=== PATIENT | male | born 1950 | race Caucasian/White ===

== ENCOUNTER 2018-04-02 14:08 | Inpatient (IN) | payer OTHER, SELFPAY ==
[2018-04-02 14:40] VITALS: BP 158/88; PULSE 76; RESP 17; TEMP 36.2; O2SAT 97
[2018-04-02 15:13] LABS: Bacteria Urine Occasional (0-1); Ictotest Urine Positive (Negative); RBC Urine 0-1/HPF (0-5/HPF); Squamous Epithelial Cell Urine 0-1 /HPF; WBC Urine 1-5/HPF (0-5/HPF)
[2018-04-02 15:14] LABS: Culture Indicated Urine Specimen Cultured; Mucus Urine 2+ (Negative)
[2018-04-02 15:20] LABS: Add Manual Diff / Slide Review NO; Basophils Percent Auto 0.5 % (0-2); Eosinophils Percent Auto 1.2 % (2-4); Hematocrit 44.3 % (41-53); Hemoglobin 15.2 g/dL (13.5-17.5); Lymphocytes Percent Auto 9.2 % (25-40); Mean Corpuscular HGB Conc 34.4 % (30-36); Mean Corpuscular Hemoglobin 29.5 PG (26-34); Monocytes Percent Auto 8.8 % (3-14); Neutrophils Absolute Auto 7000 /uL (3000-5900); Neutrophils Percent Auto 80.3 % (50-75); Platelet Count 193 X10^3/uL (150-400); Red Blood Cell Count 5.15 X10^6/uL (4.5-5.9); Red Cell Distribution Width 14.7 % (11.6-14.8); White Blood Cell Count 8.7 X10^3/uL (4.5-11.0)
[2018-04-02 15:29] LABS: INR 0.9 (0.9-1.3); Prothrombin Time 10.1 SECONDS (10.1-12.7)
[2018-04-02 15:32] LABS: PTT Partial Thromboplastin Tim 59 SECONDS (26.4-36.2)
[2018-04-02 15:33] LABS: Alanine Aminotransferase 312 IU/L (21-72); Albumin 3.9 g/dL (3.5-5.0); Alkaline Phosphatase 291 U/L (38-126); Aspartate Aminotransferase 178 IU/L (17-59); BUN Creatinine Ratio 21.4 (6-22); Bilirubin Total 9.6 mg/dL (0.2-1.3); Blood Urea Nitrogen 15 mg/dL (9-20); Calcium 8.8 mg/dL (8.4-10.2); Carbon Dioxide 25 mmol/L (22-32); Chloride 101 mmol/L (98-107); Estimated Glomerular Filt Rate > 60.0 mL/min (>60); Glucose 127 mg/dL (80-110); HEMOLYSIS < 15 (0-50); Lipase 134 U/L (23-300); Potassium 3.7 mmol/L (3.4-5.1); Sodium 139 mmol/L (137-145); Total Protein 7.9 g/dL (6.3-8.2)
--- NOTE | 2018-04-02 16:20 | ED.MALEGU ---
HPI - Male Genitourinary <ALEXEY Lorenzana - Last Filed: 04/02/18 21:31> General Chief complaint: Urogenital-Male Stated complaint: skin and eyes yellow Time Seen by Provider: 04/02/18 16:19 Source: patient Mode of arrival: ambulatory Limitations: no limitations History of Present Illness HPI Narrative: 67-year-old male with history of hyperlipidemia and is a former smoker here for complaint of having nausea vomiting with generalized abdominal discomfort over the past for 5 days. He also states that he noticed that his skin is yellow and his eyes were yellow over the past couple of days. Positive p.o. intake. Last bowel movement was earlier today as unremarkable. He also reports having dark colored urine. He denies any dysuria. He denies any frequent urination. He denies any right upper quadrant pain however does state that he has had some pain to his generalized abdomen periodically. he denies any recent travel. He denies any history of hepatitis. Related Data Home Medications Medication Instructions Recorded Confirmed vit C,T-Cv-mdcjd-lutein-zeaxan 1 tab PO QDAY #0 01/09/17 04/02/18 [PreserVision AREDS-2] [probiotic] See Label Instructions PO .QDAY 11/07/17 04/02/18 aspirin 81 mg tablet,delayed 81 mg PO DAILY tab 11/07/17 04/02/18 release vitamin D3 3,775 unit-folic acid 1 1 cap PO DAILY #0 cap 11/07/17 04/02/18 mg capsule Allergies Allergy/AdvReac Type Severity Reaction Status Date / Time amoxicillin [AMOXICILLIN] Allergy Intermediate HIVES-DELAYED Verified 04/02/18 14:40 RESPONSE Review of Systems <ALEXEY Lorenzana - Last Filed: 04/02/18 21:31> Constitutional Denies chills, Denies fever(s), Denies lethargy and Denies weakness Eyes Denies change in vision, Denies eye discharge, Denies irritation and Denies loss of vision ENT Ears, Nose, Mouth, and Throat: Denies change in voice, Denies neck pain and Denies sore throat Cardiovascular Denies chest pain, Denies irregular heart rhythm, Denies lightheadedness, Denies palpitations, Denies dyspnea, Denies dyspnea on exertion and Denies orthopnea Respiratory Denies cough, Denies dyspnea, Denies dyspnea on exertion and Denies wheezing Gastrointestinal Gastrointestinal: Reports abdominal pain, Reports nausea and Reports vomiting Genitourinary Denies hematuria, Denies flank pain, Denies urinary incontinence and Denies urinary urgency Musculoskeletal Denies neck pain Integumentary/Breasts Denies pruritus, Denies erythema, Denies rash and Denies wounds Neurologic Denies confusion, Denies loss of vision and Denies weakness Psychiatric Denies anxiety, Denies confusion, Denies depression, Denies homicidal ideation and Denies suicidal ideation Endocrine Denies palpitations Hematologic/Lymphatic Denies easy bruising Allergic/Immunologic Denies wheezing Exam <ALEXEY Lorenzana - Last Filed: 04/02/18 21:31> Initial Vital Signs Initial Vital Signs: Vital Signs Temperature 97.2 F L 04/02/18 14:40 Pulse Rate 76 04/02/18 14:40 Respiratory Rate 17 04/02/18 14:40 Blood Pressure 158/88 H 04/02/18 14:40 Pulse Oximetry 97 04/02/18 14:40 Const General: cooperative and well developed Nutritional Appearance: well nourished Orientation: alert, awake, oriented x3 and not confused [facility] Mouth: oral mucosae normal and moist mucous membranes Eyes Conjunctivae: conjunctivae normal Sclera: sclerae normal and scleral abnormality ( Jaundice) bilaterally Pupils: PERRL EOM: EOM intact bilaterally Resp Effort & Inspection: normal respiratory effort, able to speak in complete sentences, no respiratory distress and no use of accessory muscles Auscultation: clear to auscultation bilaterally, no rales, no rhonchi and no wheezes Cardio Rate: regular rate Rhythm: regular rhythm Heart Sounds: no click, no gallops, no murmurs and no rubs Pulses: normal peripheral pulses GI Inspection: non-distended Palpation: soft, no hepatosplenomegaly, No guarding, No pulsatile mass and No tender Auscultation: normal bowel sounds General: No CVA tenderness Skin General: no rashes or lesions noted, No jaundice and No petechiae Neuro General: alert, oriented x3, gait normal and no focal motor deficits Speech: speech normal <Patti Cannon DO - Last Filed: 04/03/18 07:23> Initial Vital Signs Initial Vital Signs: Vital Signs Temperature 97.2 F L 11/29/18 14:40 Pulse Rate 76 04/02/18 14:40 Respiratory Rate 17 04/02/18 14:40 Blood Pressure 158/88 H 04/02/18 14:40 Pulse Oximetry 97 04/02/18 14:40 Course <ALEXEY Lorenzana - Last Filed: 04/02/18 21:31> Orders Ordered: Dextrose/Sodium Chloride (Dextrose 5%-0.45% Ns) 1,000 mls @ 125 mls/hr IV CONT KALIE Last Admin: 04/03/18 05:27 Dose: 125 mls/hr Infusion: 04/03/18 05:18 Dose: 125 mls/hr Admin: 04/02/18 21:18 Dose: 125 mls/hr Morphine Sulfate (Morphine) 2 mg IV Q4HR PRN PRN Reason: Pain, Moderate (4-6) Discontinued Medications Sodium Chloride (Normal Saline 0.9%) 1,000 mls @ 1,000 mls/hr IV BOLUS ONE Stop: 04/02/18 17:34 Last Infusion: 04/02/18 19:01 Dose: 0 mls/hr Admin: 04/02/18 17:08 Dose: 1,000 mls/hr Sodium Chloride (Normal Saline 0.9%) 1,000 mls @ 125 mls/hr IV CONT KALEI Last Infusion: 04/02/18 20:38 Dose: 125 mls/hr Infusion: 04/02/18 20:31 Dose: 0 mls/hr Admin: 04/02/18 20:01 Dose: 125 mls/hr Vital Signs - 8 hr 04/03/18 05:29 Temperature 98.1 F Pulse Rate 74 Respiratory Rate 18 Blood Pressure 115/77 Pulse Oximetry 96 <Patti Cannon DO - Last Filed: 04/03/18 07:23> Orders Ordered: Dextrose/Sodium Chloride (Dextrose 5%-0.45% Ns) 1,000 mls @ 125 mls/hr IV CONT KALIE Last Admin: 04/03/18 05:27 Dose: 125 mls/hr Infusion: 04/03/18 05:18 Dose: 125 mls/hr Admin: 04/02/18 21:18 Dose: 125 mls/hr Morphine Sulfate (Morphine) 2 mg IV Q4HR PRN PRN Reason: Pain, Moderate (4-6) Discontinued Medications Sodium Chloride (Normal Saline 0.9%) 1,000 mls @ 1,000 mls/hr IV BOLUS ONE Stop: 04/02/18 17:34 Last Infusion: 04/02/18 19:01 Dose: 0 mls/hr Admin: 04/02/18 17:08 Dose: 1,000 mls/hr Sodium Chloride (Normal Saline 0.9%) 1,000 mls @ 125 mls/hr IV CONT KALIE Last Infusion: 04/02/18 20:38 Dose: 125 mls/hr Infusion: 04/02/18 20:31 Dose: 0 mls/hr Admin: 04/02/18 20:01 Dose: 125 mls/hr Vital Signs - 8 hr 04/03/18 05:29 Temperature 98.1 F Pulse Rate 74 Respiratory Rate 18 Blood Pressure 115/77 Pulse Oximetry 96 MDM - Male Genitourinary <ALEXEY Lorenzana - Last Filed: 04/02/18 21:31> Lab Data Result diagrams: 04/02/18 15:11 04/02/18 15:11 Lab Results 04/02/18 04/02/18 04/02/18 Range/Units 14:48 15:11 15:11 WBC 8.7 (4.5-11.0) X10^3/uL RBC 5.15 (4.5-5.9) X10^6/uL Hgb 15.2 (13.5-17.5) g/dL Hct 44.3 (41-53) % MCV 86.0 (80-100) fL MCH 29.5 (26-34) PG MCHC 34.4 (30-36) % RDW 14.7 (11.6-14.8) % Plt Count 193 (150-400) X10^3/uL Neut % (Auto) 80.3 H (50-75) % Lymph % (Auto) 9.2 L (25-40) % [place] % (Auto) 8.8 (3-14) % Eos % (Auto) 1.2 L (2-4) % Baso % (Auto) 0.5 (0-2) % Neut # (Auto) 7000 H (6890-6827) /uL PT 10.1 (10.1-12.7) SECONDS INR 0.9 (0.9-1.3) APTT 59 H (26.4-36.2) SECONDS Sodium (137-145) mmol/L Potassium (3.4-5.1) mmol/L Chloride (98-107) mmol/L Carbon Dioxide (22-32) mmol/L BUN (9-20) mg/dL Creatinine (0.66-1.25) mg/dL Estimated GFR (>60) mL/min BUN/Creatinine Ratio (6-22) Glucose (80-110) mg/dL Calcium (8.4-10.2) mg/dL Total Bilirubin (0.2-1.3) mg/dL AST (17-59) IU/L ALT (21-72) IU/L Alkaline Phosphatase (38-126) U/L Total Protein (6.3-8.2) g/dL Albumin (3.5-5.0) g/dL Globulin (1.7-4.1) g/dL Albumin/Globulin Ratio (1.0-2.8) Lipase (23-300) U/L Urine Ictotest Positive H (Negative) Urine RBC 0-1/hpf (0-5/HPF) Urine WBC 1-5/hpf (0-5/HPF) Ur Squamous Epith Cells 0-1 /hpf Urine Bacteria Occasional (0-1) (None) Urine Mucus 2+ H (Negative) Ur Culture Indicated? Specimen cultured Micro UA Comment Not Reportable 04/02/18 Range/Units 15:11 WBC (4.5-11.0) X10^3/uL RBC (4.5-5.9) X10^6/uL Hgb (13.5-17.5) g/dL Hct (41-53) % MCV (80-100) fL MCH (26-34) PG MCHC (30-36) % RDW (11.6-14.8) % Plt Count (150-400) X10^3/uL Neut % (Auto) (50-75) % Lymph % (Auto) (25-40) % [place] % (Auto) (3-14) % Eos % (Auto) (2-4) % Baso % (Auto) (0-2) % Neut # (Auto) (2625-2213) /uL PT (10.1-12.7) SECONDS INR (0.9-1.3) APTT (26.4-36.2) SECONDS Sodium 139 (137-145) mmol/L Potassium 3.7 (3.4-5.1) mmol/L Chloride 101 (98-107) mmol/L Carbon Dioxide 25 (22-32) mmol/L BUN 15 (9-20) mg/dL Creatinine 0.70 (0.66-1.25) mg/dL Estimated GFR > 60.0 (>60) mL/min BUN/Creatinine Ratio 21.4 (6-22) Glucose 127 H (80-110) mg/dL Calcium 8.8 (8.4-10.2) mg/dL Total Bilirubin 9.6 H (0.2-1.3) mg/dL AST 178 H (17-59) IU/L ALT 312 H (21-72) IU/L Alkaline Phosphatase 291 H (38-126) U/L Total Protein 7.9 (6.3-8.2) g/dL Albumin 3.9 (3.5-5.0) g/dL Globulin 4.0 (1.7-4.1) g/dL Albumin/Globulin Ratio 1.0 (1.0-2.8) Lipase 134 (23-300) U/L Urine Ictotest (Negative) Urine RBC (0-5/HPF) Urine WBC (0-5/HPF) Ur Squamous Epith Cells Urine Bacteria (None) Urine Mucus (Negative) Ur Culture Indicated? Micro UA Comment Urine Dip Bedside Urine Glucose Negative Bedside Urine Bilirubin ++ 2 Bedside Urine Ketone - Negative Urine Specific [place] 1.025 Bedside Urine Occult Blood - Negative Bedside Urine pH 6.0 Bedside Urine Protein +/- 15 Bedside Urine Urobilinogen - Negative Bedside Urine Nitrite - Negative Bedside Urine Leukocytes + 70 Esterase MDM Narrative Medical decision making narrative: CBC was obtained was unremarkable. Chem panel shows elevated Bilirubin at 9.6. AST and ALT were also elevated at 178 and 312 respectively. alk-phos was elevated to 291. CT of the abdomen shows a a blockage at the distal common bile duct with some inflammation to the common bile duct wall with 1 cm diameter. there is some sludge in stones seen to the gallbladder however no gallbladder wall thickening. Discussed case with surgery Dr. Valverde recommends ERCP. Patient is a [place] patient. Discussed case with Dr. Lind who would like patient to go to [facility] for the ERCP. There is no bed available this evening so would request admission here and then transferred to [place] tomorrow for procedure. discussed case with Dr. Delarosa hospitalist who accepted patient for admission for tonight. Patient is bedridden patient services <Patti Joaquin Cannon, - Last Filed: 04/03/18 07:23> Lab Data Lab Results 04/02/18 04/02/18 04/02/18 Range/Units 14:48 15:11 15:11 WBC 8.7 (4.5-11.0) X10^3/uL RBC 5.15 (4.5-5.9) X10^6/uL Hgb 15.2 (13.5-17.5) g/dL Hct 44.3 (41-53) % MCV 86.0 (80-100) fL MCH 29.5 (26-34) PG MCHC 34.4 (30-36) % RDW 14.7 (11.6-14.8) % Plt Count 193 (150-400) X10^3/uL Neut % (Auto) 80.3 H (50-75) % Lymph % (Auto) 9.2 L (25-40) % [place] % (Auto) 8.8 (3-14) % Eos % (Auto) 1.2 L (2-4) % Baso % (Auto) 0.5 (0-2) % Neut # (Auto) 7000 H (7247-0916) /uL PT 10.1 (10.1-12.7) SECONDS INR 0.9 (0.9-1.3) APTT 59 H (26.4-36.2) SECONDS Sodium (137-145) mmol/L Potassium (3.4-5.1) mmol/L Chloride (98-107) mmol/L Carbon Dioxide (22-32) mmol/L BUN (9-20) mg/dL Creatinine (0.66-1.25) mg/dL Estimated GFR (>60) mL/min BUN/Creatinine Ratio (6-22) Glucose (80-110) mg/dL Calcium (8.4-10.2) mg/dL Total Bilirubin (0.2-1.3) mg/dL AST (17-59) IU/L ALT (21-72) IU/L Alkaline Phosphatase (38-126) U/L Total Protein (6.3-8.2) g/dL Albumin (3.5-5.0) g/dL Globulin (1.7-4.1) g/dL Albumin/Globulin Ratio (1.0-2.8) Lipase (23-300) U/L Urine Ictotest Positive H (Negative) Urine RBC 0-1/hpf (0-5/HPF) Urine WBC 1-5/hpf (0-5/HPF) Ur Squamous Epith Cells 0-1 /hpf Urine Bacteria Occasional (0-1) (None) Urine Mucus 2+ H (Negative) Ur Culture Indicated? Specimen cultured Micro UA Comment Not Reportable 04/02/18 Range/Units 15:11 WBC (4.5-11.0) X10^3/uL RBC (4.5-5.9) X10^6/uL Hgb (13.5-17.5) g/dL Hct (41-53) % MCV (80-100) fL MCH (26-34) PG MCHC (30-36) % RDW (11.6-14.8) % Plt Count (150-400) X10^3/uL Neut % (Auto) (50-75) % Lymph % (Auto) (25-40) % [place] % (Auto) (3-14) % Eos % (Auto) (2-4) % Baso % (Auto) (0-2) % Neut # (Auto) (0910-4636) /uL PT (10.1-12.7) SECONDS INR (0.9-1.3) APTT (26.4-36.2) SECONDS Sodium 139 (137-145) mmol/L Potassium 3.7 (3.4-5.1) mmol/L Chloride 101 (98-107) mmol/L Carbon Dioxide 25 (22-32) mmol/L BUN 15 (9-20) mg/dL Creatinine 0.70 (0.66-1.25) mg/dL Estimated GFR > 60.0 (>60) mL/min BUN/Creatinine Ratio 21.4 (6-22) Glucose 127 H (80-110) mg/dL Calcium 8.8 (8.4-10.2) mg/dL Total Bilirubin 9.6 H (0.2-1.3) mg/dL AST 178 H (17-59) IU/L ALT 312 H (21-72) IU/L Alkaline Phosphatase 291 H (38-126) U/L Total Protein 7.9 (6.3-8.2) g/dL Albumin 3.9 (3.5-5.0) g/dL Globulin 4.0 (1.7-4.1) g/dL Albumin/Globulin Ratio 1.0 (1.0-2.8) Lipase 134 (23-300) U/L Urine Ictotest (Negative) Urine RBC (0-5/HPF) Urine WBC (0-5/HPF) Ur Squamous Epith Cells Urine Bacteria (None) Urine Mucus (Negative) Ur Culture Indicated? Micro UA Comment Urine Dip Bedside Urine Glucose Negative Bedside Urine Bilirubin ++ 2 Bedside Urine Ketone - Negative Urine Specific [place] 1.025 Bedside Urine Occult Blood - Negative Bedside Urine pH 6.0 Bedside Urine Protein +/- 15 Bedside Urine Urobilinogen - Negative Bedside Urine Nitrite - Negative Bedside Urine Leukocytes + 70 Esterase Discharge Plan Departure Patient Disposition: Admitted As Inpatient Clinical Impression: Serum total bilirubin elevated Discharge Date/Time: 04/02/18 20:31 Interventions: ED Discharge Assessment Last Done: 04/02/18 20:22 Admit Date/Time: 04/02/18 20:07 Admit Provider: Leoncio Delarosa <Patti Cannon DO - Last Filed: 04/03/18 07:23> Cosign ED Attending Cosignature Attestation: I was immediately available in the department for consultation. This documentation has been reviewed and I agree with assessment and plan. Supervised by Patti Cannon DO
--- NOTE | 2018-04-02 16:35 | DI.CT.S_ITS ---
PROCEDURE: CT ABDOMEN PELVIS W CON INDICATIONS: jaundice elevated liver enzymes TECHNIQUE: After the administration of intravenous contrast, 5 mm thick sections acquired from the diaphragm to the symphysis. 5 mm coronal and sagittal reformats were acquired. For radiation dose reduction, the following was used: automated exposure control, adjustment of mA and/or kV according to patient size. COMPARISON: None. FINDINGS: Image quality: Excellent. ABDOMEN: Lung bases: Lung bases are clear. Heart size is normal. Solid organs: Liver is normal in size and enhancement. The gallbladder demonstrates apparent layering gallstone/sludge. No musa gallbladder wall thickening is seen. There is intrahepatic and extrahepatic biliary dilatation, with the common duct measuring up to 1 cm. On series 4 image 36, there is a relatively abrupt cut off of the common duct seen. The pancreas is largely fatty replaced. No pancreatic ductal dilatation is seen. Spleen is normal in size and enhancement. No adrenal nodules. Kidneys demonstrate normal size and enhancement, without hydronephrosis. Peritoneum and bowel: Bowel loops demonstrate normal wall thickness and caliber. No free fluid or air. Incidental note is made of a normal-appearing appendix. Nodes and vessels: No retroperitoneal or mesenteric adenopathy by size criteria. Aorta and inferior vena cava are normal in size. Miscellaneous: No ventral hernias. PELVIS: Genitourinary: Bladder wall thickness is normal. Miscellaneous: No inguinal hernias or adenopathy. Bones: No suspicious bony lesions. No vertebral body compression fractures. Degenerative changes are seen throughout, which are most prominent involving the L5-S1 level. IMPRESSION: Mild biliary dilatation, with an abrupt cut off seen of the distal common bile duct. Differential diagnosis includes a stone, stricture, or potentially neoplasm. As clinically appropriate, an MRCP could be considered for further evaluation (assuming that there is no contraindication to MRI). Likely layering stones/sludge seen within the gallbladder. Incidental note is made of: Focal L5-S1 degenerative change Dictated by: Alejo Arana M.D. on 04/02/2018 at 16:18 Approved by: Alejo Arana M.D. on 04/02/2018 at 16:22
[2018-04-02] MEDS: SODIUM CHLORIDE 0.9% 1,000 ML 1000 ML IV (17:08)
[2018-04-02] MEDS: SODIUM CHLORIDE 0.9% 1,000 ML 125 ML IV (20:01)
[2018-04-02 20:18] VITALS: BMI 43.9
[2018-04-02 20:24] VITALS: BP 168/91; PULSE 88; RESP 20; TEMP 37; O2SAT 99
[2018-04-02 20:35] VITALS: BP 161/80; PULSE 79; RESP 20; TEMP 36.9; O2SAT 97
[2018-04-02 21:10] VITALS: O2SAT 97
[2018-04-02] MEDS: DEXTROSE 5%-0.45% NS 1,000 ML 125 ML IV (21:18)
--- NOTE | 2018-04-02 21:30 | PC.NURSE ---
Patient up to floor from ED by 2034. Patient is ambulatory without walker, 97% on RA, skin intact, denies tingling or numbness, and denies any pain except for heartburn. Patient sitting in chair, oriented to call light and its use, verbalizes compliance to use it instead of getting up by himself. IVF infusing as ordered. Patient states he feels somewhat nauseous. Patient given mouth swab for oral care. Skin and eyes are yellow. MD at bedside discussing plan of care at this time. Will continue to monitor.
--- NOTE | 2018-04-02 21:47 | P.HP_ITS ---
History of Present Illness Date Patient Seen: 04/02/18 Time Patient Seen: 21:40 Chief complaint: skin and eyes yellow Narrative: 67-year-old male presents with jaundice. He started having symptoms of constipation day after Thanksgiving and then today started having some vomiting and some what he describes as acid in his stomach and he has noticed that his urine became very dark yellow. Constipation continued. He was then brought to the urgent care and then they referred him to the ER. In the ER CT scan of the abdomen was done which showed an obstruction in the common bile duct Patient History Medical History Shoulder pain (Chronic ~2013) Dupuytrens contracture (Chronic 2005) Osteoarthritis (Chronic 2009) Psoriasis (Chronic 2014) Allergic rhinitis (Chronic 1967) Hearing loss (Chronic 2010) Tinnitus of both ears (Chronic Unknown) Colon polyps (Resolved 1997) Hyperlipemia (Chronic 1989) Chickenpox (Resolved 1957) Fractures (Resolved 1963) Surgical History S/P total knee arthroplasty (Resolved 01/2017) Hx of tracheostomy (Resolved 1956) Status post knee surgery (Chronic) History of knee replacement (Chronic) Family & Social History Social History: household members spouse Prior Living Arrangements House Safety & Behavioral: Feels Safe in Current Yes Environment Been Physically Hurt or No Threatened By a Person Suicidal Ideation Description None Suicide Plan Description No Plan Tobacco & Substance use: Smoking Status Former smoker alcohol intake current alcohol intake frequency 3 or more drinks per day Substance Use Type marijuana Meds Home Medications Medication Instructions Recorded Confirmed Type vit C,L-Yz-btfth-lutein-zeaxan 1 tab PO QDAY #0 01/09/17 04/02/18 History [PreserVision AREDS-2] [probiotic] See Label Instructions PO .QDAY 11/07/17 04/02/18 History aspirin 81 mg tablet,delayed 81 mg PO DAILY tab 11/07/17 04/02/18 History release vitamin D3 3,775 unit-folic acid 1 1 cap PO DAILY #0 cap 11/07/17 04/02/18 History mg capsule Allergies Allergy/AdvReac Type Severity Reaction Status Date / Time amoxicillin [AMOXICILLIN] Allergy Intermediate HIVES-DELAYED Verified 04/02/18 14:40 RESPONSE Review of Systems Constitutional Constitutional: Reports system reviewed and no additional complaints, except as documented Eyes Eyes: Reports system reviewed; no additional complaints, except as documented ENT Ears, Nose, Mouth, and Throat: Yes system reviewed; no additional complaints, except as documented Cardiovascular Cardiovascular: Reports system reviewed; no additional complaints, except as documented Respiratory Respiratory: Reports system reviewed and no additional complaints, except as documented Gastrointestinal Gastrointestinal: Reports abdominal pain and Reports vomiting Genitourinary Genitourinary: Reports system reviewed and no additional complaints, except as documented Musculoskeletal Musculoskeletal: Reports system reviewed; no additional complaints, except as documented Integumentary/Breasts Skin/Breast: Reports system reviewed and no additional complaints, except as documented Neurologic Neurologic: Reports system reviewed and no additional complaints, except as documented Psychiatric Psychiatric: Reports system reviewed and no additional complaints, except as documented Endocrine Endocrine: Reports system reviewed and no additional complaints, except as documented Hematologic/Lymphatic Hematologic/Lymphatic: Reports system reviewed and no additional complaints, except as documented Allergic/Immunologic Allergic/Immunologic: Reports system reviewed and no additional complaints, except as documented Exam Vital Signs (past 8 hours): - 04/02/18 14:40 04/02/18 20:24 04/02/18 20:35 Temperature 97.2 F L 98.6 F 98.4 F Pulse Rate 76 88 79 Respiratory Rate 17 20 20 Blood Pressure 158/88 H 161/80 H Blood Pressure [Left Arm] 168/91 H Pulse Oximetry 97 99 97 04/02/18 21:10 Temperature Pulse Rate Respiratory Rate Blood Pressure Blood Pressure [Left Arm] Pulse Oximetry 97 Oxygen Delivery Method Room Air Oxygen Flow Rate 0 Narrative Exam Narrative: Middle-aged male sitting up in a chair apparently jaundiced Oropharynx clear Neck is supple Lungs clear Heart regular rhythm Abdomen soft nontender bowel sounds present no masses Lower extremities trace edema Skin warm and dry Neuro exam awake alert oriented x3 no focal deficits Objective Labs Result Diagrams: 04/02/18 15:11 04/02/18 15:11 Labs: Laboratory Results - last 24 hr 04/02/18 04/02/18 04/02/18 14:48 15:11 15:11 WBC 8.7 RBC 5.15 Hgb 15.2 Hct 44.3 MCV 86.0 MCH 29.5 MCHC 34.4 RDW 14.7 Plt Count 193 Neut % (Auto) 80.3 H Lymph % (Auto) 9.2 L [place] % (Auto) 8.8 Eos % (Auto) 1.2 L Baso % (Auto) 0.5 Neut # (Auto) 7000 H PT 10.1 INR 0.9 APTT 59 H Sodium Potassium Chloride Carbon Dioxide BUN Creatinine Estimated GFR BUN/Creatinine Ratio Glucose Calcium Total Bilirubin AST ALT Alkaline Phosphatase Total Protein Albumin Globulin Albumin/Globulin Ratio Lipase Urine Ictotest Positive H Urine RBC 0-1/hpf Urine WBC 1-5/hpf Ur Squamous Epith Cells 0-1 /hpf Urine Bacteria Occasional (0-1) Urine Mucus 2+ H Ur Culture Indicated? Specimen cultured Micro UA Comment Not Reportable 04/02/18 15:11 WBC RBC Hgb Hct MCV MCH MCHC RDW Plt Count Neut % (Auto) Lymph % (Auto) [place] % (Auto) Eos % (Auto) Baso % (Auto) Neut # (Auto) PT INR APTT Sodium 139 Potassium 3.7 Chloride 101 Carbon Dioxide 25 BUN 15 Creatinine 0.70 Estimated GFR > 60.0 BUN/Creatinine Ratio 21.4 Glucose 127 H Calcium 8.8 Total Bilirubin 9.6 H AST 178 H ALT 312 H Alkaline Phosphatase 291 H Total Protein 7.9 Albumin 3.9 Globulin 4.0 Albumin/Globulin Ratio 1.0 Lipase 134 Urine Ictotest Urine RBC Urine WBC Ur Squamous Epith Cells Urine Bacteria Urine Mucus Ur Culture Indicated? Micro UA Comment Assessment & Plan Plan: Assessment/Plan Narrative: One. Mild biliary dilatation with distal common bile duct obstruction. Patient jaundice symptomatic. CT scan showing these abnormalities. The emergency room provider contacted surgery who suggested an ERCP and attempts were made to transfer the patient to [facility] where his insurance for firs they had no beds available so the patient will be placed here overnight admitted at inpatient placed on IV fluids and kept NPO in anticipation of transfer tomorrow morning for ERCP
[2018-04-02 23:00] VITALS: BP 162/83; PULSE 70; RESP 16; TEMP 37; O2SAT 97; O2SAT 99
[2018-04-03] MEDS: DEXTROSE 5%-0.45% NS 1,000 ML 125 ML IV ×2 (05:27→14:00)
[2018-04-03 05:29] VITALS: BP 115/77; PULSE 74; RESP 18; TEMP 36.7; O2SAT 96
--- NOTE | 2018-04-03 05:59 | PC.NURSE ---
04/03 0600; pt alert and oriented with VSS on RA, denied pain throughout this shift. IVF maintained, adequate urine output quantity but continues to be tea colored and viscous in character. Anticipates transfer during day.
[2018-04-03 07:35] VITALS: BP 123/62; PULSE 74; RESP 18; TEMP 37.4; O2SAT 93
[2018-04-03 08:44] LABS: Alanine Aminotransferase 275 IU/L (21-72); Albumin 3.2 g/dL (3.5-5.0); Albumin Globulin Ratio 0.9 (1.0-2.8); Alkaline Phosphatase 250 U/L (38-126); Aspartate Aminotransferase 167 IU/L (17-59); BUN Creatinine Ratio 17.1 (6-22); Bilirubin Total 8.9 mg/dL (0.2-1.3); Blood Urea Nitrogen 12 mg/dL (9-20); Calcium 8.4 mg/dL (8.4-10.2); Carbon Dioxide 25 mmol/L (22-32); Chloride 104 mmol/L (98-107); Estimated Glomerular Filt Rate > 60.0 mL/min (>60); Globulin 3.4 g/dL (1.7-4.1); Glucose 136 mg/dL (80-110); HEMOLYSIS < 15 (0-50); Potassium 3.6 mmol/L (3.4-5.1); Sodium 140 mmol/L (137-145); Total Protein 6.6 g/dL (6.3-8.2)
--- NOTE | 2018-04-03 08:53 | CM.DANOTE ---
Addendum entered by Julissa Childs LPN 04/03/18 14:51: Received request from RN coordinator Jose Angel for assist in finding out where in process this transfer was in terms of [facility] authorization as he was in middle of urgent situation with another pt. Updated by NEO Guajardo that she had just spoken with Mary Ann/Adam CM assigned to pt. Called Mary Ann. She reported that usual technical coordinator Samantha was off today, Joselin was the primary contact at [phone]. Mary Ann is also trying to assist: [phone]. Confirmed for Mary Ann that ERCP was not available in this facility. She noted that this would be authorized and that if they had been called this morning they could have been assisting with this transfer process. She said they had already been on the phone with [facility] but needed to coordinate all of this with the RN Coordinator, hospitalist (given Dr. Conti's contact number) and surgeon (Dr. Dowd on today and contact info provided.). Gave Mary Ann the contact number for the RN coordinator desk and she will follow up with Jose Angel and then james taylor as need be. Later discussion with Care management steam cleaning machine operator showed that Mary Ann had called the UR desk, the dcp/healthcare social worker desk and the CMAA desk and left messages re this case. She was finally able to talk with NEO. Info and contact numbers provided to CARRI Walter. Transfer will continue to be coordinated with [facility]/ RN coordinator team and [facility] or other accepting facility. Original Note: Discharge Planning/Care Management DCP: assessment: case received, EMR reviewed and plan for transfer to an appropriate facility for ERCP is noted. Confirmed with CARRI Walter that he is working on this. Pt is a 67 year old male who admitted to care of hospitalist team last night. Surgery was consulted and need for ERCP identified. Payer: [facility] ADV. P: follow prn if needs arise... Transfer pending to higher level of specialty care facility. CM Discharge Assessment Start: 04/03/18 08:50 Freq: Status: Active Protocol: Document 04/03/18 08:51 ITV (Rec: 04/03/18 08:53 ITV [id number]) Discharge Planning Assessment History Provided By Medical Record Prior Living Arrangements House Household Members spouse Comment Physician and RN coordinator Jose Angel working on transfer to appropriate facility for ERCP. Comment pending transfer/NA at this time Review Status In Process Next Review Type Continued Stay Review
[2018-04-03 09:15] VITALS: O2SAT 98
[2018-04-03 11:55] VITALS: BP 130/79; PULSE 73; RESP 17; TEMP 37.1; O2SAT 96
--- NOTE | 2018-04-03 12:22 | PC.NURSE ---
Day Shift- Pt A&OX4, pleasant & cooperative. Indep in room with steady gait. NPO, mouth swabs given for comfort. IVF infusing well to Right hand PIV. Pt denies pain/discomfort. Sttaes this AM had intermittent acid reflux, non upon reassessment and it was non distressing. Denies nausea. T-max 99.3 this AM & upon reassessment was 98.7. Can make needs known. Awaiting transfer to [place] for ERCP. Will get further update from Coordinator after 1300. Pt updated.
[2018-04-03 15:23] VITALS: BP 125/80; PULSE 60; RESP 12; TEMP 36.8; O2SAT 96
--- NOTE | 2018-04-03 16:04 | P.DS_ITS ---
History of Present Illness Date Patient Seen: 04/03/18 Chief complaint: skin and eyes yellow Narrative: 67-year-old male presents with jaundice. He started having symptoms of constipation day after Thanks[place] and then today started having some vomiting and some what he describes as acid in his stomach and he has noticed that his urine became very dark yellow. Constipation continued. He was then brought to the urgent care and then they referred him to the ER. In the ER CT scan of the abdomen was done which showed an obstruction in the common bile duct Discharge Providers Date of admission: 04/02/18 20:07 Primary care physician: Dalton Youssef MD Discharge provider: Maddison Conti MD Discharge Date: 04/03/18 Summary Discharge Diagnosis: Painless Jaundice Hospital Course: He remains without abdominal pain, nausea or vomiting. The bilirubin has dropped from 9.6 down to 8.9. The alk phosphatase has dropped from 291 down to 250. The ALT has dropped from 03/12 down to 275. The AST has dropped from 178 lb to 167. We have been able to successfully obtained transfer permission to a higher level facility with GI consultation and potential for diagnostic ERCP. He is discussed with the [place] hospitalist at [facility] Dr. Adalid Chaves phone number [phone] Status at Discharge Functional status at discharge: independent ambulation Overall status at discharge: patient is progressing back to baseline Time Spent with Patient Less than 30 minutes Exam Vital Signs (past 8 hours): - 04/03/18 09:15 04/03/18 11:55 Temperature 98.7 F Pulse Rate 73 Respiratory Rate 17 Blood Pressure 130/79 Pulse Oximetry 98 96 Oxygen Delivery Method Room Air Oxygen Flow Rate 0 Narrative Exam Narrative: Alert and oriented x3. No apparent distress. Heart regular rate and rhythm without murmur. Lungs clear to auscultation. Abdomen soft bowel sounds positive nontender no organomegaly, quite obese. Extremities no ankle edema. Skin is moderately jaundiced as is the sclera. Objective Labs Result Diagrams: 04/02/18 15:11 04/03/18 08:07 Labs: Laboratory Results - last 24 hr 04/03/18 08:07 Sodium 140 Potassium 3.6 Chloride 104 Carbon Dioxide 25 BUN 12 Creatinine 0.70 Estimated GFR > 60.0 BUN/Creatinine Ratio 17.1 Glucose 136 H Calcium 8.4 Total Bilirubin 8.9 H AST 167 H ALT 275 H Alkaline Phosphatase 250 H Total Protein 6.6 Albumin 3.2 L Globulin 3.4 Albumin/Globulin Ratio 0.9 L Discharge Plan Discharge Plan Patient Disposition: [facility] Transfer to: [facility] Under care of provider: Dr. Chaves Discharge Med Rec/Prescriptions Prescriptions: No Action aspirin 81 mg tablet,delayed release (DR/EC) 81 mg PO DAILY RF: 0 vit C,R-Af-piiel-lutein-zeaxan [PreserVision AREDS-2] 1 EACH capsule 1 tab PO QDAY Qty: 0 RF: 0 vitamin D3-folic acid [Ciferex] 3,775 unit- 1 mg capsule 1 cap PO DAILY Qty: 0 RF: 0 [probiotic] See Patient Comments PO .QDAY RF: 0 Follow up/Referrals: Dalton Youssef MD [Primary Care Provider] - Discharge Orders: Discharge (Order); Ordered 04/03/18 Ordered By: Maddison Conti Provider Discharge Instructions Diet: Nothing by Mouth Activity: Independent Oxygen: RA Visit Report/Discharge Packet Instructions: Endoscopic Retrograde Cholangiopancreatography, DI for Endoscopic Retrograde Cholangiopancreatography Discharge Data Primary Care Provider: Dalton Youssef Attending Provider: Leoncio Delarosa Admit Date/Time: 04/02/18 20:07
[2018-04-06 08:39] LABS: Hepatitis A Antibody IgM NONREACTIVE (NONREACTIVE); Hepatitis B Core Antibody IgM NONREACTIVE (NONREACTIVE); Hepatitis B Surface Antigen NONREACTIVE (NONREACTIVE); Hepatitis C Antibody NONREACTIVE
== END 2018-04-03 16:36 | disposition short-term general hospital (02) | DRG 446 ==
LOC: ED 19:45 → AC 20:08
PROVIDERS: Emergency Medicine; Family Medicine; Admitting Provider Internal Medicine; Emergency Provider Nurse Practitioner Family; PCP Student in an Organized Health Care Education/Training Program; Visit Provider Internal Medicine
DX: K83.1 Obstruction of bile duct (principal); Z87.891 Personal history of nicotine dependence
CPT/HCPCS: 36415; 74177; 80053; 80074; 81003; 81015; 83690; 85025; 85610; 85730; 87086; 96360; 96361; 99283; 99285; Q9967

== ENCOUNTER → 2018-05-09 13:05 | Outpatient (CLI) | payer OTHER, SELFPAY ==
[2018-05-09 13:48] LABS: Add Manual Diff / Slide Review NO; Basophils Percent Auto 0.2 % (0-2); Eosinophils Percent Auto 0.3 % (2-4); Hematocrit 42.4 % (41-53); Hemoglobin 14.4 g/dL (13.5-17.5); Lymphocytes Percent Auto 9.6 % (25-40); Mean Corpuscular Hemoglobin 29.3 PG (26-34); Mean Corpuscular Volume 86.2 fL (80-100); Monocytes Percent Auto 9.1 % (3-14); Neutrophils Absolute Auto 8600 /uL (1500-7000); Neutrophils Percent Auto 80.8 % (50-75); Platelet Count 228 X10^3/uL (150-400); Red Blood Cell Count 4.92 X10^6/uL (4.5-5.9); Red Cell Distribution Width 14.2 % (11.6-14.8); White Blood Cell Count 10.6 X10^3/uL (4.5-11.0)
[2018-05-09 14:05] LABS: Alanine Aminotransferase 195 IU/L (21-72); Albumin 3.3 g/dL (3.5-5.0); Alkaline Phosphatase 391 U/L (38-126); Aspartate Aminotransferase 140 IU/L (17-59); BUN Creatinine Ratio 26.7 (6-22); Bilirubin Conjugated 2.9 md/dL (0.0-0.3); Bilirubin Total 5.9 mg/dL (0.2-1.3); Blood Urea Nitrogen 16 mg/dL (9-20); Carbon Dioxide 25 mmol/L (22-32); Chloride 102 mmol/L (98-107); Estimated Glomerular Filt Rate > 60.0 mL/min (>60); Globulin 3.3 g/dL (1.7-4.1); Glucose 113 mg/dL (80-110); HEMOLYSIS 17 (0-50); Potassium 3.8 mmol/L (3.4-5.1); Sodium 139 mmol/L (137-145); Total Protein 6.6 g/dL (6.3-8.2)
== END ==
PROVIDERS: PCP Student in an Organized Health Care Education/Training Program; Visit Provider Physician Assistant
DX: R10.9 Unspecified abdominal pain (principal)
CPT/HCPCS: 36415; 80053; 80076; 85025

== ENCOUNTER → 2018-05-10 08:46 | Outpatient (CLI) | payer OTHER, SELFPAY ==
[2018-05-10 09:02] LABS: Add Manual Diff / Slide Review NO; Basophils Percent Auto 0.4 % (0-2); Eosinophils Percent Auto 0.6 % (2-4); Hemoglobin 14.3 g/dL (13.5-17.5); Lymphocytes Percent Auto 10.6 % (25-40); Mean Corpuscular Hemoglobin 29.4 PG (26-34); Mean Corpuscular Volume 86.2 fL (80-100); Monocytes Percent Auto 7.4 % (3-14); Neutrophils Absolute Auto 8400 /uL (1500-7000); Platelet Count 245 X10^3/uL (150-400); Red Blood Cell Count 4.86 X10^6/uL (4.5-5.9); Red Cell Distribution Width 14.7 % (11.6-14.8); White Blood Cell Count 10.4 X10^3/uL (4.5-11.0)
[2018-05-10 09:17] LABS: Alanine Aminotransferase 189 IU/L (21-72); Albumin 3.5 g/dL (3.5-5.0); Albumin Globulin Ratio 0.9 (1.0-2.8); Alkaline Phosphatase 411 U/L (38-126); Aspartate Aminotransferase 143 IU/L (17-59); BUN Creatinine Ratio 17.1 (6-22); Bilirubin Conjugated 0.7 md/dL (0.0-0.3); Bilirubin Unconjugated 0.9 mg/dL (0.0-1.1); Blood Urea Nitrogen 12 mg/dL (9-20); Carbon Dioxide 24 mmol/L (22-32); Chloride 104 mmol/L (98-107); Estimated Glomerular Filt Rate > 60.0 mL/min (>60); Globulin 3.9 g/dL (1.7-4.1); Glucose 122 mg/dL (80-110); HEMOLYSIS < 15 (0-50); Potassium 3.6 mmol/L (3.4-5.1); Sodium 138 mmol/L (137-145); Total Protein 7.4 g/dL (6.3-8.2)
== END ==
PROVIDERS: PCP Student in an Organized Health Care Education/Training Program; Visit Provider Physician Assistant
DX: R10.9 Unspecified abdominal pain (principal)
CPT/HCPCS: 36415; 80053; 80076; 85025

== ENCOUNTER 2018-06-08 15:28 | Inpatient (IN) | payer OTHER, SELFPAY ==
[2018-06-08 15:39] VITALS: BP 144/92; PULSE 109; RESP 14; TEMP 37.9; O2SAT 96
[2018-06-08 18:26] LABS: Add Manual Diff / Slide Review NO; Basophils Absolute Auto 100 /uL (0-100); Basophils Percent Auto 0.4 % (0-2); Eosinophils Absolute Auto 0 /uL (0-450); Eosinophils Percent Auto 0.1 % (2-4); Hematocrit 43.3 % (41-53); Hemoglobin 14.2 g/dL (13.5-17.5); Lymphocytes Absolute Auto 1300 /uL (1100-4500); Lymphocytes Percent Auto 8.6 % (25-40); Mean Corpuscular HGB Conc 32.8 % (30-36); Mean Corpuscular Hemoglobin 28.3 PG (26-34); Mean Corpuscular Volume 86.3 fL (80-100); Monocytes Absolute Auto 1200 /uL (0-900); Monocytes Percent Auto 8.3 % (3-14); Neutrophils Absolute Auto 12200 /uL (1500-7000); Neutrophils Percent Auto 82.6 % (50-75); Platelet Count 257 X10^3/uL (150-400); Red Blood Cell Count 5.01 X10^6/uL (4.5-5.9); White Blood Cell Count 14.8 X10^3/uL (4.5-11.0)
--- NOTE | 2018-06-08 18:26 | ED.FEVER ---
HPI - Fever <ALEXEY Lorenzana - Last Filed: 06/08/18 21:48> General Chief Complaint: Fever Stated Complaint: states he has a fever of 101.1 Time Seen by Provider: 06/08/18 18:17 Source: patient Mode of arrival: ambulatory Limitations: no limitations History of Present Illness HPI Narrative: 60-year-old male with history of cholecystitis and cholelithiasis here for complaint of pain into his right upper quadrant and also fever for the last couple of days. He denies any trauma to the abdomen area. Positive p.o. intake. No nausea vomiting. Denies any urinary symptoms. No stressors or relievers of his abdominal pain. He has recently had diagnosis of coli lithiasis and cholecystitis and was treated for this at [facility] couple months ago has been followed by then since then. He is currently awaiting laparoscopic procedure to remove the gallbladder and what the patient describes as a duodenal polyp. Last bowel movement was yesterday and was unremarkable. He denies any urinary symptoms. Denies any other concerns or complaints at this timeframe. Related Data Home Medications Medication Instructions Recorded Confirmed vit C,X-Yv-gnffj-lutein-zeaxan 1 tab PO QDAY #0 01/09/17 06/08/18 [PreserVision AREDS-2] [probiotic] See Label Instructions PO .QDAY 11/07/17 05/14/18 aspirin 81 mg tablet,delayed 81 mg PO DAILY tab 11/07/17 06/08/18 release vitamin D3 3,775 unit-folic acid 1 1 cap PO DAILY #0 cap 11/07/17 06/08/18 mg capsule Allergies Allergy/AdvReac Type Severity Reaction Status Date / Time amoxicillin [AMOXICILLIN] Allergy Intermediate HIVES-DELAYED Verified 06/08/18 15:44 RESPONSE Review of Systems <ALEXEY Lorenzana - Last Filed: 06/08/18 21:48> Constitutional Denies chills, Reports fever(s), Denies lethargy and Denies weakness Eyes Denies change in vision, Denies eye discharge, Denies irritation and Denies loss of vision ENT Ears, Nose, Mouth, and Throat: Denies change in voice, Denies neck pain and Denies sore throat Cardiovascular Denies chest pain, Denies irregular heart rhythm, Denies lightheadedness, Denies palpitations, Denies dyspnea, Denies dyspnea on exertion and Denies orthopnea Respiratory Denies cough, Denies dyspnea, Denies dyspnea on exertion and Denies wheezing Gastrointestinal Gastrointestinal: Reports abdominal pain Comments: Right upper quadrant pain Genitourinary Denies hematuria, Denies flank pain, Denies urinary incontinence and Denies urinary urgency Musculoskeletal Denies neck pain Integumentary/Breasts Denies pruritus, Denies erythema, Denies rash and Denies wounds Neurologic Denies confusion, Denies loss of vision and Denies weakness Psychiatric Denies anxiety, Denies confusion, Denies depression, Denies homicidal ideation and Denies suicidal ideation Endocrine Denies palpitations Hematologic/Lymphatic Denies easy bruising Allergic/Immunologic Denies wheezing Exam <ALEXEY Lorenzana - Last Filed: 06/08/18 21:48> Initial Vital Signs Initial Vital Signs: Vital Signs Temperature 100.3 F H 06/08/18 15:39 Pulse Rate 109 H 06/08/18 15:39 Respiratory Rate 14 06/08/18 15:39 Blood Pressure 144/92 H 06/08/18 15:39 Pulse Oximetry 96 06/08/18 15:39 Const General: cooperative and well developed Nutritional Appearance: well nourished Orientation: alert, awake, oriented x3 and not confused HENME Mouth: oral mucosae normal and mucous membranes abnormal Eyes Conjunctivae: conjunctivae normal Sclera: sclerae normal Pupils: PERRL EOM: EOM intact bilaterally Resp Effort & Inspection: normal respiratory effort, able to speak in complete sentences, no respiratory distress and no use of accessory muscles Auscultation: clear to auscultation bilaterally, no rales, no rhonchi and no wheezes Cardio Rate: regular rate Rhythm: regular rhythm Heart Sounds: no click, no gallops, no murmurs and no rubs Pulses: normal peripheral pulses GI Inspection: non-distended Palpation: soft, no hepatosplenomegaly, No guarding, No pulsatile mass and tender Auscultation: normal bowel sounds Other: Tenderness on palpation to right upper quadrant General: No CVA tenderness Skin General: no rashes or lesions noted, No jaundice and No petechiae Neuro General: alert, oriented x3, gait normal and no focal motor deficits Speech: speech normal <Celeste Yoder DO - Last Filed: 06/09/18 00:37> Initial Vital Signs Initial Vital Signs: Vital Signs Temperature 100.3 F H 06/08/18 15:39 Pulse Rate 109 H 06/08/18 15:39 Respiratory Rate 14 06/08/18 15:39 Blood Pressure 144/92 H 06/08/18 15:39 Pulse Oximetry 96 06/08/18 15:39 Course <ALEXEY Lorenzana - Last Filed: 06/08/18 21:48> Orders Ordered: ED Orders 06/08/18 18:07 Procalcitonin Stat 06/08/18 18:15 Complete Blood Count AUTO DIFF Stat Comprehensive Metabolic Panel Stat Lipase Stat 06/08/18 18:50 CT abdomen pelvis w con Stat 06/08/18 19:07 Lactate (Lactic Acid) Stat 06/08/18 20:03 US abdomen complete Stat 06/08/18 20:11 Influenza A and B by PCR Rapid Stat Sodium Chloride (Normal Saline 0.9%) 1,000 mls @ 125 mls/hr IV CONT KALIE Last Admin: 06/08/18 23:55 Dose: 125 mls/hr Infusion: 06/08/18 23:55 Dose: 0 mls/hr Infusion: 06/08/18 22:15 Dose: 0 mls/hr Admin: 06/08/18 21:03 Dose: 125 mls/hr Discontinued Medications Acetaminophen (Tylenol) 975 mg PO NOW ONE Stop: 06/08/18 22:33 Last Admin: 06/08/18 23:55 Dose: 975 mg Levofloxacin (Levaquin) 750 mg in 150 mls @ 100 mls/hr IV NOW ONE Stop: 06/08/18 21:44 Last Infusion: 06/08/18 23:53 Dose: 100 mls/hr Infusion: 06/08/18 22:13 Dose: 0 mls/hr Admin: 06/08/18 21:04 Dose: 100 mls/hr Vital Signs - 8 hr 06/08/18 19:01 06/08/18 21:24 06/08/18 22:40 Temperature 99.4 F 101.1 F H 98.4 F Pulse Rate 87 89 92 H Respiratory Rate 16 16 18 Blood Pressure 140/80 Blood Pressure [Right Arm] 137/91 H 137/83 Pulse Oximetry 98 95 98 06/09/18 00:05 Temperature 99.4 F Pulse Rate 99 H Respiratory Rate 18 Blood Pressure 136/76 Blood Pressure [Right Arm] Pulse Oximetry 93 <Celeste Yoder DO - Last Filed: 06/09/18 00:37> Orders Ordered: ED Orders 06/08/18 18:07 Procalcitonin Stat 06/08/18 18:15 Complete Blood Count AUTO DIFF Stat Comprehensive Metabolic Panel Stat Lipase Stat 06/08/18 18:50 CT abdomen pelvis w con Stat 06/08/18 19:07 Lactate (Lactic Acid) Stat 06/08/18 20:03 US abdomen complete Stat 06/08/18 20:11 Influenza A and B by PCR Rapid Stat Sodium Chloride (Normal Saline 0.9%) 1,000 mls @ 125 mls/hr IV CONT KALIE Last Admin: 06/08/18 23:55 Dose: 125 mls/hr Infusion: 06/08/18 23:55 Dose: 0 mls/hr Infusion: 06/08/18 22:15 Dose: 0 mls/hr Admin: 06/08/18 21:03 Dose: 125 mls/hr Discontinued Medications Acetaminophen (Tylenol) 975 mg PO NOW ONE Stop: 06/08/18 22:33 Last Admin: 06/08/18 23:55 Dose: 975 mg Levofloxacin (Levaquin) 750 mg in 150 mls @ 100 mls/hr IV NOW ONE Stop: 06/08/18 21:44 Last Infusion: 06/08/18 23:53 Dose: 100 mls/hr Infusion: 06/08/18 22:13 Dose: 0 mls/hr Admin: 06/08/18 21:04 Dose: 100 mls/hr Vital Signs - 8 hr 06/08/18 19:01 06/08/18 21:24 06/08/18 22:40 Temperature 99.4 F 101.1 F H 98.4 F Pulse Rate 87 89 92 H Respiratory Rate 16 16 18 Blood Pressure 140/80 Blood Pressure [Right Arm] 137/91 H 137/83 Pulse Oximetry 98 95 98 06/09/18 00:05 Temperature 99.4 F Pulse Rate 99 H Respiratory Rate 18 Blood Pressure 136/76 Blood Pressure [Right Arm] Pulse Oximetry 93 MDM - Fever <ALEXEY Lorenzana - Last Filed: 06/08/18 21:48> Lab Data Result diagrams: 06/08/18 18:15 06/08/18 18:15 Lab Results 06/08/18 06/08/18 06/08/18 Range/Units 18:07 18:15 18:15 WBC 14.8 H (4.5-11.0) X10^3/uL RBC 5.01 (4.5-5.9) X10^6/uL Hgb 14.2 (13.5-17.5) g/dL Hct 43.3 (41-53) % MCV 86.3 (80-100) fL MCH 28.3 (26-34) PG MCHC 32.8 (30-36) % RDW 14.0 (11.6-14.8) % Plt Count 257 (150-400) X10^3/uL Neut % (Auto) 82.6 H (50-75) % Lymph % (Auto) 8.6 L (25-40) % [place] % (Auto) 8.3 (3-14) % Eos % (Auto) 0.1 L (2-4) % Baso % (Auto) 0.4 (0-2) % Neut # (Auto) 00046 H (2711-9616) /uL Lymph # (Auto) 1300 (2690-3428) /uL [place] # (Auto) 1200 H (0-900) /uL Eos # (Auto) 0 (0-450) /uL Baso # (Auto) 100 (0-100) /uL Sodium 134 L (137-145) mmol/L Potassium 5.1 (3.4-5.1) mmol/L Chloride 100 (98-107) mmol/L Carbon Dioxide 24 (22-32) mmol/L BUN 12 (9-20) mg/dL Creatinine 0.70 (0.66-1.25) mg/dL Estimated GFR > 60.0 (>60) mL/min BUN/Creatinine Ratio 17.1 (6-22) Glucose 109 (80-110) mg/dL Lactate (0.7-2.1) mmol/L Calcium 9.4 (8.4-10.2) mg/dL Total Bilirubin 1.6 H (0.2-1.3) mg/dL AST 91 H (17-59) IU/L ALT 114 H (21-72) IU/L Alkaline Phosphatase 306 H (38-126) U/L Total Protein 8.3 H (6.3-8.2) g/dL Albumin 4.0 (3.5-5.0) g/dL Globulin 4.3 H (1.7-4.1) g/dL Albumin/Globulin Ratio 0.9 L (1.0-2.8) Lipase 44 (23-300) U/L Procalcitonin 0.26 (<0.5) ng/mL Influenza A & B (PCR) (Negative) 06/08/18 06/08/18 Range/Units 19:07 20:11 WBC (4.5-11.0) X10^3/uL RBC (4.5-5.9) X10^6/uL Hgb (13.5-17.5) g/dL Hct (41-53) % MCV (80-100) fL MCH (26-34) PG MCHC (30-36) % RDW (11.6-14.8) % Plt Count (150-400) X10^3/uL Neut % (Auto) (50-75) % Lymph % (Auto) (25-40) % [place] % (Auto) (3-14) % Eos % (Auto) (2-4) % Baso % (Auto) (0-2) % Neut # (Auto) (8333-0141) /uL Lymph # (Auto) (0780-6885) /uL [place] # (Auto) (0-900) /uL Eos # (Auto) (0-450) /uL Baso # (Auto) (0-100) /uL Sodium (137-145) mmol/L Potassium (3.4-5.1) mmol/L Chloride (98-107) mmol/L Carbon Dioxide (22-32) mmol/L BUN (9-20) mg/dL Creatinine (0.66-1.25) mg/dL Estimated GFR (>60) mL/min BUN/Creatinine Ratio (6-22) Glucose (80-110) mg/dL Lactate 1.4 (0.7-2.1) mmol/L Calcium (8.4-10.2) mg/dL Total Bilirubin (0.2-1.3) mg/dL AST (17-59) IU/L ALT (21-72) IU/L Alkaline Phosphatase (38-126) U/L Total Protein (6.3-8.2) g/dL Albumin (3.5-5.0) g/dL Globulin (1.7-4.1) g/dL Albumin/Globulin Ratio (1.0-2.8) Lipase (23-300) U/L Procalcitonin (<0.5) ng/mL Influenza A & B (PCR) Negative (Negative) Imaging Data US - abdomen: Radiologist's impression: [address] [address] Ultrasound Report Signed Patient: Gonzalez Schwartz WMR#: [id number] : 1Acct:[id number] Age/Sex: 68 / MDate of Service: 06/08/18 Loc: ED Accession Number: [id number] Procedure: US abdomen complete Ordering Provider: Adalid Dove PROCEDURE: US ABDOMEN COMPLETE INDICATIONS: RIGHT UPPER QUADRANT PAIN TECHNIQUE: Real-time scanning was performed of the abdominal and retroperitoneal organs, with image documentation. COMPARISON: [facility], CT, CT ABDOMEN PELVIS W CON, 06/08/2018, 19:21. FINDINGS: Liver: Liver is normal in size and homogeneous in echotexture. Gallbladder: Sludge and stones are seen within gallbladder lumen and extending to neck of gallbladder. Diffuse gallbladder wall thickening with irregular contour is seen and measures up to 5.7 mm in thickness. Positive sonographic Torres's sign is also noted. Biliary ducts: Intrahepatic bile ducts are non-dilated. Extrahepatic bile duct caliber measures 4.9 mm. Normal is 6-7 mm or less in diameter, or 10 mm or less post-cholecystectomy. Pancreas: Visualized portions of the pancreas are sonographically normal. Spleen: Spleen is normal in size and homogeneous in echotexture. Kidneys: Kidneys are normal in size and echotexture. Right kidney measures 11.5 cm long; left kidney measures 13.6 cm long. No hydronephrosis or nephrolithiasis. No solid masses. Aorta: Visualized aorta is normal in caliber at less than 3 cm. Iliacs: Proximal common iliac arteries are normal in caliber at less than 2.5 cm. IVC: Intrahepatic inferior vena cava is patent. Miscellaneous: No free abdominal fluid. IMPRESSION: 1. Gallbladder wall thickening with positive sonographic Torres's sign consistent with cholecystitis. Stones and sludge material is seen within gallbladder lumen and extending to gallbladder neck. 2. No biliary ductal dilatation. Dictated by: Ayush Carranza M.D. on 06/08/2018 at 20:56 Approved by: Ayush Carranza M.D. on 06/08/2018 at 20:58 CT scan - abdomen: Radiologist's impression: [address] [address] [address] Scan Report Signed Patient: Gonzalez Schwartz WMR#: [id number] : 1Acct:[id number] Age/Sex: 68 / MDate of Service: 06/08/18 Loc: ED Accession Number: [id number] Procedure: CT abdomen pelvis w con Ordering Provider: Adalid Dove PROCEDURE: CT ABDOMEN PELVIS W CON INDICATIONS: Right upper quadrant pain with fever TECHNIQUE: After the administration of intravenous contrast, 5 mm thick sections acquired from the diaphragm to the symphysis. 5 mm coronal and sagittal reformats were acquired. For radiation dose reduction, the following was used: automated exposure control, adjustment of mA and/or kV according to patient size. COMPARISON: [facility], CT, CT ABDOMEN PELVIS W CON, 04/02/2018, 16:38. FINDINGS: Image quality: Excellent. ABDOMEN: Lung bases: Lung bases are clear. Heart size is normal. Solid organs: Gallbladder is markedly distended with diffuse bladder wall thickening and pericholecystic inflammatory changes. Mild intrahepatic biliary ductal dilatation is noted anomaly involving left hepatic lobe. Borderline distended common bile duct is also seen and measures up to 7 mm in diameter. No calcified gallstones or choledocholithiasis is seen. No biliary stent is visualized on this study.. Pancreas enhances normally. Spleen is normal in size and enhancement. No adrenal nodules. Kidneys demonstrate normal size and enhancement, without hydronephrosis. Peritoneum and bowel: Bowel loops demonstrate normal wall thickness and caliber. No free fluid or air. Appendix is visualized and is within normal limits. Mild descending colon and sigmoid colon diverticulosis is seen, not suggestive of acute diverticulitis. Nodes and vessels: No retroperitoneal or mesenteric adenopathy by size criteria. Aorta and inferior vena cava are normal in size. Miscellaneous: Small periumbilical hernia is seen containing fat only. PELVIS: Genitourinary: Bladder wall thickness is normal. Enlarged prostate gland is seen with significant mass effect a floor of urinary bladder. Miscellaneous: No inguinal hernias or adenopathy. Bones: No suspicious bony lesions. No vertebral body compression fractures. IMPRESSION: 1. Markedly inflamed appearing gallbladder is suggestive of cholecystitis of indeterminate age. Mild intrahepatic biliary ductal dilatation and mild dilatation of common bile duct. No calcified gallstones is seen. No calcified stone is noted within common bile duct. No biliary stent is visualized. 2. No bowel obstruction. Normal appendix. No free fluid or free air. 3. Enlarged prostate gland with significant mass effect a floor of urinary bladder. Dictated by: Ayush Carranza M.D. on 06/08/2018 at 19:56 Approved by: Ayush Carranza M.D. on 06/08/2018 at 20:03 MDM Narrative Medical decision making narrative: CBC shows elevated white count and elevated neutrophils. Otherwise unremarkable. Chem panel Shows mildly elevated AST and ALT of 91 and 114 respectively. Alk-phos was elevated at 306. Total bilirubin was at 1.6. CT of the abdomen was obtained and shows inflammation around the gallbladder indicating cholecystitis. Possibly mild thickened common bile duct of 7 mm. Ultrasound was then ordered and does show findings consistent with cholecystitis however is normal common bile duct. stone and sludge is seen within the gallbladder lumen extending in the gallbladder neck. Biliary stent is not seen on CT which is not new finding and was suspected that the patient may have passed the stent over the past several weeks. Discussed case with surgeon Dr. Alvarez who plans on taking patient to surgery tomorrow for cholecystectomy. [facility] fluids and IV antibiotics started. <Celeste Yoder, DO - Last Filed: 06/09/18 00:37> Lab Data Lab Results 06/08/18 06/08/18 06/08/18 Range/Units 18:07 18:15 18:15 WBC 14.8 H (4.5-11.0) X10^3/uL RBC 5.01 (4.5-5.9) X10^6/uL Hgb 14.2 (13.5-17.5) g/dL Hct 43.3 (41-53) % MCV 86.3 (80-100) fL MCH 28.3 (26-34) PG MCHC 32.8 (30-36) % RDW 14.0 (11.6-14.8) % Plt Count 257 (150-400) X10^3/uL Neut % (Auto) 82.6 H (50-75) % Lymph % (Auto) 8.6 L (25-40) % [place] % (Auto) 8.3 (3-14) % Eos % (Auto) 0.1 L (2-4) % Baso % (Auto) 0.4 (0-2) % Neut # (Auto) 97982 H (7049-9495) /uL Lymph # (Auto) 1300 (2367-5378) /uL [place] # (Auto) 1200 H (0-900) /uL Eos # (Auto) 0 (0-450) /uL Baso # (Auto) 100 (0-100) /uL Sodium 134 L (137-145) mmol/L Potassium 5.1 (3.4-5.1) mmol/L Chloride 100 (98-107) mmol/L Carbon Dioxide 24 (22-32) mmol/L BUN 12 (9-20) mg/dL Creatinine 0.70 (0.66-1.25) mg/dL Estimated GFR > 60.0 (>60) mL/min BUN/Creatinine Ratio 17.1 (6-22) Glucose 109 (80-110) mg/dL Lactate (0.7-2.1) mmol/L Calcium 9.4 (8.4-10.2) mg/dL Total Bilirubin 1.6 H (0.2-1.3) mg/dL AST 91 H (17-59) IU/L ALT 114 H (21-72) IU/L Alkaline Phosphatase 306 H (38-126) U/L Total Protein 8.3 H (6.3-8.2) g/dL Albumin 4.0 (3.5-5.0) g/dL Globulin 4.3 H (1.7-4.1) g/dL Albumin/Globulin Ratio 0.9 L (1.0-2.8) Lipase 44 (23-300) U/L Procalcitonin 0.26 (<0.5) ng/mL Influenza A & B (PCR) (Negative) 06/08/18 06/08/18 Range/Units 19:07 20:11 WBC (4.5-11.0) X10^3/uL RBC (4.5-5.9) X10^6/uL Hgb (13.5-17.5) g/dL Hct (41-53) % MCV (80-100) fL MCH (26-34) PG MCHC (30-36) % RDW (11.6-14.8) % Plt Count (150-400) X10^3/uL Neut % (Auto) (50-75) % Lymph % (Auto) (25-40) % [place] % (Auto) (3-14) % Eos % (Auto) (2-4) % Baso % (Auto) (0-2) % Neut # (Auto) (3022-4714) /uL Lymph # (Auto) (4788-9946) /uL [place] # (Auto) (0-900) /uL Eos # (Auto) (0-450) /uL Baso # (Auto) (0-100) /uL Sodium (137-145) mmol/L Potassium (3.4-5.1) mmol/L Chloride (98-107) mmol/L Carbon Dioxide (22-32) mmol/L BUN (9-20) mg/dL Creatinine (0.66-1.25) mg/dL Estimated GFR (>60) mL/min BUN/Creatinine Ratio (6-22) Glucose (80-110) mg/dL Lactate 1.4 (0.7-2.1) mmol/L Calcium (8.4-10.2) mg/dL Total Bilirubin (0.2-1.3) mg/dL AST (17-59) IU/L ALT (21-72) IU/L Alkaline Phosphatase (38-126) U/L Total Protein (6.3-8.2) g/dL Albumin (3.5-5.0) g/dL Globulin (1.7-4.1) g/dL Albumin/Globulin Ratio (1.0-2.8) Lipase (23-300) U/L Procalcitonin (<0.5) ng/mL Influenza A & B (PCR) Negative (Negative) Discharge Plan Departure Patient Disposition: Admitted As Inpatient Clinical Impression: Acute cholecystitis Discharge Date/Time: 06/08/18 22:15 Interventions: ED Discharge Assessment Last Done: 06/08/18 22:13 Admit Date/Time: 06/08/18 21:36 Admit Provider: Chip Leon <Celeste Yoder DO - Last Filed: 06/09/18 00:37> Cosign ED Attending Coschepeature Attestation: I was immediately available in the department for consultation. Documentation has been reviewed. I agree with assessment and plan.
[2018-06-08 18:41] LABS: Alanine Aminotransferase 114 IU/L (21-72); Albumin Globulin Ratio 0.9 (1.0-2.8); Alkaline Phosphatase 306 U/L (38-126); Aspartate Aminotransferase 91 IU/L (17-59); BUN Creatinine Ratio 17.1 (6-22); Bilirubin Total 1.6 mg/dL (0.2-1.3); Blood Urea Nitrogen 12 mg/dL (9-20); Calcium 9.4 mg/dL (8.4-10.2); Carbon Dioxide 24 mmol/L (22-32); Chloride 100 mmol/L (98-107); Estimated Glomerular Filt Rate > 60.0 mL/min (>60); Globulin 4.3 g/dL (1.7-4.1); Glucose 109 mg/dL (80-110); Lipase 44 U/L (23-300); Sodium 134 mmol/L (137-145); Total Protein 8.3 g/dL (6.3-8.2)
[2018-06-08 18:42] LABS: HEMOLYSIS 101 (0-50)
[2018-06-08 18:43] LABS: Potassium 5.1 mmol/L (3.4-5.1)
--- NOTE | 2018-06-08 18:50 | DI.CT.S_ITS ---
PROCEDURE: CT ABDOMEN PELVIS W CON INDICATIONS: Right upper quadrant pain with fever TECHNIQUE: After the administration of intravenous contrast, 5 mm thick sections acquired from the diaphragm to the symphysis. 5 mm coronal and sagittal reformats were acquired. For radiation dose reduction, the following was used: automated exposure control, adjustment of mA and/or kV according to patient size. COMPARISON: [facility], CT, CT ABDOMEN PELVIS W CON, 04/02/2018, 16:38. FINDINGS: Image quality: Excellent. ABDOMEN: Lung bases: Lung bases are clear. Heart size is normal. Solid organs: Gallbladder is markedly distended with diffuse bladder wall thickening and pericholecystic inflammatory changes. Mild intrahepatic biliary ductal dilatation is noted anomaly involving left hepatic lobe. Borderline distended common bile duct is also seen and measures up to 7 mm in diameter. No calcified gallstones or choledocholithiasis is seen. No biliary stent is visualized on this study.. Pancreas enhances normally. Spleen is normal in size and enhancement. No adrenal nodules. Kidneys demonstrate normal size and enhancement, without hydronephrosis. Peritoneum and bowel: Bowel loops demonstrate normal wall thickness and caliber. No free fluid or air. Appendix is visualized and is within normal limits. Mild descending colon and sigmoid colon diverticulosis is seen, not suggestive of acute diverticulitis. Nodes and vessels: No retroperitoneal or mesenteric adenopathy by size criteria. Aorta and inferior vena cava are normal in size. Miscellaneous: Small periumbilical hernia is seen containing fat only. PELVIS: Genitourinary: Bladder wall thickness is normal. Enlarged prostate gland is seen with significant mass effect a floor of urinary bladder. Miscellaneous: No inguinal hernias or adenopathy. Bones: No suspicious bony lesions. No vertebral body compression fractures. IMPRESSION: 1. Markedly inflamed appearing gallbladder is suggestive of cholecystitis of indeterminate age. Mild intrahepatic biliary ductal dilatation and mild dilatation of common bile duct. No calcified gallstones is seen. No calcified stone is noted within common bile duct. No biliary stent is visualized. 2. No bowel obstruction. Normal appendix. No free fluid or free air. 3. Enlarged prostate gland with significant mass effect a floor of urinary bladder. Dictated by: Ayush Carranza M.D. on 06/08/2018 at 19:56 Approved by: Ayush Carranza M.D. on 06/08/2018 at 20:03
[2018-06-08 19:01] VITALS: BP 137/91; PULSE 87; RESP 16; TEMP 37.4; O2SAT 98
[2018-06-08 19:29] LABS: Procalcitonin 0.26 ng/mL (<0.5)
[2018-06-08 19:34] LABS: Lactate (Lactic Acid) 1.4 mmol/L (0.7-2.1)
--- NOTE | 2018-06-08 20:03 | DI.US.S_ITS ---
PROCEDURE: US ABDOMEN COMPLETE INDICATIONS: RIGHT UPPER QUADRANT PAIN TECHNIQUE: Real-time scanning was performed of the abdominal and retroperitoneal organs, with image documentation. COMPARISON: [facility], CT, CT ABDOMEN PELVIS W CON, 06/08/2018, 19:21. FINDINGS: Liver: Liver is normal in size and homogeneous in echotexture. Gallbladder: Sludge and stones are seen within gallbladder lumen and extending to neck of gallbladder. Diffuse gallbladder wall thickening with irregular contour is seen and measures up to 5.7 mm in thickness. Positive sonographic Torres's sign is also noted. Biliary ducts: Intrahepatic bile ducts are non-dilated. Extrahepatic bile duct caliber measures 4.9 mm. Normal is 6-7 mm or less in diameter, or 10 mm or less post-cholecystectomy. Pancreas: Visualized portions of the pancreas are sonographically normal. Spleen: Spleen is normal in size and homogeneous in echotexture. Kidneys: Kidneys are normal in size and echotexture. Right kidney measures 11.5 cm long; left kidney measures 13.6 cm long. No hydronephrosis or nephrolithiasis. No solid masses. Aorta: Visualized aorta is normal in caliber at less than 3 cm. Iliacs: Proximal common iliac arteries are normal in caliber at less than 2.5 cm. IVC: Intrahepatic inferior vena cava is patent. Miscellaneous: No free abdominal fluid. IMPRESSION: 1. Gallbladder wall thickening with positive sonographic Torres's sign consistent with cholecystitis. Stones and sludge material is seen within gallbladder lumen and extending to gallbladder neck. 2. No biliary ductal dilatation. Dictated by: Ayush Carranza M.D. on 06/08/2018 at 20:56 Approved by: Ayush Carranza M.D. on 06/08/2018 at 20:58
[2018-06-08 20:31] LABS: Influenza A and B by PCR Rapid Negative (Negative)
[2018-06-08] MEDS: SODIUM CHLORIDE 0.9% 1,000 ML 125 ML IV ×2 (21:03→23:55)
[2018-06-08] MEDS: levoFLOXacin 750 MG/150 ML PIGGYBACK 100 MG IV (21:04)
[2018-06-08 21:24] VITALS: BP 137/83; PULSE 89; RESP 16; TEMP 38.4; O2SAT 95
--- NOTE | 2018-06-08 21:24 | ED_ITS ---
HPI - Fever <ALEXEY Lorenzana - Last Filed: 06/08/18 21:48> General Chief Complaint: Fever Stated Complaint: states he has a fever of 101.1 Time Seen by Provider: 06/08/18 18:17 Source: patient Mode of arrival: ambulatory Limitations: no limitations History of Present Illness HPI Narrative: 60-year-old male with history of cholecystitis and cholelithiasis here for complaint of pain into his right upper quadrant and also fever for the last couple of days. He denies any trauma to the abdomen area. Positive p.o. intake. No nausea vomiting. Denies any urinary symptoms. No stressors or relievers of his abdominal pain. He has recently had diagnosis of coli lithiasis and cholecystitis and was treated for this at [facility] couple months ago has been followed by then since then. He is currently awaiting laparoscopic procedure to remove the gallbladder and what the patient describes as a duodenal polyp. Last bowel movement was yesterday and was unremarkable. He denies any urinary symptoms. Denies any other concerns or complaints at this timeframe. Related Data Home Medications Medication Instructions Recorded Confirmed vit C,A-Fw-icpqb-lutein-zeaxan 1 tab PO QDAY #0 01/09/17 06/08/18 [PreserVision AREDS-2] [probiotic] See Label Instructions PO .QDAY 11/07/17 05/14/18 aspirin 81 mg tablet,delayed 81 mg PO DAILY tab 11/07/17 06/08/18 release vitamin D3 3,775 unit-folic acid 1 1 cap PO DAILY #0 cap 11/07/17 06/08/18 mg capsule Allergies Allergy/AdvReac Type Severity Reaction Status Date / Time amoxicillin [AMOXICILLIN] Allergy Intermediate HIVES-DELAYED Verified 06/08/18 15:44 RESPONSE Review of Systems <ALEXEY Lorenzana - Last Filed: 06/08/18 21:48> Constitutional Denies chills, Reports fever(s), Denies lethargy and Denies weakness Eyes Denies change in vision, Denies eye discharge, Denies irritation and Denies loss of vision ENT Ears, Nose, Mouth, and Throat: Denies change in voice, Denies neck pain and Denies sore throat Cardiovascular Denies chest pain, Denies irregular heart rhythm, Denies lightheadedness, Denies palpitations, Denies dyspnea, Denies dyspnea on exertion and Denies orthopnea Respiratory Denies cough, Denies dyspnea, Denies dyspnea on exertion and Denies wheezing Gastrointestinal Gastrointestinal: Reports abdominal pain Comments: Right upper quadrant pain Genitourinary Denies hematuria, Denies flank pain, Denies urinary incontinence and Denies urinary urgency Musculoskeletal Denies neck pain Integumentary/Breasts Denies pruritus, Denies erythema, Denies rash and Denies wounds Neurologic Denies confusion, Denies loss of vision and Denies weakness Psychiatric Denies anxiety, Denies confusion, Denies depression, Denies homicidal ideation and Denies suicidal ideation Endocrine Denies palpitations Hematologic/Lymphatic Denies easy bruising Allergic/Immunologic Denies wheezing Exam <ALEXEY Lorenzana - Last Filed: 06/08/18 21:48> Initial Vital Signs Initial Vital Signs: Vital Signs Temperature 100.3 F H 06/08/18 15:39 Pulse Rate 109 H 06/08/18 15:39 Respiratory Rate 14 06/08/18 15:39 Blood Pressure 144/92 H 06/08/18 15:39 Pulse Oximetry 96 06/08/18 15:39 Const General: cooperative and well developed Nutritional Appearance: well nourished Orientation: alert, awake, oriented x3 and not confused HENWY Mouth: oral mucosae normal and mucous membranes abnormal Eyes Conjunctivae: conjunctivae normal Sclera: sclerae normal Pupils: PERRL EOM: EOM intact bilaterally Resp Effort & Inspection: normal respiratory effort, able to speak in complete sentences, no respiratory distress and no use of accessory muscles Auscultation: clear to auscultation bilaterally, no rales, no rhonchi and no wheezes Cardio Rate: regular rate Rhythm: regular rhythm Heart Sounds: no click, no gallops, no murmurs and no rubs Pulses: normal peripheral pulses GI Inspection: non-distended Palpation: soft, no hepatosplenomegaly, No guarding, No pulsatile mass and tender Auscultation: normal bowel sounds Other: Tenderness on palpation to right upper quadrant General: No CVA tenderness Skin General: no rashes or lesions noted, No jaundice and No petechiae Neuro General: alert, oriented x3, gait normal and no focal motor deficits Speech: speech normal <Celeste Yoder DO - Last Filed: 06/09/18 00:37> Initial Vital Signs Initial Vital Signs: Vital Signs Temperature 100.3 F H 06/08/18 15:39 Pulse Rate 109 H 06/08/18 15:39 Respiratory Rate 14 06/08/18 15:39 Blood Pressure 144/92 H 06/08/18 15:39 Pulse Oximetry 96 06/08/18 15:39 Course <ALEXEY Lorenzana - Last Filed: 06/08/18 21:48> Orders Ordered: ED Orders 06/08/18 18:07 Procalcitonin Stat 06/08/18 18:15 Complete Blood Count AUTO DIFF Stat Comprehensive Metabolic Panel Stat Lipase Stat 06/08/18 18:50 CT abdomen pelvis w con Stat 06/08/18 19:07 Lactate (Lactic Acid) Stat 06/08/18 20:03 US abdomen complete Stat 06/08/18 20:11 Influenza A and B by PCR Rapid Stat Sodium Chloride (Normal Saline 0.9%) 1,000 mls @ 125 mls/hr IV CONT KALIE Last Admin: 06/08/18 23:55 Dose: 125 mls/hr Infusion: 06/08/18 23:55 Dose: 0 mls/hr Infusion: 06/08/18 22:15 Dose: 0 mls/hr Admin: 06/08/18 21:03 Dose: 125 mls/hr Discontinued Medications Acetaminophen (Tylenol) 975 mg PO NOW ONE Stop: 06/08/18 22:33 Last Admin: 06/08/18 23:55 Dose: 975 mg Levofloxacin (Levaquin) 750 mg in 150 mls @ 100 mls/hr IV NOW ONE Stop: 06/08/18 21:44 Last Infusion: 06/08/18 23:53 Dose: 100 mls/hr Infusion: 06/08/18 22:13 Dose: 0 mls/hr Admin: 06/08/18 21:04 Dose: 100 mls/hr Vital Signs - 8 hr 06/08/18 19:01 06/08/18 21:24 06/08/18 22:40 Temperature 99.4 F 101.1 F H 98.4 F Pulse Rate 87 89 92 H Respiratory Rate 16 16 18 Blood Pressure 140/80 Blood Pressure [Right Arm] 137/91 H 137/83 Pulse Oximetry 98 95 98 06/09/18 00:05 Temperature 99.4 F Pulse Rate 99 H Respiratory Rate 18 Blood Pressure 136/76 Blood Pressure [Right Arm] Pulse Oximetry 93 <Celeste Yoder DO - Last Filed: 06/09/18 00:37> Orders Ordered: ED Orders 06/08/18 18:07 Procalcitonin Stat 06/08/18 18:15 Complete Blood Count AUTO DIFF Stat Comprehensive Metabolic Panel Stat Lipase Stat 06/08/18 18:50 CT abdomen pelvis w con Stat 06/08/18 19:07 Lactate (Lactic Acid) Stat 06/08/18 20:03 US abdomen complete Stat 06/08/18 20:11 Influenza A and B by PCR Rapid Stat Sodium Chloride (Normal Saline 0.9%) 1,000 mls @ 125 mls/hr IV CONT KALIE Last Admin: 06/08/18 23:55 Dose: 125 mls/hr Infusion: 06/08/18 23:55 Dose: 0 mls/hr Infusion: 06/08/18 22:15 Dose: 0 mls/hr Admin: 06/08/18 21:03 Dose: 125 mls/hr Discontinued Medications Acetaminophen (Tylenol) 975 mg PO NOW ONE Stop: 06/08/18 22:33 Last Admin: 06/08/18 23:55 Dose: 975 mg Levofloxacin (Levaquin) 750 mg in 150 mls @ 100 mls/hr IV NOW ONE Stop: 06/08/18 21:44 Last Infusion: 06/08/18 23:53 Dose: 100 mls/hr Infusion: 06/08/18 22:13 Dose: 0 mls/hr Admin: 06/08/18 21:04 Dose: 100 mls/hr Vital Signs - 8 hr 06/08/18 19:01 06/08/18 21:24 06/08/18 22:40 Temperature 99.4 F 101.1 F H 98.4 F Pulse Rate 87 89 92 H Respiratory Rate 16 16 18 Blood Pressure 140/80 Blood Pressure [Right Arm] 137/91 H 137/83 Pulse Oximetry 98 95 98 06/09/18 00:05 Temperature 99.4 F Pulse Rate 99 H Respiratory Rate 18 Blood Pressure 136/76 Blood Pressure [Right Arm] Pulse Oximetry 93 MDM - Fever <ALEXEY Lorenzana - Last Filed: 06/08/18 21:48> Lab Data Result diagrams: 06/08/18 18:15 06/08/18 18:15 Lab Results 06/08/18 06/08/18 06/08/18 Range/Units 18:07 18:15 18:15 WBC 14.8 H (4.5-11.0) X10^3/uL RBC 5.01 (4.5-5.9) X10^6/uL Hgb 14.2 (13.5-17.5) g/dL Hct 43.3 (41-53) % MCV 86.3 (80-100) fL MCH 28.3 (26-34) PG MCHC 32.8 (30-36) % RDW 14.0 (11.6-14.8) % Plt Count 257 (150-400) X10^3/uL Neut % (Auto) 82.6 H (50-75) % Lymph % (Auto) 8.6 L (25-40) % Holt % (Auto) 8.3 (3-14) % Eos % (Auto) 0.1 L (2-4) % Baso % (Auto) 0.4 (0-2) % Neut # (Auto) 50161 H (2601-3677) /uL Lymph # (Auto) 1300 (9322-6899) /uL Holt # (Auto) 1200 H (0-900) /uL Eos # (Auto) 0 (0-450) /uL Baso # (Auto) 100 (0-100) /uL Sodium 134 L (137-145) mmol/L Potassium 5.1 (3.4-5.1) mmol/L Chloride 100 (98-107) mmol/L Carbon Dioxide 24 (22-32) mmol/L BUN 12 (9-20) mg/dL Creatinine 0.70 (0.66-1.25) mg/dL Estimated GFR > 60.0 (>60) mL/min BUN/Creatinine Ratio 17.1 (6-22) Glucose 109 (80-110) mg/dL Lactate (0.7-2.1) mmol/L Calcium 9.4 (8.4-10.2) mg/dL Total Bilirubin 1.6 H (0.2-1.3) mg/dL AST 91 H (17-59) IU/L ALT 114 H (21-72) IU/L Alkaline Phosphatase 306 H (38-126) U/L Total Protein 8.3 H (6.3-8.2) g/dL Albumin 4.0 (3.5-5.0) g/dL Globulin 4.3 H (1.7-4.1) g/dL Albumin/Globulin Ratio 0.9 L (1.0-2.8) Lipase 44 (23-300) U/L Procalcitonin 0.26 (<0.5) ng/mL Influenza A & B (PCR) (Negative) 06/08/18 06/08/18 Range/Units 19:07 20:11 WBC (4.5-11.0) X10^3/uL RBC (4.5-5.9) X10^6/uL Hgb (13.5-17.5) g/dL Hct (41-53) % MCV (80-100) fL MCH (26-34) PG MCHC (30-36) % RDW (11.6-14.8) % Plt Count (150-400) X10^3/uL Neut % (Auto) (50-75) % Lymph % (Auto) (25-40) % Holt % (Auto) (3-14) % Eos % (Auto) (2-4) % Baso % (Auto) (0-2) % Neut # (Auto) (2026-7505) /uL Lymph # (Auto) (1822-0276) /uL Holt # (Auto) (0-900) /uL Eos # (Auto) (0-450) /uL Baso # (Auto) (0-100) /uL Sodium (137-145) mmol/L Potassium (3.4-5.1) mmol/L Chloride (98-107) mmol/L Carbon Dioxide (22-32) mmol/L BUN (9-20) mg/dL Creatinine (0.66-1.25) mg/dL Estimated GFR (>60) mL/min BUN/Creatinine Ratio (6-22) Glucose (80-110) mg/dL Lactate 1.4 (0.7-2.1) mmol/L Calcium (8.4-10.2) mg/dL Total Bilirubin (0.2-1.3) mg/dL AST (17-59) IU/L ALT (21-72) IU/L Alkaline Phosphatase (38-126) U/L Total Protein (6.3-8.2) g/dL Albumin (3.5-5.0) g/dL Globulin (1.7-4.1) g/dL Albumin/Globulin Ratio (1.0-2.8) Lipase (23-300) U/L Procalcitonin (<0.5) ng/mL Influenza A & B (PCR) Negative (Negative) Imaging Data US - abdomen: Radiologist's impression: [address] [address] Ultrasound Report Signed Patient: Gonzalez Schwartz WMR#: [id number] : 1Acct:[id number] Age/Sex: 68 / MDate of Service: 06/08/18 Loc: ED Accession Number: [id number] Procedure: US abdomen complete Ordering Provider: Adalid Dove PROCEDURE: US ABDOMEN COMPLETE INDICATIONS: RIGHT UPPER QUADRANT PAIN TECHNIQUE: Real-time scanning was performed of the abdominal and retroperitoneal organs, with image documentation. COMPARISON: [facility], CT, CT ABDOMEN PELVIS W CON, 06/08/2018, 19:21. FINDINGS: Liver: Liver is normal in size and homogeneous in echotexture. Gallbladder: Sludge and stones are seen within gallbladder lumen and extending to neck of gallbladder. Diffuse gallbladder wall thickening with irregular contour is seen and measures up to 5.7 mm in thickness. Positive sonographic Torres's sign is also noted. Biliary ducts: Intrahepatic bile ducts are non-dilated. Extrahepatic bile duct caliber measures 4.9 mm. Normal is 6-7 mm or less in diameter, or 10 mm or less post-cholecystectomy. Pancreas: Visualized portions of the pancreas are sonographically normal. Spleen: Spleen is normal in size and homogeneous in echotexture. Kidneys: Kidneys are normal in size and echotexture. Right kidney measures 11.5 cm long; left kidney measures 13.6 cm long. No hydronephrosis or nephrolithiasis. No solid masses. Aorta: Visualized aorta is normal in caliber at less than 3 cm. Iliacs: Proximal common iliac arteries are normal in caliber at less than 2.5 cm. IVC: Intrahepatic inferior vena cava is patent. Miscellaneous: No free abdominal fluid. IMPRESSION: 1. Gallbladder wall thickening with positive sonographic Torres's sign consistent with cholecystitis. Stones and sludge material is seen within gallbladder lumen and extending to gallbladder neck. 2. No biliary ductal dilatation. Dictated by: Ayush Carranza M.D. on 06/08/2018 at 20:56 Approved by: Ayush Carranza M.D. on 06/08/2018 at 20:58 CT scan - abdomen: Radiologist's impression: [address] [address] [address] Scan Report Signed Patient: Gonzalez Schwartz WMR#: [id number] : 1Acct:[id number] Age/Sex: 68 / MDate of Service: 06/08/18 Loc: ED Accession Number: [id number] Procedure: CT abdomen pelvis w con Ordering Provider: Adalid Dove PROCEDURE: CT ABDOMEN PELVIS W CON INDICATIONS: Right upper quadrant pain with fever TECHNIQUE: After the administration of intravenous contrast, 5 mm thick sections acquired from the diaphragm to the symphysis. 5 mm coronal and sagittal reformats were acquired. For radiation dose reduction, the following was used: automated exposure control, adjustment of mA and/or kV according to patient size. COMPARISON: [facility], CT, CT ABDOMEN PELVIS W CON, 04/02/2018, 16:38. FINDINGS: Image quality: Excellent. ABDOMEN: Lung bases: Lung bases are clear. Heart size is normal. Solid organs: Gallbladder is markedly distended with diffuse bladder wall thickening and pericholecystic inflammatory changes. Mild intrahepatic biliary ductal dilatation is noted anomaly involving left hepatic lobe. Borderline distended common bile duct is also seen and measures up to 7 mm in diameter. No calcified gallstones or choledocholithiasis is seen. No biliary stent is visualized on this study.. Pancreas enhances normally. Spleen is normal in size and enhancement. No adrenal nodules. Kidneys demonstrate normal size and enhancement, without hydronephrosis. Peritoneum and bowel: Bowel loops demonstrate normal wall thickness and caliber. No free fluid or air. Appendix is visualized and is within normal limits. Mild descending colon and sigmoid colon diverticulosis is seen, not suggestive of acute diverticulitis. Nodes and vessels: No retroperitoneal or mesenteric adenopathy by size criteria. Aorta and inferior vena cava are normal in size. Miscellaneous: Small periumbilical hernia is seen containing fat only. PELVIS: Genitourinary: Bladder wall thickness is normal. Enlarged prostate gland is seen with significant mass effect a floor of urinary bladder. Miscellaneous: No inguinal hernias or adenopathy. Bones: No suspicious bony lesions. No vertebral body compression fractures. IMPRESSION: 1. Markedly inflamed appearing gallbladder is suggestive of cholecystitis of indeterminate age. Mild intrahepatic biliary ductal dilatation and mild dilatation of common bile duct. No calcified gallstones is seen. No calcified stone is noted within common bile duct. No biliary stent is visualized. 2. No bowel obstruction. Normal appendix. No free fluid or free air. 3. Enlarged prostate gland with significant mass effect a floor of urinary bladder. Dictated by: Ayush Carranza M.D. on 06/08/2018 at 19:56 Approved by: Ayush Carranza M.D. on 06/08/2018 at 20:03 MDM Narrative Medical decision making narrative: CBC shows elevated white count and elevated neutrophils. Otherwise unremarkable. Chem panel Shows mildly elevated AST and ALT of 91 and 114 respectively. Alk-phos was elevated at 306. Total bilirubin was at 1.6. CT of the abdomen was obtained and shows inflammation around the gallbladder indicating cholecystitis. Possibly mild thickened common bile duct of 7 mm. Ultrasound was then ordered and does show findings consistent with cholecystitis however is normal common bile duct. stone and sludge is seen within the gallbladder lumen extending in the gallbladder neck. Biliary stent is not seen on CT which is not new finding and was suspected that the patient may have passed the stent over the past several weeks. Discussed case with surgeon Dr. Alvarez who plans on taking patient to surgery tomorrow for cholecystectomy. [facility] fluids and IV antibiotics started. <Celeste Yoder, DO - Last Filed: 06/09/18 00:37> Lab Data Lab Results 06/08/18 06/08/18 06/08/18 Range/Units 18:07 18:15 18:15 WBC 14.8 H (4.5-11.0) X10^3/uL RBC 5.01 (4.5-5.9) X10^6/uL Hgb 14.2 (13.5-17.5) g/dL Hct 43.3 (41-53) % MCV 86.3 (80-100) fL MCH 28.3 (26-34) PG MCHC 32.8 (30-36) % RDW 14.0 (11.6-14.8) % Plt Count 257 (150-400) X10^3/uL Neut % (Auto) 82.6 H (50-75) % Lymph % (Auto) 8.6 L (25-40) % Holt % (Auto) 8.3 (3-14) % Eos % (Auto) 0.1 L (2-4) % Baso % (Auto) 0.4 (0-2) % Neut # (Auto) 20251 H (9337-5614) /uL Lymph # (Auto) 1300 (7637-1379) /uL Holt # (Auto) 1200 H (0-900) /uL Eos # (Auto) 0 (0-450) /uL Baso # (Auto) 100 (0-100) /uL Sodium 134 L (137-145) mmol/L Potassium 5.1 (3.4-5.1) mmol/L Chloride 100 (98-107) mmol/L Carbon Dioxide 24 (22-32) mmol/L BUN 12 (9-20) mg/dL Creatinine 0.70 (0.66-1.25) mg/dL Estimated GFR > 60.0 (>60) mL/min BUN/Creatinine Ratio 17.1 (6-22) Glucose 109 (80-110) mg/dL Lactate (0.7-2.1) mmol/L Calcium 9.4 (8.4-10.2) mg/dL Total Bilirubin 1.6 H (0.2-1.3) mg/dL AST 91 H (17-59) IU/L ALT 114 H (21-72) IU/L Alkaline Phosphatase 306 H (38-126) U/L Total Protein 8.3 H (6.3-8.2) g/dL Albumin 4.0 (3.5-5.0) g/dL Globulin 4.3 H (1.7-4.1) g/dL Albumin/Globulin Ratio 0.9 L (1.0-2.8) Lipase 44 (23-300) U/L Procalcitonin 0.26 (<0.5) ng/mL Influenza A & B (PCR) (Negative) 06/08/18 06/08/18 Range/Units 19:07 20:11 WBC (4.5-11.0) X10^3/uL RBC (4.5-5.9) X10^6/uL Hgb (13.5-17.5) g/dL Hct (41-53) % MCV (80-100) fL MCH (26-34) PG MCHC (30-36) % RDW (11.6-14.8) % Plt Count (150-400) X10^3/uL Neut % (Auto) (50-75) % Lymph % (Auto) (25-40) % Holt % (Auto) (3-14) % Eos % (Auto) (2-4) % Baso % (Auto) (0-2) % Neut # (Auto) (0600-7035) /uL Lymph # (Auto) (7937-2778) /uL Holt # (Auto) (0-900) /uL Eos # (Auto) (0-450) /uL Baso # (Auto) (0-100) /uL Sodium (137-145) mmol/L Potassium (3.4-5.1) mmol/L Chloride (98-107) mmol/L Carbon Dioxide (22-32) mmol/L BUN (9-20) mg/dL Creatinine (0.66-1.25) mg/dL Estimated GFR (>60) mL/min BUN/Creatinine Ratio (6-22) Glucose (80-110) mg/dL Lactate 1.4 (0.7-2.1) mmol/L Calcium (8.4-10.2) mg/dL Total Bilirubin (0.2-1.3) mg/dL AST (17-59) IU/L ALT (21-72) IU/L Alkaline Phosphatase (38-126) U/L Total Protein (6.3-8.2) g/dL Albumin (3.5-5.0) g/dL Globulin (1.7-4.1) g/dL Albumin/Globulin Ratio (1.0-2.8) Lipase (23-300) U/L Procalcitonin (<0.5) ng/mL Influenza A & B (PCR) Negative (Negative) Discharge Plan Departure Patient Disposition: Admitted As Inpatient Clinical Impression: Acute cholecystitis Discharge Date/Time: 06/08/18 22:15 Interventions: ED Discharge Assessment Last Done: 06/08/18 22:13 Admit Date/Time: 06/08/18 21:36 Admit Provider: Chip Leon <Celeste Yoder DO - Last Filed: 06/09/18 00:37> Cosign ED Attending Coschepeature Attestation: I was immediately available in the department for consultation. Documentation has been reviewed. I agree with assessment and plan.
[2018-06-08 22:40] VITALS: BP 140/80; PULSE 92; RESP 18; TEMP 36.9; O2SAT 98
[2018-06-08 22:50] VITALS: BMI 41.3
[2018-06-08] MEDS: ACETAMINOPHEN 325 MG TABLET 975 MG PO (23:55)
[2018-06-09] VITALS (16 sets, daily range): BP systolic 122–153; BP diastolic 41–94; PULSE 72–114; RESP 12–24; TEMP 36.3–37.4; O2SAT 90–95; BMI 40.4
--- NOTE | 2018-06-09 | PATH_ITS ---
[facility] Accession Number: [id number] . 01 Material submitted: . PART A: GALLBLADDER MASS PART B: LEFT HEPATIC LOBE MASS . 02 Diagnosis: A. Gallbladder Mass: Portions of fibroadipose and fibroconnective tissue with reactive features and organizing fat necrosis. Negative for malignancy. . B. Left Hepatic Lobe Mass: Hemangioma. Negative for malignancy. MRV/06/18/2018 . 02 Comment: This case was reviewed by my pathologist colleagues Tuyet Isaac, Ruth Ann, and Delroy, who concur with this interpretation. . Dr. Lo discussed results with Dr. Avlarez at 11:55 a.m. on 06/17/18. . 02 Electronically signed: . Megha Catherine MD, Pathologist NPI- [id number] . 01 Gross description: . (A) Received in formalin, labeled gallbladder mass, are multiple pieces of mills-yellow and red-brown rubbery tissue (2.1 x 0.7 x 0.3 cm in aggregate). Entirely submitted in cassette A1. (B) Received in formalin, labeled left hepatic lobe mass, is a piece of mills-white rubbery semi-translucent tissue (1.0 x 0.6 x 0.5 cm). The resection margin is inked black. Trisected and entirely submitted in cassette B1. ([id number]) /[facility] . 02 Pathologist provided ICD-10: Z00.01 . 02 CPT . 914592, [id number] Performed at: [address] [facility], [place], [place] [id number] MD Chang Niño MD Phone: [phone] Performed at: 02 [facility] [address] [place] [id number] MD Silvana Lo MD Phone: [phone]
--- NOTE | 2018-06-09 03:52 | P.HP_ITS ---
History of Present Illness Date Patient Seen: 06/09/18 Time Patient Seen: 00:10 Chief complaint: states he has a fever of 101.1 Narrative: This is a 60-year-old male patient with a history of cholelithiasis status post ERCP, duodenal mass, and osteoarthritis that presents to the ER today for right upper quadrant pain and elevated temperature for several days. The patient was initially seen at [facility] ER and subsequently transferred to [facility] related to elevated liver function tests acute cholecystitis and cholelithiasis for ERCP. At the time the patient reports that the mass is also found in his duodenum for which he is to have a scope in the near future. The patient reports that his symptoms are similar to what he a current in April. He denies trauma or injury and reports no nausea vomiting or changes in bowel habits. He has associated history of osteoarthritis, difficulty hearing and hyperlipidemia not being treated. He also has a history of tracheostomy he was 6 years old for severe strep throat. Upon arrival in the ER the patient had low-grade temperature of 100.3?, tachycardic at 1:09 a.m., hypertensive 144/92 with a respiratory rate of 14 and oxygen saturation 96%. The patient was worked up with an abdominal ultrasound which found sludge and stones extending from the gallbladder to the neck, gallbladder wall thickening with a positive Torres sign. This was followed by abdominal CT which identified kalyani cholecystic inflammatory changes, hepatic biliary duct dilation and also describes a left hepatic lobe ?and nominally?. Common bile duct is found to be free of stones measuring 7 mm in diameter. Incidental finding of mild descending sigmoid diverticulosis and enlarged prostate and encroaching on the bladder. On laboratory analysis he has an elevated white count of 14.8 a procalcitonin of 0.26 with a lactate 1.4. His BMP is unremarkable and he has a bilirubin of 1.6, AST of 91, ALT of 114 and alkaline phosphatase of 306 and a negative lipase of 44. Dr. Alvarez general surgery was contacted and agrees the patient needs to be admitted for acute cholecystitis with plan to take him to the OR tomorrow. He received a dose of Levaquin 750 mg in the ER. Patient History Medical History Shoulder pain (Chronic ~2013) Dupuytrens contracture (Chronic 2005) Osteoarthritis (Chronic 2009) Psoriasis (Chronic 2014) Allergic rhinitis (Chronic 1967) Hearing loss (Chronic 2010) Tinnitus of both ears (Chronic Unknown) Colon polyps (Resolved 1997) Hyperlipemia (Chronic 1989) Chickenpox (Resolved 1957) Fractures (Resolved 1963) Surgical History S/P total knee arthroplasty (Resolved 01/2017) Hx of tracheostomy (Resolved 1956) Status post knee surgery (Chronic) History of knee replacement (Chronic) Family History Brother Age: 73 Prostate cancer Heart disease Hyperlipidemia Father Heart disease Hyperlipidemia Sister Age: 60 Thyroid disorder Mother Cancer Social History household members: spouse Smoking Status: Former smoker Tobacco: How many years used: 2 second hand exposure: No alcohol intake: current substance use type: marijuana (occasionally) Family & Social History Family History Brother Age: 73 Prostate cancer Heart disease Hyperlipidemia Father Heart disease Hyperlipidemia Sister Age: 60 Thyroid disorder Mother Cancer Social History: household members spouse Safety & Behavioral: Feels Safe in Current Yes Environment Been Physically Hurt or No Threatened By a Person Suicidal Ideation Description None Tobacco & Substance use: Smoking Status Former smoker alcohol intake current alcohol intake frequency 0-2 drinks per day Substance Use Type marijuana Comment: The patient is and lives in a single family sitting level home. His parents are both his mother passing away from pancreatic and colon cancer and his father of complications of rheumatic heart disease. He has brother with prostate cancer and an aunt with colon mass. Occupation: Retired previous decision support for medical services Smoking: Patient smoked for approximately 2 years when he was a teenager Alcohol consumption 2-3 drinks 3-4 times per week Substance use patient admits to using marijuana for pain management following knee surgery last use approximately 1 month ago Advanced directives: Patient wishes to be full code and designates his Apoorva to be surrogate decision maker. Meds Home Medications Medication Instructions Recorded Confirmed Type vit C,H-Nf-vjkjh-lutein-zeaxan 1 tab PO QDAY #0 01/09/17 06/08/18 History [PreserVision AREDS-2] aspirin 81 mg tablet,delayed 81 mg PO DAILY tab 11/07/17 06/08/18 History release Allergies Allergy/AdvReac Type Severity Reaction Status Date / Time amoxicillin [AMOXICILLIN] Allergy Intermediate HIVES-DELAYED Verified 06/08/18 15:44 RESPONSE Review of Systems Review of Systems Constitutional: Positive for fevers, Denies sweats, fatigue, fair appetite with stable weight Eyes: Denies visual changes, denies floaters, diplopia ENT: Denies headaches, hearing changes, ear pain, no nasal congestion, rhinorrhea, no dysphagia, sore throat or dentalgia, no neck stiffness or pain Respiratory: Denies SOB, cough, exertional dyspnea, wheezing Cardiovascular: Denies chest pain, palpitations, orthostatic dizziness, syncope , edema Gastrointestinal: Positive for right upper quadrant pain, gallbladder stones duodenal mass, Denies heartburn no reflux or bloating, constipation or diarrhea , denies blood in stool. Genitourinary: Positive for nocturia 2 times nightly, reports incomplete bladder emptying denies discharge, no complains of frequency, burning or urgency , hematuria on voiding Musculoskeletal: Positive for osteoarthritis, bilateral knee replacements, denies falls, weakness, limited movement, cramps, edema, myalgia or joint swelling. Integumentary: denies skin lesions, masses, rashes, hives, itching or hair loss Neurological: denies dizziness, confusion, numbness or tingling, speech difficulties or seizures Psychiatric: denies disturbances in thought, attentions or mood, denies substance abuse Endocrine: Positive for hyperlipidemia denies goiter, lethargy, abnormal sweating, and heat/cold intolerance. Heme/lymph: Denies lymphadenopathy, abnormal bleeding or bruising Exam Vital Signs (past 8 hours): - 06/08/18 21:24 06/08/18 22:40 06/09/18 00:05 Temperature 101.1 F H 98.4 F 99.4 F Pulse Rate 89 92 H 99 H Respiratory Rate 16 18 18 Blood Pressure 140/80 136/76 Blood Pressure [Right Arm] 137/83 Pulse Oximetry 95 98 93 06/09/18 02:46 Temperature 98.4 F Pulse Rate Respiratory Rate Blood Pressure Blood Pressure [Right Arm] Pulse Oximetry Oxygen Delivery Method Room Air Oxygen Flow Rate 0 Narrative Exam Narrative: General: Well developed, well nourished, in no acute distress. Skin: Warm, dry, pink, no rashes, no visible lesions HEENT: Normocephalic, PERRLA, EOMs intact without nystagmus, conjunctiva moist, sclera is anicteric, no ear pain, hearing grossly normal, no sinus tenderness to percussion, no rhinorrhea, oropharynx is moist and pink without lesions or exudate, uvula midline, posterior pharynx without inflammation, no cervical lymphadenopathy Neck: Supple, no masses, no thyromegaly or nodules, trachea midline, no carotid bruits or JVD, no supraclavicular lymphadenopathy Cardiac: Regular rate and rhythm, S1-S2, no murmur, no gallops or rubs, 2+ radial pulse, 1+ dorsalis pedis pulse, capillary refill is brisk, no edema Chest: Symmetrical movement, breathing non labored, no cough present, BS equal bilateral without coarseness, crackles or wheezes Abdomen: Soft, tenderness to palpation right upper quadrant with guarding, positive Torres sign, no peritoneal signs, no masses or organomegaly, no flank or suprapubic pain, BS normal. Back: Normal curvature, no tenderness to palpation, no CVA tenderness on percussion Extremities: Decreased range of motion bilateral knees, well-healed surgical scars bilateral knees, no synovial effusions or deformities, strength 5/5 and symmetrical, stable gait Neuro: AAOx4, cranial nerves II-XII grossly intact, distal sensation intact to light touch, no paresthesias Psych: pleasant, thought coherent, stable mood and congruent affect Objective Labs Result Diagrams: 06/08/18 18:15 06/08/18 18:15 Labs: Laboratory Results - last 24 hr 06/08/18 06/08/18 06/08/18 18:07 18:15 18:15 WBC 14.8 H RBC 5.01 Hgb 14.2 Hct 43.3 MCV 86.3 MCH 28.3 MCHC 32.8 RDW 14.0 Plt Count 257 Neut % (Auto) 82.6 H Lymph % (Auto) 8.6 L [place] % (Auto) 8.3 Eos % (Auto) 0.1 L Baso % (Auto) 0.4 Neut # (Auto) 62599 H Lymph # (Auto) 1300 [place] # (Auto) 1200 H Eos # (Auto) 0 Baso # (Auto) 100 Sodium 134 L Potassium 5.1 Chloride 100 Carbon Dioxide 24 BUN 12 Creatinine 0.70 Estimated GFR > 60.0 BUN/Creatinine Ratio 17.1 Glucose 109 Lactate Calcium 9.4 Total Bilirubin 1.6 H AST 91 H ALT 114 H Alkaline Phosphatase 306 H Total Protein 8.3 H Albumin 4.0 Globulin 4.3 H Albumin/Globulin Ratio 0.9 L Lipase 44 Procalcitonin 0.26 Influenza A & B (PCR) 06/08/18 06/08/18 19:07 20:11 WBC RBC Hgb Hct MCV MCH MCHC RDW Plt Count Neut % (Auto) Lymph % (Auto) [place] % (Auto) Eos % (Auto) Baso % (Auto) Neut # (Auto) Lymph # (Auto) [place] # (Auto) Eos # (Auto) Baso # (Auto) Sodium Potassium Chloride Carbon Dioxide BUN Creatinine Estimated GFR BUN/Creatinine Ratio Glucose Lactate 1.4 Calcium Total Bilirubin AST ALT Alkaline Phosphatase Total Protein Albumin Globulin Albumin/Globulin Ratio Lipase Procalcitonin Influenza A & B (PCR) Negative Assessment & Plan Plan: Assessment/Plan Narrative: This is a 68-year-old male patient who is admitted for acute cholecystitis plans doctor upon to take the patient to the OR tomorrow. 1. Cholecystitis, cholelithiasis, acute -patient has confirmed cholecystitis on ultrasound and CT imaging -he has elevated bilirubin at 1.6 markedly reduced per patient report from his previous admission, elevated transaminases, normal lipase -the ER called Dr. Alvarez, general surgery was except patient and will plan to take him to the OR for cholecystectomy. -patient has already received 750 mg of Levaquin IV, will determine the need for ongoing antibiotics postoperatively -patient has undergone multiple major surgical procedures without anesthetic complications 2. Osteoarthritis, chronic, stable -patient is status total knee replacement right, partial knee replacement left -patient reports no new limitations in activities 3. Hyperlipidemia, chronic, presumed stable -patient transiently statin therapy discontinued due to intolerance and myopathy. -follow-up is indicated outpatient. The patient is admitted to the hospital due acute medical condition requiring close monitoring and prevention of complications. The patient is admitted observation with length of stay expected to be less than 2 midnights. Time Spent With Patient Time with patient: 15-24 minutes Scores GCS Stacey coma scale eye opening: Spontaneous Lovell coma scale verbal response: Orientated Lovell coma scale motor response: Obey commands Lovell coma scale total score: 15
--- NOTE | 2018-06-09 05:00 | PC.NURSE ---
Patient admitted to unit as AxOx3, VSS (temp 99.4F) tolerating room air. Minimal complaints of RUQ pain. States mostly hurts when taking in a deep breath. NS@125mL/hr running. Patient's IV infiltrated from the Levaquin. New IV started on opposite arm at a slower rate to finish the bag and pt's IV site developed a red streak again, he reports no pain or itchiness. The red gail went away after the ABX finished. I reported this to Provider Chip Leon as well. No nausea. EKG to be done this AM. Kept NPO throughout night. UA sent. Independent of ADLs
[2018-06-09 06:06] LABS: Add Manual Diff / Slide Review NO; Basophils Absolute Auto 0 /uL (0-100); Basophils Percent Auto 0.2 % (0-2); Eosinophils Absolute Auto 0 /uL (0-450); Eosinophils Percent Auto 0.2 % (2-4); Hematocrit 43.1 % (41-53); Hemoglobin 14.5 g/dL (13.5-17.5); Lymphocytes Absolute Auto 1100 /uL (1100-4500); Lymphocytes Percent Auto 9.5 % (25-40); Mean Corpuscular HGB Conc 33.6 % (30-36); Mean Corpuscular Hemoglobin 28.9 PG (26-34); Mean Corpuscular Volume 85.8 fL (80-100); Monocytes Absolute Auto 1100 /uL (0-900); Monocytes Percent Auto 10.2 % (3-14); Neutrophils Absolute Auto 8900 /uL (1500-7000); Neutrophils Percent Auto 79.9 % (50-75); Platelet Count 240 X10^3/uL (150-400); Red Blood Cell Count 5.02 X10^6/uL (4.5-5.9); Red Cell Distribution Width 14.1 % (11.6-14.8); White Blood Cell Count 11.2 X10^3/uL (4.5-11.0)
[2018-06-09 06:11] LABS: Blood Urea Nitrogen 12 mg/dL (9-20); Calcium 9.3 mg/dL (8.4-10.2); Carbon Dioxide 28 mmol/L (22-32); Chloride 99 mmol/L (98-107); Estimated Glomerular Filt Rate > 60.0 mL/min (>60); Glucose 106 mg/dL (80-110); HEMOLYSIS < 15 (0-50); Potassium 4.2 mmol/L (3.4-5.1); Sodium 137 mmol/L (137-145)
[2018-06-09] MEDS: ACETAMINOPHEN 325 MG TABLET 975 MG PO (06:41)
--- NOTE | 2018-06-09 08:17 | PM.CN ---
History of Present Illness Date Patient Seen: 06/09/18 Time Patient Seen: 08:17 Chief complaint: states he has a fever of 101.1 Reason for consult: RUQ pain Requesting provider: Sylvie Villalobos Narrative: 68-year-old male who presented the emergency department last night with a 3 day history of progressive epigastric and right upper quadrant abdominal pain. He had similar episodes in approximately March 2018 which time he was diagnosed with choledocholithiasis necessitating transfer for ERCP which was performed successfully at that time. A stent was left in place in the common bile duct. I do not have records from that hospitalization or procedure, but the patient informs me that the stent was later exchanged but then subsequently dislodged and was spontaneously passed per rectum. At the time of the ERCP he was also found to have a duodenal ?mass? which upon further evaluation was deemed amenable to endoscopic resection. However, the patient has not had this procedure performed. In fact, he was finally able to establish follow-up care at [facility] last week with the above treatment plan rendered at that time. Shortly thereafter as when he became acutely ill with abdominal pain that would persist despite [id number] Tylenol or changes in body position. He was unable to find a comfortable position in bed. He had some nausea but no vomiting. He did note fever but no chills. He denies any jaundice, dark brown urine, or acholic stools as he experienced in March 2018. Currently his chief complaint is right upper quadrant abdominal pain although this has improved since admission with appropriate analgesia. [facility] Medical History Shoulder pain (Chronic ~2013) Dupuytrens contracture (Chronic 2005) Osteoarthritis (Chronic 2009) Psoriasis (Chronic 2014) Allergic rhinitis (Chronic 1967) Hearing loss (Chronic 2010) Tinnitus of both ears (Chronic Unknown) Colon polyps (Resolved 1997) Hyperlipemia (Chronic 1989) Chickenpox (Resolved 1957) Fractures (Resolved 1963) Surgical History S/P total knee arthroplasty (Resolved 01/2017) Hx of tracheostomy (Resolved 1956) Status post knee surgery (Chronic) History of knee replacement (Chronic) Family History Brother Age: 73 Prostate cancer Heart disease Hyperlipidemia Father Heart disease Hyperlipidemia Sister Age: 60 Thyroid disorder Mother Cancer Social History household members: spouse Smoking Status: Former smoker Tobacco: How many years used: 2 second hand exposure: No alcohol intake: current substance use type: marijuana (occasionally) Family History Brother Age: 73 Prostate cancer Heart disease Hyperlipidemia Father Heart disease Hyperlipidemia Sister Age: 60 Thyroid disorder Mother Cancer Social History household members: spouse Smoking Status: Former smoker Tobacco: How many years used: 2 second hand exposure: No alcohol intake: current substance use type: marijuana (occasionally) Meds Home Medications Medication Instructions Recorded Confirmed Type vit C,W-Wa-oudpy-lutein-zeaxan 1 tab PO QDAY #0 01/09/17 06/08/18 History [PreserVision AREDS-2] aspirin 81 mg tablet,delayed 81 mg PO DAILY tab 11/07/17 06/08/18 History release Allergies Allergy/AdvReac Type Severity Reaction Status Date / Time amoxicillin [AMOXICILLIN] Allergy Intermediate HIVES-DELAYED Verified 06/08/18 15:44 RESPONSE Review of Systems Review of Systems All systems reviewed & are unremarkable except as noted in HPI and below Exam Vital Signs (past 8 hours): - 06/09/18 02:46 06/09/18 05:34 06/09/18 07:48 Temperature 98.4 F 98.4 F 98.5 F Pulse Rate 76 86 Respiratory Rate 16 18 Blood Pressure 130/73 122/41 L Pulse Oximetry 95 94 Oxygen Delivery Method Room Air Oxygen Flow Rate 0 Narrative Exam Narrative: Well-nourished well-developed obese male lying in bed in no acute distress. Alert oriented x3. He is seen with the attending nursing staff today. Sclera nonicteric Neck is supple Chest clear to auscultation bilaterally. No crackles or wheezes Abdomen is obese but soft and nondistended. He is focally tender in the right upper quadrant region with a marginally positive Torres sign this morning. No masses. No hepatomegaly. No ascites. Extremities show no clubbing or cyanosis Objective Labs Result Diagrams: 06/09/18 05:34 06/09/18 05:34 Labs: Laboratory Results - last 24 hr 06/08/18 06/08/18 06/08/18 18:07 18:15 18:15 WBC 14.8 H RBC 5.01 Hgb 14.2 Hct 43.3 MCV 86.3 MCH 28.3 MCHC 32.8 RDW 14.0 Plt Count 257 Neut % (Auto) 82.6 H Lymph % (Auto) 8.[address] [place] % (Auto) 8.3 Eos % (Auto) 0.1 L Baso % (Auto) 0.4 Neut # (Auto) 49642 H Lymph # (Auto) [address] [place] # (Auto) 1200 H Eos # (Auto) 0 Baso # (Auto) 100 Sodium 134 L Potassium 5.1 Chloride 100 Carbon Dioxide 24 BUN 12 Creatinine 0.70 Estimated GFR > 60.0 BUN/Creatinine Ratio 17.1 Glucose 109 Lactate Calcium 9.4 Total Bilirubin 1.6 H AST 91 H ALT 114 H Alkaline Phosphatase 306 H Total Protein 8.3 H Albumin 4.0 Globulin 4.3 H Albumin/Globulin Ratio 0.9 L Lipase 44 Procalcitonin 0.26 Influenza A & B (PCR) 06/08/18 06/08/18 06/09/18 19:07 20:11 05:34 WBC 11.2 H RBC 5.02 Hgb 14.5 Hct 43.1 MCV 85.8 MCH 28.9 MCHC 33.6 RDW 14.1 Plt Count 240 Neut % (Auto) 79.9 H Lymph % (Auto) 9.[address] [place] % (Auto) 10.2 Eos % (Auto) 0.2 L Baso % (Auto) 0.2 Neut # (Auto) 8900 H Lymph # (Auto) [address] [place] # (Auto) 1100 H Eos # (Auto) 0 Baso # (Auto) 0 Sodium Potassium Chloride Carbon Dioxide BUN Creatinine Estimated GFR BUN/Creatinine Ratio Glucose Lactate 1.4 Calcium Total Bilirubin AST ALT Alkaline Phosphatase Total Protein Albumin Globulin Albumin/Globulin Ratio Lipase Procalcitonin Influenza A & B (PCR) Negative 06/09/18 05:34 WBC RBC Hgb Hct MCV MCH MCHC RDW Plt Count Neut % (Auto) Lymph % (Auto) [place] % (Auto) Eos % (Auto) Baso % (Auto) Neut # (Auto) Lymph # (Auto) [place] # (Auto) Eos # (Auto) Baso # (Auto) Sodium 137 Potassium 4.2 Chloride 99 Carbon Dioxide 28 BUN 12 Creatinine 0.60 L Estimated GFR > 60.0 BUN/Creatinine Ratio 20.0 Glucose 106 Lactate Calcium 9.3 Total Bilirubin AST ALT Alkaline Phosphatase Total Protein Albumin Globulin Albumin/Globulin Ratio Lipase Procalcitonin Influenza A & B (PCR) I have personally reviewed his ultrasound of the abdomen as well as CT scan of the abdomen obtained per the emergency room staff last evening. The common bile duct measures at most 7 mm although appeared to be of normal size on the ultrasound. However, the gallbladder is significantly thickened with pericholecystic fluid. Gallbladder lumen is packed of sludge and stones. There is market inflammation around the entire gallbladder involving the duodenum as well. There is no stent in the common bile duct. No obvious calcified stone is seen within the duct as well. Pancreas appears normal. Duodenal wall appears thickened but I do not appreciate the mass that was referenced per the patient. No free air. Assessment & Plan Plan: Assessment/Plan Narrative: 68-year-old obese male with acute cholecystitis secondary to cholelithiasis. Currently I do not appreciate residual choledocholithiasis but this is a small possibility. Bilirubin is 1.6 which is marginally elevated but not entirely abnormal. At this time I would recommend urgent laparoscopic cholecystectomy with intraoperative cholangiography. I discussed the technical details with the patient at length. Anticipated healing and recovery times were also reviewed. He understands that he would still require endoscopic follow-up with his physicians at [facility] to address the duodenal lesion. In addition, I informed him that if I determined the presence of choledocholithiasis at surgery today, assuming that intraoperative cholangiography is even technically possible if the cystic duct is not occluded, then I would plan to have him follow up with the Gastroenterology Service in [place] again for ERCP. I would defer to their expertise regarding concurrent ERCP and endoscopic resection of the duodenal lesion. I also explained that there is a distinct possibility that he will require conversion to open procedure given the significant amount of inflammation and probable chronic fibrosis from his previous episodes of cholecystitis and choledocholithiasis. Risks, benefits, alternatives were explained. I do not believe that antibiotics alone will result in complete resolution of the acute cholecystitis and that he is likely to require operation in any event. Risks including but not limited to anesthesia, bleeding, infection, pain, abscess, scars, need for drains, liver injury, bile duct injury, bile duct leak, duodenal injury, gastric injury, small-bowel injury, colon injury, major vascular injury, need for further procedures as above, need for major abdominal surgery including liver surgery, abscess, and prolonged recovery were discussed in detail. All questions were answered to his satisfaction, and he voiced understanding. Consent was placed on the chart. We will proceed later today as above. Orders were written.
--- NOTE | 2018-06-09 08:26 | P.CONS_ITS ---
History of Present Illness Date Patient Seen: 06/09/18 Time Patient Seen: 08:17 Chief complaint: states he has a fever of 101.1 Reason for consult: RUQ pain Requesting provider: Sylvie Villalobos Narrative: 68-year-old male who presented the emergency department last night with a 3 day history of progressive epigastric and right upper quadrant abdominal pain. He had similar episodes in approximately March 2018 which time he was diagnosed with choledocholithiasis necessitating transfer for ERCP which was performed successfully at that time. A stent was left in place in the common bile duct. I do not have records from that hospitalization or procedure, but the patient informs me that the stent was later exchanged but then subsequently dislodged and was spontaneously passed per rectum. At the time of the ERCP he was also found to have a duodenal ?mass? which upon further evaluation was deemed amenable to endoscopic resection. However, the patient has not had this procedure performed. In fact, he was finally able to establish follow-up care at [facility] last week with the above treatment plan rendered at that time. Shortly thereafter as when he became acutely ill with abdominal pain that would persist despite [id number] Tylenol or changes in body position. He was unable to find a comfortable position in bed. He had some nausea but no vomiting. He did note fever but no chills. He denies any jaundice, dark brown urine, or acholic stools as he experienced in March 2018. Currently his chief complaint is right upper quadrant abdominal pain although this has improved since admission with appropriate analgesia. [facility] Medical History Shoulder pain (Chronic ~2013) Dupuytrens contracture (Chronic 2005) Osteoarthritis (Chronic 2009) Psoriasis (Chronic 2014) Allergic rhinitis (Chronic 1967) Hearing loss (Chronic 2010) Tinnitus of both ears (Chronic Unknown) Colon polyps (Resolved 1997) Hyperlipemia (Chronic 1989) Chickenpox (Resolved 1957) Fractures (Resolved 1963) Surgical History S/P total knee arthroplasty (Resolved 01/2017) Hx of tracheostomy (Resolved 1956) Status post knee surgery (Chronic) History of knee replacement (Chronic) Family History Brother Age: 73 Prostate cancer Heart disease Hyperlipidemia Father Heart disease Hyperlipidemia Sister Age: 60 Thyroid disorder Mother Cancer Social History household members: spouse Smoking Status: Former smoker Tobacco: How many years used: 2 second hand exposure: No alcohol intake: current substance use type: marijuana (occasionally) Family History Brother Age: 73 Prostate cancer Heart disease Hyperlipidemia Father Heart disease Hyperlipidemia Sister Age: 60 Thyroid disorder Mother Cancer Social History household members: spouse Smoking Status: Former smoker Tobacco: How many years used: 2 second hand exposure: No alcohol intake: current substance use type: marijuana (occasionally) Meds Home Medications Medication Instructions Recorded Confirmed Type vit C,R-Ss-zkpul-lutein-zeaxan 1 tab PO QDAY #0 01/09/17 06/08/18 History [PreserVision AREDS-2] aspirin 81 mg tablet,delayed 81 mg PO DAILY tab 11/07/17 06/08/18 History release Allergies Allergy/AdvReac Type Severity Reaction Status Date / Time amoxicillin [AMOXICILLIN] Allergy Intermediate HIVES-DELAYED Verified 06/08/18 15:44 RESPONSE Review of Systems Review of Systems All systems reviewed & are unremarkable except as noted in HPI and below Exam Vital Signs (past 8 hours): - 06/09/18 02:46 06/09/18 05:34 06/09/18 07:48 Temperature 98.4 F 98.4 F 98.5 F Pulse Rate 76 86 Respiratory Rate 16 18 Blood Pressure 130/73 122/41 L Pulse Oximetry 95 94 Oxygen Delivery Method Room Air Oxygen Flow Rate 0 Narrative Exam Narrative: Well-nourished well-developed obese male lying in bed in no acute distress. Alert oriented x3. He is seen with the attending nursing staff today. Sclera nonicteric Neck is supple Chest clear to auscultation bilaterally. No crackles or wheezes Abdomen is obese but soft and nondistended. He is focally tender in the right upper quadrant region with a marginally positive Torres sign this morning. No masses. No hepatomegaly. No ascites. Extremities show no clubbing or cyanosis Objective Labs Result Diagrams: 06/09/18 05:34 06/09/18 05:34 Labs: Laboratory Results - last 24 hr 06/08/18 06/08/18 06/08/18 18:07 18:15 18:15 WBC 14.8 H RBC 5.01 Hgb 14.2 Hct 43.3 MCV 86.3 MCH 28.3 MCHC 32.8 RDW 14.0 Plt Count 257 Neut % (Auto) 82.6 H Lymph % (Auto) 8.6 L [place] % (Auto) 8.3 Eos % (Auto) 0.1 L Baso % (Auto) 0.4 Neut # (Auto) 59222 H Lymph # (Auto) 1300 [place] # (Auto) 1200 H Eos # (Auto) 0 Baso # (Auto) 100 Sodium 134 L Potassium 5.1 Chloride 100 Carbon Dioxide 24 BUN 12 Creatinine 0.70 Estimated GFR > 60.0 BUN/Creatinine Ratio 17.1 Glucose 109 Lactate Calcium 9.4 Total Bilirubin 1.6 H AST 91 H ALT 114 H Alkaline Phosphatase 306 H Total Protein 8.3 H Albumin 4.0 Globulin 4.3 H Albumin/Globulin Ratio 0.9 L Lipase 44 Procalcitonin 0.26 Influenza A & B (PCR) 06/08/18 06/08/18 06/09/18 19:07 20:11 05:34 WBC 11.2 H RBC 5.02 Hgb 14.5 Hct 43.1 MCV 85.8 MCH 28.9 MCHC 33.6 RDW 14.1 Plt Count 240 Neut % (Auto) 79.9 H Lymph % (Auto) 9.5 L [place] % (Auto) 10.2 Eos % (Auto) 0.2 L Baso % (Auto) 0.2 Neut # (Auto) 8900 H Lymph # (Auto) 1100 [place] # (Auto) 1100 H Eos # (Auto) 0 Baso # (Auto) 0 Sodium Potassium Chloride Carbon Dioxide BUN Creatinine Estimated GFR BUN/Creatinine Ratio Glucose Lactate 1.4 Calcium Total Bilirubin AST ALT Alkaline Phosphatase Total Protein Albumin Globulin Albumin/Globulin Ratio Lipase Procalcitonin Influenza A & B (PCR) Negative 06/09/18 05:34 WBC RBC Hgb Hct MCV MCH MCHC RDW Plt Count Neut % (Auto) Lymph % (Auto) [place] % (Auto) Eos % (Auto) Baso % (Auto) Neut # (Auto) Lymph # (Auto) [place] # (Auto) Eos # (Auto) Baso # (Auto) Sodium 137 Potassium 4.2 Chloride 99 Carbon Dioxide 28 BUN 12 Creatinine 0.60 L Estimated GFR > 60.0 BUN/Creatinine Ratio 20.0 Glucose 106 Lactate Calcium 9.3 Total Bilirubin AST ALT Alkaline Phosphatase Total Protein Albumin Globulin Albumin/Globulin Ratio Lipase Procalcitonin Influenza A & B (PCR) I have personally reviewed his ultrasound of the abdomen as well as CT scan of the abdomen obtained per the emergency room staff last evening. The common bile duct measures at most 7 mm although appeared to be of normal size on the ultrasound. However, the gallbladder is significantly thickened with pericholecystic fluid. Gallbladder lumen is packed of sludge and stones. There is market inflammation around the entire gallbladder involving the duodenum as well. There is no stent in the common bile duct. No obvious calcified stone is seen within the duct as well. Pancreas appears normal. Duodenal wall appears thickened but I do not appreciate the mass that was referenced per the patient. No free air. Assessment & Plan Plan: Assessment/Plan Narrative: 68-year-old obese male with acute cholecystitis secondary to cholelithiasis. Currently I do not appreciate residual choledocholithiasis but this is a small possibility. Bilirubin is 1.6 which is marginally elevated but not entirely abnormal. At this time I would recommend urgent laparoscopic cholecystectomy with intraoperative cholangiography. I discussed the technical details with the patient at length. Anticipated healing and recovery times were also reviewed. He understands that he would still require endoscopic follow-up with his physicians at [facility] to address the duodenal lesion. In addition, I informed him that if I determined the presence of choledocholithiasis at surgery today, assuming that intraoperative cholangiography is even technically possible if the cystic duct is not occluded , then I would plan to have him follow up with the [facility] in [place] again for ERCP. I would defer to their expertise regarding concurrent ERCP and endoscopic resection of the duodenal lesion. I also explained that there is a distinct possibility that he will require conversion to open procedure given the significant amount of inflammation and probable chronic fibrosis from his previous episodes of cholecystitis and choledocholithiasis. Risks, benefits, alternatives were explained. I do not believe that antibiotics alone will result in complete resolution of the acute cholecystitis and that he is likely to require operation in any event. Risks including but not limited to anesthesia, bleeding, infection, pain, abscess, scars, need for drains, liver injury, bile duct injury, bile duct leak, duodenal injury, gastric injury, small-bowel injury, colon injury, major vascular injury, need for further procedures as above, need for major abdominal surgery including liver surgery, abscess, and prolonged recovery were discussed in detail. All questions were answered to his satisfaction, and he voiced understanding. Consent was placed on the chart. We will proceed later today as above. Orders were written.
--- NOTE | 2018-06-09 08:45 | PM.PREOP ---
Pre-operative Note Interval Note History & Physical reviewed/Exam performed by Physician: Yes Changes to H&P: No H&P completed within 30 days and has changed as indicated here:: Patient seen and examined today. History and physical examination as well as consult notice are placed on the chart. No changes since this morning obviously. We will proceed with urgent cholecystectomy today as planned.
[2018-06-09] MEDS: SODIUM CHLORIDE 0.9% 1,000 ML 125 ML IV (09:22)
[2018-06-09] MEDS: PANTOPRAZOLE 20 MG TABLET PO (09:22)
[2018-06-09] MEDS: ACETAMINOPHEN 325 MG TABLET 650 MG PO ×2 (11:37→21:35)
[2018-06-09] MEDS: LACTATED RINGERS 1,000 ML 42 ML IV (15:45)
--- NOTE | 2018-06-09 16:09 | SUR.HOLD ---
IV from floor wouldn't run, pain on flush, no blood return. Dc'd; New start in right hand, patient expressed that the previous IV didn't feel good and that he is glad to have it restarted.
[2018-06-09] MEDS: CLINDAMYCIN 900 MG/50 ML PIGGYBACK 50 MG IV (18:40)
--- NOTE | 2018-06-09 19:18 | SUR.OPER ---
Supine on padded OR bed, head on pillow, safety belt at thigh, left arm padded and tucked at side. Arms secured on padded arm board <90 degrees abduction. Legs uncrossed. Padded footboard in place. Tape over blanket to secure lower legs.
[2018-06-09] MEDS: BUPIVACAINE 0.5% (PF) VIAL 30 ML INJ (19:33)
[2018-06-09] MEDS: LIDOCAINE 1% W/EPI INJ 20 ML INJ (19:36)
--- NOTE | 2018-06-09 20:18 | PM.OP.1 ---
Operative Date/Time/Diagnoses Date of procedure: 06/09/18 Time of procedure: 20:18 Pre-op diagnosis: Acute cholecystitis secondary to cholelithiasis Post-op diagnosis: other (Gallbladder mass consistent with neoplasm and left hepatic lobe lesion consistent with possible metastases) Procedure & Clinicians Procedure: Diagnostic laparoscopy with biopsy of gallbladder mass and left hepatic lobe mass Same procedure as scheduled: No (Patient was prepared for laparoscopic cholecystectomy but intraoperative findings suggested gallbladder neoplasm with potential metastases. Procedure was altered accordingly.) Indications: 68-year-old male with known history of choledocholithiasis status post ERCP who presented to the emergency department yesterday evening with severe right upper quadrant abdominal pain, fever, leukocytosis, and Torres sign on examination. Ultrasound and CT scan obtained in the ER confirm significant gallbladder wall inflammation and and possible sludge consistent with acute cholecystitis. He was recommended undergo laparoscopic cholecystectomy with intraoperative cholangiography. Surgeon: Leoncio Alvarez Manufacturing Intern: Shaggy Valverde Click Yes if Unassisted: No Anesthesia Type: General Operative Notes Closure Type: primary Specimen(s): other (1. Gallbladder mass biopsies 2. Left hepatic lobe mass biopsies) Prosthetic devices, grafts, tissues, transplants, or devices: None Estimated Blood Loss (mL): 30 Blood products transfused: none Procedure in detail: After obtaining informed consent the patient was brought to the operating room placed supine on the table. After satisfactory induction of anesthesia a Lacy catheter was inserted to decompress the urinary bladder in the event the patient required open cholecystectomy. SCOAP time out was performed per standard protocol. Abdomen was prepped and draped in usual sterile fashion. A 1 :1 mixture 1% lidocaine with 1 :100,000 epinephrine 0.5% plain Marcaine was injected in the skin and subcutaneous tissue in the midline of the abdomen superior to the umbilicus. Vertical midline incision was created several cm above the umbilicus with 11 scalpel blade for distance of approximately 3 cm. Blunt dissection revealed the rectus fascia which was divided in the midline with 11 scalpel blade and the edges of the fascia were secured with Jana clamps and elevated into the operative field. Fascia was secured with 2 individual interrupted 0 Vicryl sutures superiorly and inferiorly. Peritoneum was visualized and entered under direct visualization with Trisha clamp and a blunt 12 mm Nelson trocar was inserted. Carbon dioxide pneumoperitoneum was created and the abdomen was visually explored with a 30 degree 5 mm laparoscope. Findings are as above. Patient was placed in reverse Trendelenburg position and appropriate site was chosen for placement of a 5 mm epigastric trocar. After achieving local anesthesia the trocar was inserted to the right of the falciform ligament under direct laparoscopic visualization. In a similar fashion to other individual 5 mm trocars were inserted in the right lateral abdomen. The Patricia grasper was used to palpate the left hepatic lobe nodule initially visualized and was felt to be quite solid and firm. The lesion of appeared to distort the surface of the liver with some infiltration into the substance of the liver. No other obvious lesions were identified. Meticulous sharp and blunt dissection was then employed with a combination of the Patricia grasper and [place] dissect her occasionally implying monopolar cautery for hemostasis along the apparent fundus of the gallbladder. However, the gallbladder was completely encased with omentum and significant dense tissue that was quite firm and solid. In fact, the tissue was somewhat difficult to cut even with laparoscopic scissors. At this point the surface of the gallbladder could not even be visualized as it was encased in this apparently neoplastic tissue. In the face of potential cholangiocarcinoma with possible metastases we elected to simply biopsy the masses for diagnostic purposes. Should the patient proved to have neoplastic disease he may potentially be a candidate for surgical resection including partial hepatectomy which we were neither prepared to do in this setting nor are we a quick to do at this particular institution. There is no evidence of any abscess or gross pus at this time and he had note clinical or radiographic evidence preoperatively of ascending cholangitis. Therefore it seemed reasonable to simply obtain tissue for diagnosis, await the results, and proceed with definitive potential surgery at that time at a higher level institution. Therefore multiple biopsies were taken of the gallbladder mass using laparoscopic scissors followed by monopolar cautery for hemostasis. Scissors were also used to obtain a large piece of the left hepatic lobe mass. Hemostasis was rendered with monopolar cautery as well. Great care was taken to avoid injury to adjacent structures. Once hemostasis was verified the right upper quadrant was irrigated with sterile saline solution and suction from the abdomen. Instruments and trocars were removed and the carbon dioxide was evacuated after returning the patient to the supine position. Fascia at the umbilical site was closed previously placed 0 Vicryl suture. Skin at all 4 incisions was then closed in a running subcuticular fashion with 4 0 Monocryl suture. Dermal adhesive was applied. Lacy catheter was removed at the conclusion of the case. Anesthesia was reversed and the patient extubated in the operating room. He was taken recovery in stable condition. Complications: none Condition: stable Disposition: PACU Plan for aftercare: 1. Return to regular surgical floor for ongoing convalescence 2. Await biopsy results
[2018-06-09] MEDS: SODIUM CHLORIDE 0.9% 1,000 ML 100 ML IV (20:57)
[2018-06-09] MEDS: SENNOSIDES 8.6 MG TABLET PO (21:37)
[2018-06-09] MEDS: DOCUSATE 100 MG CAPSULE PO (21:37)
[2018-06-09] MEDS: OXYCODONE IR 5 MG TABLET PO (23:57)
[2018-06-10] VITALS (11 sets, daily range): BP systolic 123–159; BP diastolic 63–90; PULSE 79–96; RESP 16–24; TEMP 36.5–37; O2SAT 90–96
[2018-06-10] MEDS: ACETAMINOPHEN 325 MG TABLET 650 MG PO (03:21)
--- NOTE | 2018-06-10 03:49 | PC.NURSE ---
Requested IS, states I used that incentive spirometer when I have my knee surgery. Can get up to 1200 cc for now & SPO2 in RA 93%. Will cont. POC & monitor.
[2018-06-10 07:00] LABS: Alanine Aminotransferase 84 IU/L (21-72); Albumin 3.3 g/dL (3.5-5.0); Albumin Globulin Ratio 0.9 (1.0-2.8); Alkaline Phosphatase 268 U/L (38-126); Aspartate Aminotransferase 47 IU/L (17-59); Bilirubin Total 1.1 mg/dL (0.2-1.3); Blood Urea Nitrogen 12 mg/dL (9-20); Calcium 8.6 mg/dL (8.4-10.2); Carbon Dioxide 24 mmol/L (22-32); Chloride 101 mmol/L (98-107); Estimated Glomerular Filt Rate > 60.0 mL/min (>60); Globulin 3.6 g/dL (1.7-4.1); Glucose 114 mg/dL (80-110); Potassium 3.9 mmol/L (3.4-5.1); Sodium 135 mmol/L (137-145); Total Protein 6.9 g/dL (6.3-8.2)
[2018-06-10 08:01] LABS: HEMOLYSIS 19 (0-50); Magnesium 1.8 mg/dL (1.6-2.3)
[2018-06-10] MEDS: ASPIRIN EC 81 MG TABLET PO (08:31)
[2018-06-10] MEDS: DOCUSATE 100 MG CAPSULE PO ×2 (08:31→22:29)
[2018-06-10] MEDS: PANTOPRAZOLE 20 MG TABLET PO (08:37)
[2018-06-10] MEDS: ENOXAPARIN 40 MG/0.4 ML SYRINGE SUBCUT (08:55)
[2018-06-10 08:58] LABS: Hematocrit 40.8 % (41-53); Hemoglobin 13.2 g/dL (13.5-17.5); Lymphocytes Percent Auto 5.7 % (25-40); Mean Corpuscular HGB Conc 32.4 % (30-36); Mean Corpuscular Volume 86.4 fL (80-100); Monocytes Percent Auto 10.1 % (3-14); Platelet Count 251 X10^3/uL (150-400); Red Blood Cell Count 4.72 X10^6/uL (4.5-5.9); Red Cell Distribution Width 13.9 % (11.6-14.8); White Blood Cell Count 13.7 X10^3/uL (4.5-11.0)
[2018-06-10 08:59] LABS: Add Manual Diff / Slide Review NO; Basophils Absolute Auto 0 /uL (0-100); Basophils Percent Auto 0.1 % (0-2); Eosinophils Absolute Auto 0 /uL (0-450); Eosinophils Percent Auto 0.1 % (2-4); Lymphocytes Absolute Auto 1 /uL (1100-4500); Monocytes Absolute Auto 1 /uL (0-900); Neutrophils Absolute Auto 12 /uL (1500-7000)
[2018-06-10] MEDS: levoFLOXacin 750 MG/150 ML PIGGYBACK 100 MG IV (09:29)
--- NOTE | 2018-06-10 10:44 | CM.DANOTE ---
DCP: Case received, EMR reviewed and met with patient. Introduced self and role. DCP template completed with information currently available. Patient is a 68 year old female who admitted 2/4 in the evening to the care of the hospitalist team. PCP: Dr. Youssef. Payer: confirmed: [facility]. Patient came to hospital via family vehicle due to fever of over 101. Patient carries diagnosis of Acute Cholecystitis. Patient stated that they were unable to remove the gallbladder, because they had found a mass, and possibly some metastasis. Patient anxious, for they did a biopsy, and he is awaiting the results. He had not yet seen surgeon when this bottle caser had seen him. Patient lives here in [place] with his , Apoorva, and is independent. At this point, patient is concerned about his prognosis. P: DCP to follow closely as plan unfolds. Will be seeing surgeon for follow up. Unclear as to when patient will be able to return home at this point. May depend upon what biopsy shows, or the level of metastasis. Alba Bolanos RN/[employer] Balancing Technician
[2018-06-10] MEDS: metroNIDAZOLE 500 MG/100 ML PIGGYBACK 100 MG IV ×2 (11:14→19:08)
--- NOTE | 2018-06-10 13:20 | PM.PN.1 ---
Subjective Date Patient Seen: 06/10/18 Time Patient Seen: 13:20 Interval history: Patient denies any significant pain. In fact, he last took Tylenol at approximately 3:00 a.m. this morning with good effect. No nausea or vomiting. Tolerating clear liquids today without any issues. His admitting symptoms of right upper quadrant abdominal pain have completely resolved. He is having some mild difficulty with dysuria following surgery yesterday but no hematuria. No subjective fever or chills. No chest pain or shortness of breath. Ambulating without difficulty. Did have a small bowel movement earlier today. Exam Vital Signs (past 8 hours): - 06/10/18 07:09 06/10/18 08:02 06/10/18 08:20 Temperature 97.7 F 98.0 F Pulse Rate 79 88 Respiratory Rate 18 18 Blood Pressure 136/63 146/88 H Pulse Oximetry 96 92 92 06/10/18 12:27 Temperature Pulse Rate 83 Respiratory Rate 16 Blood Pressure 142/84 H Pulse Oximetry 93 Oxygen Delivery Method Room Air Oxygen Flow Rate 0 Narrative Exam Narrative: Obese male sitting comfortably in bedside chair in no acute distress. Alert oriented x3. His is at the bedside for my entire visit as well. No fevers since surgery. No tachycardia. Blood pressure normal. Sclera nonicteric Regular rate and rhythm Abdomen is obese but soft and nondistended. He is minimally but appropriately tender to palpation adjacent to the incisions. No guarding or rebound. No Torres sign today. In fact, he is essentially nontender in the right upper quadrant. Surgical incisions are clean, dry, and intact without ecchymosis or erythema. Objective Labs Result Diagrams: 06/10/18 05:10 06/10/18 05:10 Labs: Laboratory Results - last 24 hr 06/10/18 06/10/18 05:10 05:10 WBC 13.7 H RBC 4.72 Hgb 13.2 L Hct 40.8 L MCV 86.4 MCH 28.0 MCHC 32.4 RDW 13.9 Plt Count 251 Neut % (Auto) 84.0 H Lymph % (Auto) 5.7 L [place] % (Auto) 10.1 Eos % (Auto) 0.1 L Baso % (Auto) 0.1 Neut # (Auto) 12 L Lymph # (Auto) 1 L [place] # (Auto) 1 Eos # (Auto) 0 Baso # (Auto) 0 Sodium 135 L Potassium 3.9 Chloride 101 Carbon Dioxide 24 BUN 12 Creatinine 0.60 L Estimated GFR > 60.0 BUN/Creatinine Ratio 20.0 Glucose 114 H Calcium 8.6 Magnesium 1.8 Total Bilirubin 1.1 AST 47 ALT 84 H Alkaline Phosphatase 268 H Total Protein 6.9 Albumin 3.3 L Globulin 3.6 Albumin/Globulin Ratio 0.9 L Assessment & Plan Assessment Narrative: 68-year-old male postoperative day 1 from planned laparoscopic cholecystectomy with intraoperative cholangiography that was aborted due to gallbladder mass and left hepatic mass that appeared to be quite suspicious for neoplasm. Biopsies were taken and are still pending. I once again reviewed all the intraoperative findings as well as my impressions with the patient and his today in detail. We will continue the Levaquin and Flagyl given the presumed diagnosis of acute cholecystitis at admission but again he has no evidence of cholangitis or abscess. No evidence of choledocholithiasis. Overall he is improved since admission. I will advance him to a low-fat diet. Saline lock the IV. If he does well then likely discharged home tomorrow on antibiotics and appropriate analgesics. I would then plan to see him in the office next week and hopefully have the biopsy results available at that time. At this point the biopsy results would dictate whether he requires evaluation with the surgical oncologist versus a hepatobiliary surgeon for a very difficult open cholecystectomy. He prefers [facility] in [place], [place] for that referral. I will make those arrangements accordingly once he sees me in the office and I have a final pathologic diagnosis. All questions were otherwise answered to his satisfaction, and he voiced understanding. Orders were written.
[2018-06-10] MEDS: TAMSULOSIN 0.4 MG CAPSULE 0.8 MG PO (14:52)
--- NOTE | 2018-06-10 22:14 | PM.PN.1 ---
Subjective Date Patient Seen: 06/10/18 Interval history: Gonzalez Schwartz is a 60-year-old male with past medical history significant for choledocholithiasis status post ERCP, duodenal polyp biopsy proven adenoma, and osteoarthritis who presented with right upper quadrant pain and fever. The patient is resting in bed comfortably. He reports urinary retention in inability to void. He was previously on tamsulosin for BPH in which he reports his is ?large? but he quit taking the tamsulosin for no real reason. He denies pain today. He took hydrocodone last night after surgery. His pain is usually controlled with Tylenol. We discussed surgical findings and future workup and possibilities. He denies headache, chest pain, shortness of breath, abdominal pain, nausea, vomiting, fever, chills, dysuria, diarrhea constipation. He does endorse bloating. He is ambulating independently. Exam Vital Signs (past 8 hours): - 06/10/18 16:08 06/10/18 19:17 Temperature 98.6 F 98.1 F Pulse Rate 86 90 Respiratory Rate 16 16 Blood Pressure 151/79 H 123/80 Pulse Oximetry 95 92 Oxygen Delivery Method Room Air Oxygen Flow Rate 0 Narrative Exam Narrative: General: Older obese gentleman lying in bed and in no acute distress, appears older than stated age, well-developed, well-nourished, appropriately interactive. HEENT: Normocephalic, atraumatic. External ears without defect. Pupils equal, round, and reactive to light. Anicteric sclerae, moist conjunctivae, and no lid lag. Neck: Supple with full range of motion. No lymphadenopathy or thyromegaly. Cardiovascular: Regular rate and rhythm without murmurs, rubs, or gallops appreciated Pulmonary: Clear to auscultation bilaterally without crackles, wheezes, or rhonchi. Normal respiratory effort with no use of accessory muscles. Abdomen: Soft, obese, bowel sounds distant, nontender, mildly distended. No hepatosplenomegaly or masses appreciated. Extremities: No clubbing, cyanosis, or edema. Skin: Normal temperature, turgor, and texture; no rash, ulcers, or subcutaneous nodules appreciated. Neurological: Cranial nerves grossly intact. Normal muscle strength, tone, and bulk. Reflexes, coordination, and sensory function within normal limits. No known gait impairment. Psychiatric: Normal mood and affect. Alert and oriented to person, place, and time. Objective Labs Result Diagrams: 06/10/18 05:10 06/10/18 05:10 Labs: Laboratory Results - last 24 hr 06/10/18 06/10/18 05:10 05:10 WBC 13.7 H RBC 4.72 Hgb 13.2 L Hct 40.8 L MCV 86.4 MCH 28.0 MCHC 32.4 RDW 13.9 Plt Count 251 Neut % (Auto) 84.0 H Lymph % (Auto) 5.7 L [place] % (Auto) 10.1 Eos % (Auto) 0.1 L Baso % (Auto) 0.1 Neut # (Auto) 12 L Lymph # (Auto) 1 L [place] # (Auto) 1 Eos # (Auto) 0 Baso # (Auto) 0 Sodium 135 L Potassium 3.9 Chloride 101 Carbon Dioxide 24 BUN 12 Creatinine 0.60 L Estimated GFR > 60.0 BUN/Creatinine Ratio 20.0 Glucose 114 H Calcium 8.6 Magnesium 1.8 Total Bilirubin 1.1 AST 47 ALT 84 H Alkaline Phosphatase 268 H Total Protein 6.9 Albumin 3.3 L Globulin 3.6 Albumin/Globulin Ratio 0.9 L Assessment & Plan Assessment Narrative: Gonzalez Schwartz is a 60-year-old male with past medical history significant for choledocholithiasis status post ERCP, duodenal polyp biopsy proven adenoma, and osteoarthritis who presented with right upper quadrant pain and fever. 1. 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 Active. -Abdominal ultrasound CT abdomen and pelvis demonstrated acute cholecystitis. -Elevated bilirubin at 1.6 markedly reduced per patient report from his previous admission, elevated transaminases, normal lipase. -Dr. Alvarez of General surgery performed laparoscopic operation for cholecystectomy and found possible gallbladder and remote liver mass possibly equal opportunity representative of cholangiocarcinoma with mets. Biopsies performed and pending. -Continue levofloxacin 750 mg daily and metronidazole every 8 hr. -general surgery consult appreciated time recommendations. Plan to follow up with General surgery next week to discuss biopsy results. 2. Osteoarthritis, chronic, present on admission. Stable. -Patient is status total knee replacement right and partial knee replacement left. -Patient reports no new limitations in activities. 3. Hyperlipidemia, chronic, present on admission. Presumed stable. -Patient transiently on statin therapy discontinued due to intolerance and myopathy. -Follow-up as indicated outpatient. Disposition: Likely discharge tomorrow pending surgeries recommendations and sign off.
[2018-06-10] MEDS: SENNOSIDES 8.6 MG TABLET PO (22:29)
[2018-06-10] MEDS: SODIUM CHLORIDE 0.9% FLUSH 10 ML IV (22:29)
[2018-06-11] MEDS: SODIUM CHLORIDE 0.9% FLUSH 10 ML IV (02:58)
[2018-06-11] MEDS: metroNIDAZOLE 500 MG/100 ML PIGGYBACK 100 MG IV (02:58)
[2018-06-11 03:05] VITALS: BP 150/87; PULSE 97; RESP 20; TEMP 36.9; O2SAT 95
[2018-06-11] MEDS: PANTOPRAZOLE 20 MG TABLET PO (05:37)
[2018-06-11 06:01] LABS: Alanine Aminotransferase 80 IU/L (21-72); Albumin 3.4 g/dL (3.5-5.0); Albumin Globulin Ratio 0.9 (1.0-2.8); Alkaline Phosphatase 282 U/L (38-126); Aspartate Aminotransferase 55 IU/L (17-59); BUN Creatinine Ratio 18.3 (6-22); Bilirubin Total 0.7 mg/dL (0.2-1.3); Blood Urea Nitrogen 11 mg/dL (9-20); Calcium 8.8 mg/dL (8.4-10.2); Carbon Dioxide 24 mmol/L (22-32); Chloride 98 mmol/L (98-107); Estimated Glomerular Filt Rate > 60.0 mL/min (>60); Globulin 3.6 g/dL (1.7-4.1); Glucose 121 mg/dL (80-110); HEMOLYSIS 18 (0-50); Magnesium 1.8 mg/dL (1.6-2.3); Potassium 3.5 mmol/L (3.4-5.1); Sodium 133 mmol/L (137-145)
[2018-06-11 06:02] LABS: Add Manual Diff / Slide Review NO; Basophils Absolute Auto 0 /uL (0-100); Basophils Percent Auto 0.3 % (0-2); Eosinophils Absolute Auto 100 /uL (0-450); Eosinophils Percent Auto 0.6 % (2-4); Hematocrit 38.9 % (41-53); Lymphocytes Absolute Auto 1000 /uL (1100-4500); Lymphocytes Percent Auto 9.1 % (25-40); Mean Corpuscular HGB Conc 33.5 % (30-36); Mean Corpuscular Hemoglobin 28.6 PG (26-34); Mean Corpuscular Volume 85.4 fL (80-100); Monocytes Absolute Auto 1100 /uL (0-900); Monocytes Percent Auto 9.7 % (3-14); Neutrophils Absolute Auto 8900 /uL (1500-7000); Neutrophils Percent Auto 80.3 % (50-75); Platelet Count 238 X10^3/uL (150-400); Red Blood Cell Count 4.55 X10^6/uL (4.5-5.9); Red Cell Distribution Width 13.9 % (11.6-14.8)
[2018-06-11 07:45] VITALS: BP 162/87; PULSE 83; RESP 20; TEMP 36.8; O2SAT 94
--- NOTE | 2018-06-11 08:00 | PM.DS.1 ---
History of Present Illness Date Patient Seen: 06/11/18 Time Patient Seen: 08:00 Chief complaint: states he has a fever of 101.1 Narrative: 68-year-old male with known history of cholelithiasis complicated by choledocholithiasis and March 2018 status post ERCP with stent placement at that time who presented to the emergency department with fever, significant right upper quadrant abdominal pain, and inability to tolerate an oral diet. Examination and evaluation were consistent with significant cholecystitis. Discharge Providers Date of admission: 06/08/18 21:36 Primary care physician: Dalton Youssef MD Consults: 06/09/18 01:06 Consult to Discharge Planning Routine Comment: Consult to Physician Routine Comment: Consulting Provider: Leoncio Alvarez Reason for consultation: Acute cholecystitis Has provider been notified: Yes 06/09/18 15:33 Consult to Discharge Planning Routine Comment: 06/09/18 20:41 Consult to Discharge Planning Routine Comment: Discharge provider: Leoncio Alvarez MD Discharge Date: 06/11/18 Summary Discharge Diagnosis: Diagnostic laparoscopy with biopsy of left hepatic lobe lesion and gallbladder mass June 09 2018 Mild postoperative urinary retention, subsequently resolved Chronic cholecystitis Shoulder pain (Chronic ~2013) Dupuytrens contracture (Chronic 2005) Osteoarthritis (Chronic 2009) Psoriasis (Chronic 2014) Allergic rhinitis (Chronic 1967) Hearing loss (Chronic 2010) Tinnitus of both ears (Chronic Unknown) Colon polyps (Resolved 1997) Hyperlipemia (Chronic 1989) Chickenpox (Resolved 1957) Fractures (Resolved 1963) S/P total knee arthroplasty (Resolved 01/2017) Hx of tracheostomy (Resolved 1956) Status post knee surgery (Chronic) History of knee replacement (Chronic) Hospital Course: Patient was admitted from the emergency department for IV fluid resuscitation, bowel rest, and intravenous antibiotics. He was taken to the operating room for presumed laparoscopic cholecystectomy, but intraoperative findings demonstrated a significant encasement of the gallbladder by what appeared to be a neoplastic process. Findings were suspicious for potential carcinoma. There was also a left hepatic lobe lesion suspicious for metastases. Biopsies were taken, and it was obvious that we would not be able to perform cholecystectomy at this setting. In fact, he may very well require more invasive in significant operation including partial hepatectomy depending upon pathology results. Therefore the surgery was completed and he was returned to the regular surgical floor where he remained afebrile. He responded nicely to intravenous Levaquin and Flagyl. By postoperative day 1 he was tolerating a diet but he did have some difficulties with urinary retention postoperatively. By postoperative day to this resolved and he was having spontaneous normal volume urine output with the addition of tamsulosin to his medical regimen. His pain was quite minimal and otherwise well controlled with oral analgesics. He is ambulating without difficulty. He is passing flatus. Tolerating a low-fat diet. Incisions are healing nicely without evidence of any complications or other issues. He is therefore discharged home on postoperative day 2. He will follow up in the surgery clinic next week. I anticipate having the final pathology report available at that time at which point we will refer accordingly to hepatobiliary surgery or surgical oncology depending upon results. All this was discussed with the patient and his in extensive detail. Questions were answered to their satisfaction, and he voiced understanding. In addition, the patient understands to call or return sooner if he has any recurrent fevers, nausea, vomiting, inability to tolerate a diet, wound drainage, lack of bowel function, progressive urinary retention, or progressive abdominal pain. Status at Discharge Cognitive/behavioral status at discharge: Alert, oriented x3 Functional status at discharge: independent ambulation Overall status at discharge: patient is progressing back to baseline Time Spent with Patient Less than 30 minutes Exam Vital Signs (past 8 hours): - 06/11/18 03:05 Temperature 98.5 F Pulse Rate 97 H Respiratory Rate 20 Blood Pressure 150/87 H Pulse Oximetry 95 Oxygen Delivery Method Room Air Oxygen Flow Rate 0 Narrative Exam Narrative: Well-nourished well-developed obese male lying comfortably in bed in no acute distress. Alert oriented x3. Sclera nonicteric Chest clear to auscultation bilaterally. Regular rate rhythm Abdomen is soft and nondistended. He is minimally tender to palpation. No guarding or rebound. No Torres sign. No masses. Incisions are clean, dry, and intact without erythema or drainage. Extremities show no clubbing or cyanosis Objective Labs Result Diagrams: 06/11/18 05:29 06/11/18 05:29 Labs: Laboratory Results - last 24 hr 06/10/18 06/10/18 06/11/18 05:10 05:10 05:29 WBC 13.7 H 11.0 RBC 4.72 4.55 Hgb 13.2 L 13.0 L Hct 40.8 L 38.9 L MCV 86.4 85.4 MCH 28.0 28.6 MCHC 32.4 33.5 RDW 13.9 13.9 Plt Count 251 238 Neut % (Auto) 84.0 H 80.3 H Lymph % (Auto) 5.7 L 9.1 L [place] % (Auto) 10.1 9.7 Eos % (Auto) 0.1 L 0.6 L Baso % (Auto) 0.1 0.3 Neut # (Auto) 12 L 8900 H Lymph # (Auto) 1 L 1000 L [place] # (Auto) 1 1100 H Eos # (Auto) 0 100 Baso # (Auto) 0 0 Sodium 135 L Potassium 3.9 Chloride 101 Carbon Dioxide 24 BUN 12 Creatinine 0.60 L Estimated GFR > 60.0 BUN/Creatinine Ratio 20.0 Glucose 114 H Calcium 8.6 Magnesium 1.8 Total Bilirubin 1.1 AST 47 ALT 84 H Alkaline Phosphatase 268 H Total Protein 6.9 Albumin 3.3 L Globulin 3.6 Albumin/Globulin Ratio 0.9 L 06/11/18 05:29 WBC RBC Hgb Hct MCV MCH MCHC RDW Plt Count Neut % (Auto) Lymph % (Auto) [place] % (Auto) Eos % (Auto) Baso % (Auto) Neut # (Auto) Lymph # (Auto) [place] # (Auto) Eos # (Auto) Baso # (Auto) Sodium 133 L Potassium 3.5 Chloride 98 Carbon Dioxide 24 BUN 11 Creatinine 0.60 L Estimated GFR > 60.0 BUN/Creatinine Ratio 18.3 Glucose 121 H Calcium 8.8 Magnesium 1.8 Total Bilirubin 0.7 AST 55 ALT 80 H Alkaline Phosphatase 282 H Total Protein 7.0 Albumin 3.4 L Globulin 3.6 Albumin/Globulin Ratio 0.9 L Discharge Plan Discharge Plan Patient Disposition: Home Discharge Med Rec/Prescriptions Prescriptions: New sennosides [senna] 8.6 mg Tablet 8.6 mg PO BEDTIME Qty: 10 RF: 1 hydrocodone-acetaminophen 5-325 mg Tablet 1 tab PO Q6HR PRN (Reason: Pain, Moderate (4-6)) Qty: 20 RF: 0 tamsulosin [Flomax] 0.4 mg Capsule 0.8 mg PO DAILY Qty: 14 RF: 0 docusate sodium 100 mg Capsule 100 mg PO BID Qty: 14 RF: 1 metronidazole [Flagyl] 500 mg tablet 500 mg PO TID Qty: 15 RF: 0 levofloxacin [Levaquin] 750 mg tablet 750 mg PO DAILY Qty: 5 RF: 0 Continued aspirin 81 mg tablet,delayed release (DR/EC) 81 mg PO DAILY RF: 0 vit C,C-[id number]-lutein-zeaxan [PreserVision AREDS-2] 1 EACH capsule 1 tab PO QDAY Qty: 0 RF: 0 Follow up/Referrals: Dalton Youssef MD [Primary Care Provider] - Leoncio Alvarez MD [Physician] - 1 Week (Please call office for exact appointment date and time if not already scheduled) Provider Discharge Instructions Diet: Low-fat Activity: No lifting more than 20 lb until further notice May walk as much as desired May climb stairs No driving while taking opioid pain medication May ride in vehicle Cold/Heat Therapy: May apply ice pack to incisions as needed for comfort Other treatments: May shower Do not soak incisions in bathtub or pool for 2 weeks Skin/Wound/Dressing Care Report to your healthcare provider any signs of infection, such as:: chills, fever, night sweats, increased pain, unusual drainage and unusual redness Dressing: No dressing necessary Discharge Data Primary Care Provider: Dalton Youssef Attending Provider: Chip Leon Admit Date/Time: 06/08/18 21:36
[2018-06-11] MEDS: ACETAMINOPHEN 325 MG TABLET 650 MG PO (09:37)
[2018-06-11] MEDS: ASPIRIN EC 81 MG TABLET PO (09:38)
[2018-06-11] MEDS: DOCUSATE 100 MG CAPSULE PO (09:38)
--- NOTE | 2018-06-11 11:45 | PC.NURSE ---
Discharge pt denied pain in abd but did want to have tylenol for car ride home which was provided for pt. PIV removed prior to d/c. D/c instructions provided to pt and his . Aware to contact MD with any additional questions or concerns and also of f/u apt scheduled. pt states he took all belongings with him. Left in w/c with to vehicle.
== END 2018-06-11 11:30 | disposition home or self-care (01) | DRG 357 ==
LOC: ED 21:24 → AC 21:36
PROVIDERS: Emergency Medicine; Internal Medicine; Surgery; Admitting Provider Nurse Practitioner Adult Health; Emergency Provider Nurse Practitioner Family; PCP Student in an Organized Health Care Education/Training Program; Visit Provider Nurse Practitioner Adult Health
PROC: 0FT44ZZ Resection of Gallbladder, Percutaneous Endoscopic Approach (ICD-10-PCS; CPT 47562; principal; 2018-06-09 15:00)
DX: D49.0 Neoplasm of unspecified behavior of digestive system (principal); Z68.41 Body mass index [BMI] 40.0-44.9, adult; K80.00 Calculus of gallbladder with acute cholecystitis without obstruction; R33.9 Retention of urine, unspecified; Z87.891 Personal history of nicotine dependence; N40.1 Benign prostatic hyperplasia with lower urinary tract symptoms; M19.91 Primary osteoarthritis, unspecified site; E66.9 Obesity, unspecified
CPT/HCPCS: 36415; 36591; 47001; 49321; 74177; 76700; 80048; 80053; 83605; 83690; 83735; 84145; 85025; 87400; 93005; 96365; 99222; 99283; 99285; J1650; J1956; J2405; J2704; J3010; Q9967

== ENCOUNTER 2018-06-22 14:38 | Emergency (ER) | payer OTHER, SELFPAY ==
[2018-06-22 15:27] VITALS: BP 133/82; PULSE 105; RESP 18; TEMP 38.2; O2SAT 96; BMI 40.5
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
[2018-06-22] MEDS: SODIUM CHLORIDE 0.9% 1,000 ML 150 ML IV (16:20)
--- NOTE | 2018-06-22 16:20 | DI.US.S_ITS ---
PROCEDURE: US ABDOMEN LIMITED INDICATIONS: FEVER, RECENT HISTORY OF CHOLECYSTITIS TECHNIQUE: Real-time focused scanning was performed of the abdomen, with image documentation. COMPARISON: [facility], CT, CT ABDOMEN PELVIS W CON, 06/08/2018, 19:21. [facility], US, US ABDOMEN COMPLETE, 06/08/2018, 20:28. FINDINGS: 3 demonstrates an irregular wall and non-mobile debris and stones can be seen within the gallbladder. The gallbladder wall is thickened to 12 mm. There is no biliary dilatation, the common bile duct measures 5 mm. IMPRESSION: Abnormal-appearing gallbladder, with debris and stones, and a thickened gallbladder wall. Dictated by: Alejo Arana M.D. on 06/22/2018 at 16:35 Approved by: Alejo Arana M.D. on 06/22/2018 at 16:36
[2018-06-22 16:32] LABS: Add Manual Diff / Slide Review NO; Basophils Absolute Auto 0 /uL (0-100); Basophils Percent Auto 0.5 % (0-2); Eosinophils Absolute Auto 0 /uL (0-450); Eosinophils Percent Auto 0.3 % (2-4); Hematocrit 41.4 % (41-53); Hemoglobin 13.7 g/dL (13.5-17.5); Lymphocytes Absolute Auto 400 /uL (1100-4500); Lymphocytes Percent Auto 5.2 % (25-40); Mean Corpuscular Hemoglobin 28.3 PG (26-34); Mean Corpuscular Volume 85.7 fL (80-100); Monocytes Absolute Auto 1200 /uL (0-900); Monocytes Percent Auto 14.6 % (3-14); Neutrophils Absolute Auto 6600 /uL (1500-7000); Neutrophils Percent Auto 79.4 % (50-75); Platelet Count 247 X10^3/uL (150-400); Red Blood Cell Count 4.83 X10^6/uL (4.5-5.9); Red Cell Distribution Width 14.9 % (11.6-14.8); White Blood Cell Count 8.3 X10^3/uL (4.5-11.0)
[2018-06-22 16:41] VITALS: BP 114/76; PULSE 101; RESP 20; TEMP 37.5; O2SAT 97
[2018-06-22 16:44] LABS: Alanine Aminotransferase 386 IU/L (21-72); Albumin 3.6 g/dL (3.5-5.0); Albumin Globulin Ratio 0.9 (1.0-2.8); Alkaline Phosphatase 757 U/L (38-126); Aspartate Aminotransferase 186 IU/L (17-59); BUN Creatinine Ratio 18.3 (6-22); Bilirubin Total 0.7 mg/dL (0.2-1.3); Blood Urea Nitrogen 11 mg/dL (9-20); Calcium 9.2 mg/dL (8.4-10.2); Carbon Dioxide 24 mmol/L (22-32); Chloride 97 mmol/L (98-107); Estimated Glomerular Filt Rate > 60.0 mL/min (>60); Globulin 3.9 g/dL (1.7-4.1); Glucose 110 mg/dL (80-110); HEMOLYSIS 29 (0-50); Lipase 236 U/L (23-300); Sodium 131 mmol/L (137-145); Total Protein 7.5 g/dL (6.3-8.2)
[2018-06-22 19:06] VITALS: BP 129/77; PULSE 92; RESP 16; O2SAT 96
[2018-06-22 20:15] VITALS: TEMP 37
[2018-06-22 20:30] VITALS: BP 133/90; PULSE 94; RESP 19; O2SAT 96
[2018-06-22] MEDS: levoFLOXacin 750 MG/150 ML PIGGYBACK 100 MG IV (22:29)
[2018-06-22 23:41] VITALS: BP 123/69; PULSE 92; RESP 18; TEMP 36.6; O2SAT 96
== END 2018-06-23 01:00 | disposition short-term general hospital (02) ==
PROVIDERS: Emergency Provider Nurse Practitioner Family; PCP Student in an Organized Health Care Education/Training Program
DX: K81.9 Cholecystitis, unspecified (principal); J11.1 Influenza due to unidentified influenza virus with other respiratory manifestations
CPT/HCPCS: 36591; 76705; 80053; 81003; 83690; 85025; 87400; 96361; 96365; 96366; 99284; J1956

== ENCOUNTER → 2018-07-21 15:03 | Outpatient (CLI) | payer OTHER, SELFPAY ==
[2018-07-21 15:09] LABS: Bacteria Urine None Seen; RBC Urine None Seen (0-5/HPF); WBC Urine None Seen (0-5/HPF)
[2018-07-21 15:51] LABS: Appearance Urine UA CLEAR; Bilirubin Urine UA 1+ (NEGATIVE); Color Urine UA YELLOW; Glucose Urine UA NEGATIVE (Negative); Ketones Urine UA TRACE (NEGATIVE); Leukocyte Esterase Urine UA NEGATIVE (NEGATIVE); Nitrite Urine UA NEGATIVE (Negative); Occult Blood Urine UA NEGATIVE (Negative); Protein Urine UA NEGATIVE (Negative); Specific Gravity Urine UA 1.025 (1.000-1.035); Urobilinogen Urine UA 0.2 E.U./dL (0.2)
[2018-07-21 15:54] LABS: Ictotest Urine Positive (Negative)
[2018-07-21 15:56] LABS: Culture Indicated Urine Cult Not Indicated; Urine Comments Microscopic Normal
== END ==
PROVIDERS: PCP Student in an Organized Health Care Education/Training Program; Visit Provider Student in an Organized Health Care Education/Training Program
DX: R32 Unspecified urinary incontinence (principal)
CPT/HCPCS: 81001

== ENCOUNTER → 2019-10-27 11:54 | Outpatient (CLI) | payer MEDICARE, SELFPAY ==
[2019-10-27 13:35] LABS: Alanine Aminotransferase 22 IU/L (<50); Albumin Globulin Ratio 1.3 (1.0-2.8); Alkaline Phosphatase 83 U/L (38-126); Aspartate Aminotransferase 26 IU/L (17-59); BUN Creatinine Ratio 23.6 (6-22); Bilirubin Total 0.7 mg/dL (0.2-1.3); Blood Urea Nitrogen 17 mg/dL (9-20); Calcium 9.4 mg/dL (8.4-10.2); Carbon Dioxide 26 mmol/L (22-32); Chloride 104 mmol/L (98-107); Cholesterol 204 mg/dL (140-199); Estimated Glomerular Filt Rate > 60.0 mL/min (>60); Globulin 3.2 g/dL (1.7-4.1); Glucose 100 mg/dL (80-110); HDL Cholesterol 47 mg/dL (40-60); HEMOLYSIS < 15 (0-50); LDL Cholesterol Calculated 135 mg/dL (<100); Potassium 4.4 mmol/L (3.4-5.1); Sodium 136 mmol/L (137-145); Total Protein 7.2 g/dL (6.3-8.2); Triglycerides 108 mg/dL (35-150)
[2019-10-27 13:36] LABS: Hemoglobin A1C% w Est Avg Glu 5.3 % (4.0-6.0)
[2019-10-27 14:00] LABS: Prostate Specific Antigen Scrn 5.35 ng/mL (0.1-4.0)
== END ==
PROVIDERS: PCP Student in an Organized Health Care Education/Training Program; Referring Provider Student in an Organized Health Care Education/Training Program; Visit Provider Student in an Organized Health Care Education/Training Program
DX: Z13.220 Encounter for screening for lipoid disorders (principal); Z12.5 Encounter for screening for malignant neoplasm of prostate; R16.0 Hepatomegaly, not elsewhere classified; E66.9 Obesity, unspecified
CPT/HCPCS: 36415; 80053; 80061; 83036; G0103

== ENCOUNTER → 2019-11-19 12:27 | Outpatient (CLI) | payer MEDICARE, SELFPAY ==
[2019-11-19 14:48] LABS: Prostate Specific Antigen 4.53 ng/mL (0.10-4.00)
== END ==
PROVIDERS: PCP Student in an Organized Health Care Education/Training Program; Referring Provider Student in an Organized Health Care Education/Training Program; Visit Provider Student in an Organized Health Care Education/Training Program
DX: R97.20 Elevated prostate specific antigen [PSA] (principal)
CPT/HCPCS: 36415; 84153

== ENCOUNTER → 2020-01-30 14:45 | Outpatient (CLI) | payer MEDICARE, SELFPAY ==
[2020-01-31 20:42] LABS: COVID19 Sendout Not Detected (Not Detect)
== END ==
PROVIDERS: PCP Student in an Organized Health Care Education/Training Program; Visit Provider Nurse Practitioner
DX: Z11.59 Encounter for screening for other viral diseases (principal)
CPT/HCPCS: 87635

== ENCOUNTER → 2020-04-10 16:27 | Outpatient (CLI) | payer MEDICARE, SELFPAY ==
--- NOTE | 2020-04-10 16:28 | DI.RAD.S_ITS ---
PROCEDURE: XR WRIST LT MIN 3V INDICATIONS: evaluate for wrist fracture. TECHNIQUE: 3 views of the wrist were acquired. COMPARISON: None. FINDINGS: Bones: No fractures or dislocations. No suspicious bony lesions. First CMC and triscaphe joint degeneration. Widened appearance of the scapholunate interval, which is age indeterminate. Soft tissues: No suspicious soft tissue calcifications. IMPRESSION: No fracture. If the patient's symptoms do not improve recommend followup radiographs in 10 days to assess for healing sclerosis/occult injury. Alternatively, further evaluation could be performed with MRI. Chronic degenerative changes Dictated by: Vazquez Lieberman M.D. on 04/10/2020 at 16:57 Approved by: Vazquez Lieberman M.D. on 04/10/2020 at 17:02
== END ==
PROVIDERS: PCP Student in an Organized Health Care Education/Training Program; Referring Provider Family Medicine; Visit Provider Family Medicine
DX: S63.502A Unspecified sprain of left wrist, initial encounter (principal); M18.12 Unilateral primary osteoarthritis of first carpometacarpal joint, left hand; M19.032 Primary osteoarthritis, left wrist; X58.XXXA Exposure to other specified factors, initial encounter
CPT/HCPCS: 73110

== ENCOUNTER → 2020-04-21 16:49 | Outpatient (CLI) | payer MEDICARE, SELFPAY ==
--- NOTE | 2020-04-21 16:51 | DI.MRI.S_ITS ---
PROCEDURE: MR WRIST LT WO CON INDICATIONS: Left wrist and forearm pain TECHNIQUE: Noncontrast coronal proton density fast spin echo and T2 fast spin echo with fat saturation; coronal 3-D gradient echo, axial T1 spin echo and T2 fast spin echo with fat saturation, sagittal T1 spin echo through the wrist. COMPARISON: [facility], CR, XR WRIST LT MIN 3V, 04/10/2020, 17:26. FINDINGS: Image quality: Excellent. Bones and cartilage: There is a nondisplaced, nondepressed split fracture of the distal radius which extends into the radiocarpal joint. The carpal bones are normally aligned. No evidence for avascular necrosis. Overlying cartilage surfaces appear normal. Mild radiocarpal joint, triscaphe joint and 1st CMC joint osteoarthritis. 9 millimeter cyst noted in the subchondral marrow of the radial styloid process which could represent chronic osteoarthritic reactive change versus intraosseous ganglion cyst. Carpal ligaments: There is a focus of increased T2 signal in the central portion of the scapholunate ligament (series 7, image 38) which may represent a small partial tear. The lunotriquetral ligament appears intact. In the absence of intra-articular contrast, the extrinsic carpal ligaments are not well identified. On sagittal images, the pisohamate ligament appears intact. Triangular fibrocartilage complex: The triangular fibrocartilage appears intact. The adjacent meniscal homolog appears normal in the absence of intra-articular contrast. The extensor carpi ulnaris tendon is normal in location and morphology. Tendons and soft tissues: The carpal tunnel structures appear normal, including the median nerve. The ulnar nerve appears normal within Guyon's canal. All six extensor tendon compartments demonstrate normal morphology, without pathologic tendon sheath fluid. No soft tissue ganglion cysts. IMPRESSION: 1. Subacute appearing, nondisplaced, nondepressed intra-articular distal radius fracture. 2. Possible partial tear of the central portion of the scapholunate ligament. MRI with benefit of intra-articular gadolinium could be performed for definitive characterization if clinically indicated. 3. Osteoarthritis. Dictated by: Ana De La Vega MD, PhD on 04/24/2020 at 9:15 Approved by: Ana De La Vega MD, PhD on 04/24/2020 at 12:28
== END ==
PROVIDERS: PCP Student in an Organized Health Care Education/Training Program; Referring Provider Family Medicine; Visit Provider Family Medicine
DX: M25.532 Pain in left wrist (principal); S52.572A Other intraarticular fracture of lower end of left radius, initial encounter for closed fracture; M19.032 Primary osteoarthritis, left wrist; M25.432 Effusion, left wrist; M79.632 Pain in left forearm; X58.XXXA Exposure to other specified factors, initial encounter
CPT/HCPCS: 73221

== ENCOUNTER → 2021-09-03 16:09 | Outpatient (CLI) | payer MEDICARE, SELFPAY ==
[2021-09-03 17:25] LABS: Prostate Specific Antigen 5.54 ng/mL (0.10-4.00)
== END ==
PROVIDERS: PCP Student in an Organized Health Care Education/Training Program; Referring Provider Student in an Organized Health Care Education/Training Program; Visit Provider Student in an Organized Health Care Education/Training Program
DX: R97.20 Elevated prostate specific antigen [PSA] (principal)
CPT/HCPCS: 36415; 84153

== ENCOUNTER → 2022-04-02 13:27 | Outpatient (CLI) | payer MEDICARE, SELFPAY ==
[2022-04-02 14:39] LABS: Prostate Specific Antigen 6.65 ng/mL (0.10-4.00)
== END ==
PROVIDERS: PCP Student in an Organized Health Care Education/Training Program; Referring Provider Student in an Organized Health Care Education/Training Program; Visit Provider Student in an Organized Health Care Education/Training Program
DX: R97.20 Elevated prostate specific antigen [PSA] (principal)
CPT/HCPCS: 36415; 84153

== ENCOUNTER → 2022-06-25 10:20 | Outpatient (CLI) | payer MEDICARE, SELFPAY ==
--- NOTE | 2022-06-25 10:22 | DI.MRI.S_ITS ---
PROCEDURE: MR PELVIC PROSTATE PROTOCOL INDICATIONS: Elevated PSA/family history of prostate cancer TECHNIQUE: Coronal HASTE, axial T1 FSE with fat saturation, 3-plane nonbreath-hold T2 FSE. After the administration of contrast, dynamic axial, delayed axial and coronal VIBE or 2-D FLASH with fat saturation through the pelvis. Optional diffusion weighted imaging and ADC may be performed. COMPARISON: None. FINDINGS: Image quality: Diffusion weighted and dynamic contrast enhanced images are diagnostic. Prostate: Gland size is 7.0 x 7.5 x 5.6 cm; ellipsoid gland volume is 153 mL. There is characteristic hypertrophy of the transition zone consistent with BPH. Prostate CA is commonly multifocal. Report up to 4 findings with PI-RADS assessment, and identify the index (dominant) lesion with the highest PI-RADS value. If 2 or more lesions share highest PI-RADS, index lesion should be the one demonstrating extra-prostatic extension (EPE). If none have EPE, then go with the largest lesion. Lesion size(s): Lesion 1: 1.1 x 0.9 cm in the axial plane measured on diffusion. Lesion location(s) (sector): Lesion 1: Probably transition zone, along the pseudo capsule, at the posterolateral left base Lesion description: Lesion 1: Lenticular lesion with indistinct margin possibly involving the pseudo capsule without definite extraprostatic extension. T2 weighted imaging (T2WI) morphology score: Lesion 1: Three Diffusion weighted imaging (DWI) morphology score: Lesion 1: Two Dynamic contrast enhancement (DCE): Lesion 1: Absent Lesion PI-RADS score: Lesion 1: PI-RADS three Genitourinary system: Bladder wall thickness is normal. Distal ureters are non distended. Bowel and peritoneum: No pathologic free pelvic fluid. Inferior colon and small bowel loops are normal in caliber. Nodes and vessels: No pelvic or inguinal adenopathy by size criteria. Iliac vessels are normal in caliber. There are several incidentally found perirectal lymph nodes measuring up to 6 mm in short axis Soft tissues: No inguinal hernias. Bones: Marrow demonstrates normal overall signal, without lesions to suggest metastases. IMPRESSION: 1. Intermediate probability (PI-RADS three) lesion in the left posterolateral gland at the base. 2. Findings superimposed on characteristic appearance of benign prostatic hypertrophy. 3. Incidental, but nonenlarged perirectal lymph nodes. Dictated by: Dianelys Luna M.D. on 06/25/2022 at 17:33 Approved by: Dianelys Luna M.D. on 06/25/2022 at 17:52
== END ==
PROVIDERS: PCP Student in an Organized Health Care Education/Training Program; Referring Provider Urology; Visit Provider Urology
DX: N42.9 Disorder of prostate, unspecified (principal); R97.20 Elevated prostate specific antigen [PSA]; Z80.42 Family history of malignant neoplasm of prostate
CPT/HCPCS: 72197; A9579

== ENCOUNTER → 2022-08-01 12:53 | Outpatient (CLI) | payer MEDICARE, SELFPAY ==
[2022-08-01 15:38] LABS: Appearance Urine UA CLEAR; Bilirubin Urine UA NEGATIVE (NEGATIVE); Color Urine UA YELLOW; Glucose Urine UA NEGATIVE (Negative); Ketones Urine UA NEGATIVE (NEGATIVE); Leukocyte Esterase Urine UA 1+ (NEGATIVE); Nitrite Urine UA NEGATIVE (Negative); Occult Blood Urine UA TRACE-INTACT (Negative); Protein Urine UA NEGATIVE (Negative); Urobilinogen Urine UA 0.2 E.U./dL (0.2)
[2022-08-01 15:48] LABS: Amorphous Sediment Urine 1+; Bacteria Urine Occasional (0-1); Culture Indicated Urine Specimen Cultured; RBC Urine 0-1/HPF (0-5/HPF); WBC Urine 5-10/HPF (0-5/HPF)
== END ==
PROVIDERS: PCP Student in an Organized Health Care Education/Training Program; Referring Provider Student in an Organized Health Care Education/Training Program; Visit Provider Student in an Organized Health Care Education/Training Program
DX: R30.0 Dysuria; R35.0 Frequency of micturition; R39.15 Urgency of urination; Z87.440 Personal history of urinary (tract) infections
CPT/HCPCS: 81001; 87086

== ENCOUNTER 2022-10-01 12:41 | Emergency (ER) | payer MEDICARE, SELFPAY ==
[2022-10-01] VITALS (8 sets, daily range): BP systolic 143–178; BP diastolic 73–87; PULSE 78–90; RESP 10–23; TEMP 37; O2SAT 96–98; BMI 42.7
--- NOTE | 2022-10-01 12:49 | DI.RAD.S_ITS ---
PROCEDURE: XR CHEST 1V INDICATIONS: chest pain TECHNIQUE: One view of the chest was acquired. COMPARISON: None. FINDINGS: Surgical changes and devices: None. Lungs and pleura: Lungs are clear. No pleural effusions or pneumothorax. Mediastinum: Mediastinal contours appear normal. Heart size is normal. Bones and chest wall: No suspicious bony lesions. Overlying soft tissues appear unremarkable. IMPRESSION: No acute cardiopulmonary disease process. Dictated by: Ana De La Vega MD, PhD on 10/01/2022 at 14:00 Approved by: Ana De La Vega MD, PhD on 10/01/2022 at 14:01
[2022-10-01 13:29] LABS: Add Manual Diff / Slide Review NO; Basophils Absolute Auto 0 /uL (0-100); Basophils Percent Auto 0.8 % (0-2); Eosinophils Absolute Auto 200 /uL (0-450); Hematocrit 41.6 % (41-53); Hemoglobin 14.1 g/dL (13.5-17.5); Lymphocytes Absolute Auto 1200 /uL (1100-4500); Mean Corpuscular HGB Conc 33.9 % (30-36); Mean Corpuscular Hemoglobin 29.3 PG (26-34); Mean Corpuscular Volume 86.6 fL (80-100); Monocytes Absolute Auto 500 /uL (0-900); Neutrophils Absolute Auto 4100 /uL (1500-7000); Neutrophils Percent Auto 68.2 % (50-75); Platelet Count 61 X10^3/uL (150-400); Red Blood Cell Count 4.81 X10^6/uL (4.5-5.9); Red Cell Distribution Width 14.2 % (11.6-14.8)
[2022-10-01 13:30] LABS: INR 0.9 (0.9-1.3); Prothrombin Time 10.2 SECONDS (10.1-12.7)
[2022-10-01 13:32] LABS: PTT Partial Thromboplastin Tim 32 SECONDS (26-36)
[2022-10-01 13:35] LABS: Alanine Aminotransferase 27 IU/L (<50); Albumin 3.6 g/dL (3.5-5.0); Alkaline Phosphatase 74 U/L (38-126); Aspartate Aminotransferase 29 IU/L (17-59); Bilirubin Total 0.6 mg/dL (0.2-1.3); Blood Urea Nitrogen 18 mg/dL (9-20); Calcium 8.5 mg/dL (8.4-10.2); Carbon Dioxide 24 mmol/L (22-32); Chloride 105 mmol/L (98-107); Creatine Kinase 45 U/L (55-170); Estimated Glomerular Filt Rate > 60 mL/min (>60); Globulin 3.6 g/dL (1.7-4.1); Glucose 114 mg/dL (80-110); Lipase 91 U/L (23-300); Magnesium 1.9 mg/dL (1.6-2.3); Sodium 134 mmol/L (137-145); Total Protein 7.2 g/dL (6.3-8.2)
[2022-10-01 13:36] LABS: HEMOLYSIS 59 (0-50)
[2022-10-01 13:37] LABS: Potassium 4.6 mmol/L (3.4-5.1)
[2022-10-01 13:45] LABS: Troponin I < 0.012 ng/mL (0.01-0.034)
--- NOTE | 2022-10-01 14:06 | ED.ARRPALP ---
HPI - Arrhythmia/Palpitations General Chief Complaint: Arrhythmia/Palpitations Stated Complaint: heart palps/can't hear out of LT ear HX covid T-30 Time Seen by Provider: 10/01/22 13:15 Source: patient Mode of arrival: Ambulatory History of Present Illness HPI narrative: Patient here with . Patient has complains of left hearing loss as well as palpitations. Patient states he was seen by primary care earlier this month for hearing loss. He is referred to Otolaryngology and appointment is in November, the summer. Patient denies any injury or foreign body to the left ear. Patient states in his 20s he ruptured or injured his left eardrum while scuba diving. Later he had another problem and he states the ear physician punctured his eardrum to drain some fluids we could here again. Patient states he had COVID last month and soon after he lost his hearing. At the same time he is had palpitation symptoms. He denies any chest pain nausea or sweating with these palpitations. He can hear and feel his heartbeat in his left ear since they hearing loss. He is actually been exercising walking with his and denies any exertional chest pain or palpitations. The palpitations are sporadic. Sometimes at rest and sometimes with walking up steps. He did see his family doctor, in the office earlier this month, Dr. Parekh. No nausea or vomiting no headache. Related Data Previous Rx's Medication Instructions Recorded alfuzosin 10 mg tablet,extended 10 mg PO DAILY #30 tabs 07/03/22 release 24 hr Allergies Allergy/AdvReac Type Severity Reaction Status Date / Time amoxicillin [AMOXICILLIN] Allergy Intermediate HIVES-DELAYED Verified 09/04/22 14:33 RESPONSE tamsulosin AdvReac Mild light Verified 09/04/22 14:33 headed Review of Systems Review of Systems Narrative: GENERAL: negative chills, fatigue, malaise, fever, sweats. HEENT: negative sinus pain, ear pain, sore throat, positive hearing loss RESPIRATORY: negative dyspnea, cough CARDIOVASCULAR: negative chest pain, positive palpitations GASTROINTESTINAL: negative nausea, vomiting, abdominal pain : negative dysuria, frequency, hematuria MUSCULOSKELETAL: negative muscle or bony pain SKIN: negative rash, skin lesions NEUROLOGIC: negative weakness, numbness ROS Unobtainable: All systems reviewed & are unremarkable except as noted in HPI and below Patient History Medical History Allergic rhinitis (1967) Arthritis BPH (benign prostatic hyperplasia) Chickenpox (1957) Dupuytrens contracture (2005) Family history of prostate cancer Fractures (1963) Hearing loss (2010) History of colonic polyps (01/07/17) History of urinary tract infection Hypercholesteremia Lower urinary tract symptoms Osteoarthritis Psoriasis (2014) Rising PSA level Shoulder pain (~2013) Statin intolerance (01/07/17) Tinnitus of both ears (Unknown) Surgical History History of cholecystectomy History of knee surgery Hx of tracheostomy (1956) S/P total knee arthroplasty (01/2017) Status post knee surgery Family History Brother Age: 78 Prostate cancer Heart disease Hyperlipidemia Father Heart disease Hyperlipidemia BPH (benign prostatic hyperplasia) Cancer Sister Age: 65 Thyroid disorder Mother Cancer Family/Other Hyperlipidemia Seizure disorder Hearing impairment Social History marital status: number of children: 1 household members: spouse Smoking Status: Former smoker Tobacco: How many years used: 2 second hand exposure: No alcohol intake: current substance use type: marijuana (occasionally) Type(s) of exercise: walking frequency: 3-4 times per week Smoking Status: Former smoker alcohol intake frequency: a few times a week Substance Use Type: does not use Exam Narrative Exam Narrative: GENERAL: in no distress, not toxic not dyspneic HEAD: Normocephalic. EYES: Pupils equal round ENT: Mucous membranes moist. Examination right ear. TM intact. No bulging no effusion no erythema. Nontender tragus. No external canal erythema edema or discharge or bleeding. Examination left ear, tragus nontender. No swelling edema discharge from the external canal. The tympanic membrane is absent. No discharge. No mastoid tenderness. Patient unable to hear of the left ear completely, with plugging in right ear canal with his finger, whispering ?99 ?as well as finger rubbing patient could not here. NECK: Trachea midline. CARDIOVASCULAR: Regular rate and rhythm without murmurs RESPIRATORY: Clear to auscultation. Breath sounds equal bilaterally. No wheezes, rales, or rhonchi. GASTROINTESTINAL: Abdomen soft, non-tender EXTREMITIES: No gross deformities. BACK: No flank tenderness. NEURO: AOx4. SKIN: Warm and dry PSYCH: Not anxious, is cooperative Initial Vital Signs Initial Vital Signs: Vital Signs Temperature 98.6 F 10/01/22 12:44 Pulse Rate 90 10/01/22 12:44 Respiratory Rate 18 10/01/22 12:44 Blood Pressure 178/87 H 10/01/22 12:44 Pulse Oximetry 97 10/01/22 12:44 Oxygen Delivery Method Room Air 10/01/22 12:44 Course Orders Ordered: ED Orders 10/01/22 12:49 XR chest 1V Stat EKG-12 Lead Stat 10/01/22 13:15 Complete Blood Count AUTO DIFF Stat Comprehensive Metabolic Panel Stat Lipase Stat Magnesium Stat PTT Partial Thromboplastin Adal Stat Prothrombin Time INR Stat Troponin & CK Cardiac Panel Stat 10/01/22 14:06 TSH [Thyroid Stimulating Hormone] Stat Vital Signs Vital signs: Vital Signs - 8 hr 10/01/22 12:44 10/01/22 12:54 10/01/22 12:55 Temperature 98.6 F Pulse Rate 90 78 84 Respiratory Rate 18 14 12 Blood Pressure 178/87 H Pulse Oximetry 97 97 97 Oxygen Delivery Method Room Air 10/01/22 12:55 10/01/22 13:00 10/01/22 13:30 Temperature Pulse Rate 81 Respiratory Rate 17 Blood Pressure 143/73 H 155/83 H Pulse Oximetry 96 Oxygen Delivery Method 10/01/22 13:30 10/01/22 14:00 10/01/22 14:01 Temperature Pulse Rate 78 86 84 Respiratory Rate 11 L 12 10 L Blood Pressure Pulse Oximetry 96 98 98 Oxygen Delivery Method 10/01/22 14:27 10/01/22 14:27 Temperature Pulse Rate 82 Respiratory Rate 23 Blood Pressure 158/85 H Pulse Oximetry 96 Oxygen Delivery Method MDM - Arrhythmia/Palpitations Lab Data 10/01/22 13:15 10/01/22 13:15 Labs: Lab Results 10/01/22 10/01/22 10/01/22 Range/Units 13:15 13:15 13:15 WBC 6.0 (4.5-11.0) X10^3/uL RBC 4.81 (4.5-5.9) X10^6/uL Hgb 14.1 (13.5-17.5) g/dL Hct 41.6 (41-53) % MCV 86.6 (80-100) fL MCH 29.3 (26-34) PG MCHC 33.9 (30-36) % RDW 14.2 (11.6-14.8) % Plt Count 61 L (150-400) X10^3/uL Neut % (Auto) 68.2 (50-75) % Lymph % (Auto) 20.0 L (25-40) % [place] % (Auto) 8.0 (3-14) % Eos % (Auto) 3.0 (2-4) % Baso % (Auto) 0.8 (0-2) % Neut # (Auto) 4100 (2593-4487) /uL Lymph # (Auto) 1200 (8704-8354) /uL [place] # (Auto) 500 (0-900) /uL Eos # (Auto) 200 (0-450) /uL Baso # (Auto) 0 (0-100) /uL PT 10.2 (10.1-12.7) SECONDS INR 0.9 (0.9-1.3) APTT 32 (26-36) SECONDS Sodium 134 L (137-145) mmol/L Potassium 4.6 (3.4-5.1) mmol/L Chloride 105 (98-107) mmol/L Carbon Dioxide 24 (22-32) mmol/L BUN 18 (9-20) mg/dL Creatinine 0.62 L (0.66-1.25) mg/dL Estimated GFR > 60 (>60) mL/min BUN/Creatinine Ratio 29.0 H (6-22) Glucose 114 H (80-110) mg/dL Calcium 8.5 (8.4-10.2) mg/dL Magnesium 1.9 (1.6-2.3) mg/dL Total Bilirubin 0.6 (0.2-1.3) mg/dL AST 29 (17-59) IU/L ALT 27 (<50) IU/L Alkaline Phosphatase 74 (38-126) U/L Total Creatine Kinase 45 L (55-170) U/L CK-MB (CK-2) TNP CK-MB (CK-2) Rel Index TNP Troponin I < 0.012 (0.01-0.034) ng/mL Total Protein 7.2 (6.3-8.2) g/dL Albumin 3.6 (3.5-5.0) g/dL Globulin 3.6 (1.7-4.1) g/dL Albumin/Globulin Ratio 1.0 (1.0-2.8) Lipase 91 (23-300) U/L TSH (0.47-4.68) uIU/mL 10/01/22 Range/Units 13:15 WBC (4.5-11.0) X10^3/uL RBC (4.5-5.9) X10^6/uL Hgb (13.5-17.5) g/dL Hct (41-53) % MCV (80-100) fL MCH (26-34) PG MCHC (30-36) % RDW (11.6-14.8) % Plt Count (150-400) X10^3/uL Neut % (Auto) (50-75) % Lymph % (Auto) (25-40) % [place] % (Auto) (3-14) % Eos % (Auto) (2-4) % Baso % (Auto) (0-2) % Neut # (Auto) (5658-8060) /uL Lymph # (Auto) (9861-6570) /uL [place] # (Auto) (0-900) /uL Eos # (Auto) (0-450) /uL Baso # (Auto) (0-100) /uL PT (10.1-12.7) SECONDS INR (0.9-1.3) APTT (26-36) SECONDS Sodium (137-145) mmol/L Potassium (3.4-5.1) mmol/L Chloride (98-107) mmol/L Carbon Dioxide (22-32) mmol/L BUN (9-20) mg/dL Creatinine (0.66-1.25) mg/dL Estimated GFR (>60) mL/min BUN/Creatinine Ratio (6-22) Glucose (80-110) mg/dL Calcium (8.4-10.2) mg/dL Magnesium (1.6-2.3) mg/dL Total Bilirubin (0.2-1.3) mg/dL AST (17-59) IU/L ALT (<50) IU/L Alkaline Phosphatase (38-126) U/L Total Creatine Kinase (55-170) U/L CK-MB (CK-2) CK-MB (CK-2) Rel Index Troponin I (0.01-0.034) ng/mL Total Protein (6.3-8.2) g/dL Albumin (3.5-5.0) g/dL Globulin (1.7-4.1) g/dL Albumin/Globulin Ratio (1.0-2.8) Lipase (23-300) U/L TSH 1.92 (0.47-4.68) uIU/mL Imaging Data Chest x-ray: Radiologist's Impresson: [address] [address] XRay Report Signed Patient: Gonzalez Schwartz MR#: [id number] : 1950 Acct:[id number] Age/Sex: 72 / M Date of Service: 10/01/22 Loc: ED Accession Number: [id number] ?? Procedure: XR chest 1V Ordering Provider: Sterling Coronel MD PROCEDURE:? XR CHEST 1V ? INDICATIONS:? chest pain ? TECHNIQUE:? One view of the chest was acquired.? ? COMPARISON:? None. ? FINDINGS:? ? Surgical changes and devices:? None.? ? Lungs and pleura:? Lungs are clear.? No pleural effusions or pneumothorax.? ? Mediastinum:? Mediastinal contours appear normal.? Heart size is normal.? ? Bones and chest wall:? No suspicious bony lesions.? Overlying soft tissues appear unremarkable.? ? IMPRESSION:? No acute cardiopulmonary disease process. ? ? Dictated by: Ana De La Vega MD, PhD on 10/01/2022 at 14:00 ? ? Approved by: Ana De La Vega MD, PhD on 10/01/2022 at 14:01 ? MDM Narrative Medical decision making narrative: Patient here with . Patient has complains of left hearing loss as well as palpitations. Patient states he was seen by primary care earlier this month for hearing loss. He is referred to Otolaryngology and appointment is in November, the summer. Patient denies any injury or foreign body to the left ear. Patient states in his 20s he ruptured or injured his left eardrum while scuba diving. Later he had another problem and he states the ear physician punctured his eardrum to drain some fluids we could here again. Patient states he had COVID last month and soon after he lost his hearing. At the same time he is had palpitation symptoms. He denies any chest pain nausea or sweating with these palpitations. He can hear and feel his heartbeat in his left ear since they hearing loss. He is actually been exercising walking with his and denies any exertional chest pain or palpitations. The palpitations are sporadic. Sometimes at rest and sometimes with walking up steps. He did see his family doctor, in the office earlier this month, Dr. Parekh. No nausea or vomiting no headache After history and exam CBC CMP EKG troponin magnesium chest x-ray [facility] CC: Palpitations hearing loss Complicating co-morbidities: Prior history of left ear injury Data collected from: Patient and Medical records reviewed: September 04, 2022 primary care office visit notes Differential considered: Includes but not limited to ruptured tympanic membrane otitis externa otitis media impacted cerumen, foreign body, palpitations arrhythmia a flutter AFib SVT Exam documented above, pertinent findings include: Ruptured left tympanic membrane Lab Test results independently reviewed as above. Pertinent findings: WBC 6.0 hemoglobin 14.1 hematocrit 41.6 INR 0.9 sodium 139 potassium 4.6 BUN 18 creatinine 0.62 GFR greater than 60 troponin less than 0.012 Independently reviewed EKG normal sinus rhythm rate [address] elevation or depression Imaging studies independently reviewed: Chest x-ray no acute process Treatments: None required at this time Consults spoke with Dr. Dipak Stephenson, otolaryngology, at this time patient can follow up with his office. Patient to call today. No other further investigations needed at this time. No antibiotics indicated at this time. Re-evaluations: 2:20 p.m.. Reviewed results with patient and . At this time they are reassuring. Patient agrees to follow up family doctor for outpatient Holter monitor. Knee will continue efforts to see Otolaryngology services before November as scheduled. Return precautions reviewed with him. Palpitations reviewed with him it may be due to the loss of his tympanic membrane on the left as this may cause him to feel and hear his heartbeat and pulse. He is not have the sensation on the right ear is not damaged Discussion: Appropriate for discharge home. Examination and laboratory studies and imaging and EKG are reassuring. Patient did not want to wait for results of the TSH which will not frame changer. Patient's sensation and feeling of heartbeat in the left ear likely due to unmasking due to ruptured tympanic membrane. Appropriate for follow up. Ongoing symptoms for the past 1 month. Patient did not have this sensation of heart be in palpitations in the left ear when he did not have COVID 2 months ago. He only has this sensation in the left ear that is damaged and not in the right ear. Return precautions reviewed with him. Primary care office is going to get him a new family doctor. Referral to ENT given to patient as well. Patient and desire discharge home. Nontoxic at discharge Diagnosis: Ruptured tympanic membrane/palpitations Discharge Plan Departure Patient Disposition: Home Clinical Impression: Perforated left tympanic membrane on examination, Palpitation Instructions: DI for Tympanic Membrane Perforation-Adult, DI for Arrhythmias Activity Restrictions/Additional Instructions: Please see family doctor or who will be your new primary care provider for re-evaluation of your palpitations and to schedule heart monitor/Holter monitor to be done on outpatient. Please call provided otolaryngology/ENT provider today regarding your broken eardrum in the left ear. No swimming or submersion of the ear under water. Please try to keep this clear of moisture and fluid. Return if worse if any questions or concerns. This sensation and feeling heartbeat and your left ear is likely due to the damage eardrum Prescriptions: No Action alfuzosin 10 mg tablet extended release 24 hr 10 mg PO DAILY Qty: 30 12RF Rx Instructions: administer after the same meal each day Referrals: Datlon Youssef MD [Primary Care Provider] - Dalton Presley MD [Physician] - Stand Alone Forms: Patient Portal/API
[2022-10-01 14:53] LABS: Thyroid Stimulating Hormone 1.92 uIU/mL (0.47-4.68)
== END 2022-10-01 14:32 | disposition home or self-care (01) ==
PROVIDERS: Emergency Provider Emergency Medicine; PCP Student in an Organized Health Care Education/Training Program
DX: R00.2 Palpitations (principal); H72.92 Unspecified perforation of tympanic membrane, left ear; Z86.16 Personal history of COVID-19
CPT/HCPCS: 36415; 71045; 80053; 82550; 83690; 83735; 84443; 84484; 85025; 85610; 85730; 93005; 93010; 99283

== ENCOUNTER → 2022-10-08 11:09 | Outpatient (CLI) | payer MEDICARE, SELFPAY ==
[2022-10-10 06:37] LABS: PSA Free % 20.4 % (.); PSA, Total 5.3 ng/mL (0.0-4.0)
== END ==
PROVIDERS: PCP Student in an Organized Health Care Education/Training Program; Referring Provider Urology; Visit Provider Urology
DX: Z80.42 Family history of malignant neoplasm of prostate (principal); R97.20 Elevated prostate specific antigen [PSA]
CPT/HCPCS: 36415; 84153; 84154

== ENCOUNTER → 2023-01-07 11:31 | Outpatient (CLI) | payer MEDICARE, SELFPAY ==
[2023-01-07 13:50] LABS: Prostate Specific Antigen 6.86 ng/mL (0.10-4.00)
== END ==
PROVIDERS: PCP Pediatrics; Referring Provider Urology; Visit Provider Urology
DX: R97.20 Elevated prostate specific antigen [PSA] (principal); R39.9 Unspecified symptoms and signs involving the genitourinary system
CPT/HCPCS: 36415; 84153

== ENCOUNTER → 2023-01-15 11:46 | Outpatient (CLI) | payer MEDICARE, SELFPAY ==
[2023-01-15 12:48] LABS: Add Manual Diff / Slide Review NO; Basophils Absolute Auto 0 /uL (0-100); Basophils Percent Auto 0.5 % (0-2); Eosinophils Absolute Auto 100 /uL (0-450); Eosinophils Percent Auto 1.2 % (2-4); Hematocrit 44.7 % (41-53); Hemoglobin 15.1 g/dL (13.5-17.5); Lymphocytes Absolute Auto 1400 /uL (1100-4500); Lymphocytes Percent Auto 22.4 % (25-40); Mean Corpuscular HGB Conc 33.9 % (30-36); Mean Corpuscular Hemoglobin 29.5 PG (26-34); Monocytes Absolute Auto 500 /uL (0-900); Monocytes Percent Auto 7.1 % (3-14); Neutrophils Absolute Auto 4400 /uL (1500-7000); Neutrophils Percent Auto 68.8 % (50-75); Platelet Count 150 X10^3/uL (150-400); Red Blood Cell Count 5.13 X10^6/uL (4.5-5.9); Red Cell Distribution Width 14.3 % (11.6-14.8); White Blood Cell Count 6.4 X10^3/uL (4.5-11.0)
[2023-01-15 13:00] LABS: Hemoglobin A1C% w Est Avg Glu 5.4 % (4.0-6.0)
[2023-01-15 13:21] LABS: Alanine Aminotransferase 24 IU/L (<50); Albumin 3.6 g/dL (3.5-5.0); Albumin Globulin Ratio 1.1 (1.0-2.8); Alkaline Phosphatase 82 U/L (38-126); Aspartate Aminotransferase 23 IU/L (17-59); BUN Creatinine Ratio 25.8 (6-22); Bilirubin Total 0.6 mg/dL (0.2-1.3); Blood Urea Nitrogen 17 mg/dL (9-20); Calcium 8.9 mg/dL (8.4-10.2); Carbon Dioxide 23 mmol/L (22-32); Chloride 106 mmol/L (98-107); Estimated Glomerular Filt Rate > 60 mL/min (>60); Globulin 3.4 g/dL (1.7-4.1); Glucose 94 mg/dL (80-110); HEMOLYSIS < 15 (0-50); Potassium 4.2 mmol/L (3.4-5.1); Sodium 136 mmol/L (137-145)
[2023-01-15 13:26] LABS: Appearance Urine UA CLEAR; Bilirubin Urine UA NEGATIVE (NEGATIVE); Color Urine UA YELLOW; Glucose Urine UA NEGATIVE (Negative); Ketones Urine UA NEGATIVE (NEGATIVE); Leukocyte Esterase Urine UA NEGATIVE (NEGATIVE); Nitrite Urine UA NEGATIVE (Negative); Occult Blood Urine UA NEGATIVE (Negative); Protein Urine UA NEGATIVE (Negative)
[2023-01-15 13:39] LABS: Bacteria Urine Occasional (0-1); Culture Indicated Urine Cult Not Indicated; RBC Urine 0-1/HPF (0-5/HPF); Squamous Epithelial Cell Urine None Seen (0-5/HPF); WBC Urine 0-1/HPF (0-5/HPF)
[2023-01-15 13:54] LABS: TSH w/ Reflex to FT4 1.47 uIU/mL (0.47-4.68)
[2023-01-16 16:34] LABS: Hep C Virus Ab w/Reflex Quant NEGATIVE s/c (NEGATIVE)
== END ==
PROVIDERS: PCP Pediatrics; Referring Provider Pediatrics; Visit Provider Pediatrics
DX: E78.00 Pure hypercholesterolemia, unspecified (principal); M17.0 Bilateral primary osteoarthritis of knee; N52.9 Male erectile dysfunction, unspecified; R97.20 Elevated prostate specific antigen [PSA]; Z00.00 Encounter for general adult medical examination without abnormal findings; Z80.42 Family history of malignant neoplasm of prostate
CPT/HCPCS: 36415; 80053; 81001; 83036; 84443; 85025; 86803

== ENCOUNTER → 2023-04-04 14:31 | Outpatient (CLI) | payer MEDICARE, SELFPAY | PROVIDERS: PCP Pediatrics; Referring Provider Urology; Visit Provider Urology | DX: Z80.42 Family history of malignant neoplasm of prostate (principal) | CPT/HCPCS: 36415; 84153; 84154 ==

== ENCOUNTER → 2023-07-14 09:44 | Outpatient (CLI) | payer MEDICARE, SELFPAY ==
[2023-07-09 14:25] VITALS: BMI 41.3
[2023-07-14 11:28] LABS: Hemoglobin A1C% w Est Avg Glu 5.4 % (4.0-6.0)
[2023-07-14 11:39] LABS: Alanine Aminotransferase 23 IU/L (<50); Albumin 3.3 g/dL (3.5-5.0); Alkaline Phosphatase 73 U/L (38-126); Aspartate Aminotransferase 23 IU/L (17-59); BUN Creatinine Ratio 24.3 (6-22); Blood Urea Nitrogen 18 mg/dL (9-20); Calcium 8.8 mg/dL (8.4-10.2); Carbon Dioxide 24 mmol/L (22-32); Chloride 109 mmol/L (98-107); Cholesterol 192 mg/dL (140-199); Estimated Glomerular Filt Rate > 60 mL/min (>60); Globulin 3.3 g/dL (1.7-4.1); Glucose 109 mg/dL (80-110); HDL Cholesterol 42 mg/dL (40-60); HEMOLYSIS < 15 (0-50); LDL Cholesterol Calculated 129 mg/dL (<100); Potassium 4.2 mmol/L (3.4-5.1); Sodium 138 mmol/L (137-145); Total Protein 6.6 g/dL (6.3-8.2); Triglycerides 106 mg/dL (35-150)
== END ==
LOC: LAB 09:45
PROVIDERS: PCP Family Medicine; Referring Provider Family Medicine; Visit Provider Family Medicine
DX: R97.20 Elevated prostate specific antigen [PSA] (principal); E78.00 Pure hypercholesterolemia, unspecified; M17.0 Bilateral primary osteoarthritis of knee
CPT/HCPCS: 36415; 80053; 80061; 83036

== ENCOUNTER → 2023-10-27 15:13 | Outpatient (CLI) | payer MEDICARE, SELFPAY ==
[2023-07-09 14:25] VITALS: BMI 41.3
== END ==
PROVIDERS: PCP Family Medicine; Referring Provider Urology; Visit Provider Urology
DX: R97.20 Elevated prostate specific antigen [PSA] (principal)
CPT/HCPCS: 36415; 84153; 84154

== ENCOUNTER → 2024-05-13 16:04 | Outpatient (CLI) | payer MEDICARE, SELFPAY ==
[2023-11-04 13:18] VITALS: BMI 41.3
[2024-05-14 15:36] LABS: PSA Free % 25.5 % (.); PSA, Total 5.6 ng/mL (0.0-4.0)
== END ==
LOC: LAB 16:06
PROVIDERS: PCP Family Medicine; Referring Provider Urology; Visit Provider Urology
DX: R97.20 Elevated prostate specific antigen [PSA] (principal); Z80.42 Family history of malignant neoplasm of prostate
CPT/HCPCS: 36415; 84153; 84154

== ENCOUNTER → 2024-08-02 10:14 | Outpatient (CLI) | payer MEDICARE, SELFPAY ==
[2023-11-04 13:18] VITALS: BMI 41.3
[2024-08-02 11:13] LABS: Alanine Aminotransferase 26 IU/L (<50); Albumin 3.6 g/dL (3.5-5.0); Albumin Globulin Ratio 1.2 (1.0-2.8); Alkaline Phosphatase 67 U/L (38-126); Aspartate Aminotransferase 27 IU/L (17-59); Bilirubin Total 0.9 mg/dL (0.2-1.3); Blood Urea Nitrogen 20 mg/dL (9-20); Calcium 9.1 mg/dL (8.4-10.2); Carbon Dioxide 25 mmol/L (22-32); Chloride 106 mmol/L (98-107); Cholesterol 174 mg/dL (140-199); Estimated Glomerular Filt Rate > 60 mL/min (>60); Glucose 112 mg/dL (80-110); HDL Cholesterol 45 mg/dL (40-60); HEMOLYSIS < 15 (0-50); LDL Cholesterol Calculated 112 mg/dL (<100); Potassium 4.7 mmol/L (3.4-5.1); Sodium 138 mmol/L (137-145); Total Protein 6.6 g/dL (6.3-8.2); Triglycerides 83 mg/dL (35-150)
== END ==
PROVIDERS: PCP Family Medicine; Referring Provider Urology; Visit Provider Urology
DX: E78.00 Pure hypercholesterolemia, unspecified (principal); K57.30 Diverticulosis of large intestine without perforation or abscess without bleeding
CPT/HCPCS: 36415; 80053; 80061

== ENCOUNTER → 2025-03-16 09:50 | Outpatient (CLI) | payer MEDICARE, SELFPAY ==
[2023-11-04 13:18] VITALS: BMI 41.3
== END ==
PROVIDERS: PCP Family Medicine; Referring Provider Urology; Visit Provider Urology
DX: R97.20 Elevated prostate specific antigen [PSA] (principal); Z80.42 Family history of malignant neoplasm of prostate
CPT/HCPCS: 36415; 84153; 84154

== ENCOUNTER → 2025-03-30 13:51 | Outpatient (CLI) | payer MEDICARE, SELFPAY ==
[2023-11-04 13:18] VITALS: BMI 41.3
[2025-03-30 14:32] LABS: Hemoglobin A1C% w Est Avg Glu 5.6 % (4.0-6.0)
[2025-03-30 14:52] LABS: Alanine Aminotransferase 29 IU/L (<50); Albumin 4.0 g/dL (3.5-5.0); Albumin Globulin Ratio 1.2 (1.0-2.8); Alkaline Phosphatase 82 U/L (38-126); Blood Urea Nitrogen 14 mg/dL (9-20); Calcium 9.3 mg/dL (8.4-10.2); Carbon Dioxide 22 mmol/L (22-32); Chloride 106 mmol/L (98-107); Estimated Glomerular Filt Rate > 60 mL/min (>60); Globulin 3.4 g/dL (1.7-4.1); Glucose 111 mg/dL (70-99); HEMOLYSIS < 15 (0-50); Potassium 4.3 mmol/L (3.4-5.1); Sodium 137 mmol/L (137-145); Total Protein 7.4 g/dL (6.3-8.2)
[2025-03-30 15:21] LABS: TSH w/ Reflex to FT4 1.16 uIU/mL (0.47-4.68)
== END ==
PROVIDERS: PCP Family Medicine; Referring Provider Family Medicine; Visit Provider Family Medicine
DX: R97.20 Elevated prostate specific antigen [PSA] (principal); E78.00 Pure hypercholesterolemia, unspecified; E66.01 Morbid (severe) obesity due to excess calories
CPT/HCPCS: 36415; 80053; 83036; 84443